=== PATIENT | male | born 1955 | race Caucasian/White ===

== ENCOUNTER → 2016-03-11 | Outpatient (CLI) | payer MEDICARE, MEDICAID ==
[~2016-03-11] MED LIST: (NONE)10 MG PO; ABILIFY10 MG PO; ABILIFY5 MG PO; ALDACTONE25 MG PO; AMBIEN10 MG PO; ARIPIPRAZOLE5 MG PO; ASPIRIN E.C.325 MG PO; ATIVAN1 MG IM; ATIVAN1 MG PO; BENADRYL50 MG PO; BRIN10TA PO; BRIN20TA PO; BUMETANIDE0.5 MG PO; BUPROPION HCL150 MG PO; CALCIUM 600 + M1 TAB PO; CALCIUM PLUS1 TA1 PO; CALCIUM600 M1 PO; CIPROFLOXACIN500 MG PO; CITALOPRAM20 MG PO; CLINDAMYCIN HC300 MG PO; CLONAZEPAM1 M1 PO; CLOPIDOGREL75 MG PO; DEPAKOTE DR500 MG PO; DEPAKOTE ER250 MG PO; DEPAKOTE ER500 MG PO; DEPAKOTE250 MG PO; DOXYCYCLINE100 M3 PO; EC NAPROSYN500 MG PO; FANAPT12 MG PO; FETZIMA PO; FLAGYL500 MG PO; FOLIC ACID1 MG PO; FUROSEMIDE20 MG PO; FUROSEMIDE40 MG PO; Fetzima PO; GEODON20 M1 IM; HALDOL1 MG PO; IBU-8800 MG PO; IBUPROFEN100 M1 PO; KLOR-CON 88 MEQ PO; LAMICTAL200 MG PO; LAMICTAL25 MG PO; LAMISIL AT11 TP; LAMOTRIGINE150 MG PO; LASIX20 MG PO; LASIX40 MG PO; LATU120T PO; LATU40TA PO; LATU80TA PO; LEVOTHYROXINE0.05 MG PO; LEVOTHYROXINE0.2 MG PO; LEVOTHYROXINE300 MCG PO; LEXAPRO20 MG PO; LISINOPRIL5 MG PO; MELATONIN5 M1 PO; MELATONIN5 M6 PO; METHYLPHENIDATE5 M1 PO; MIRALAX17 GM/PACK PO; MIRTAZAPINE15 MG PO; MOTRIN800 MG PO; MULTIPLE VITAMI1 TA3 PO; MULTIPLE VITAMI1 TAB PO; MULTIVITAMIN1 TA1 PO; NATURE'S BLEND F1 MG PO; NEUDEXT PO; NORTRIPTYLINE H50 M1 PO; NUED1CAP PO; ONE DAILY ESSE1 EACH PO; PAMELOR50 MG PO; PAMELOR75 MG PO; PLAVIX75 M1 PO; PLAVIX75 MG PO; POLYETHYLENE GL1 PO6; PRAVACHOL20 MG PO; PRAVASTATIN SOD20 MG PO; PREDNISONE10 MG PO; PRILOSEC20 M1 PO; REXULTI1 MG PO; RITALIN10 MG PO; ROZEREM8 MG PO; SAPHRIS10 MG PO; SAPHRIS10 MG SL; STOOL SOFTENER100 M1 PO; SYNTHROID,LEV200 MCG PO; Synthroid,Levo50 MCG PO; TRAZODONE HCL300 MG PO; TRAZODONE150 MG PO; TYLENOL500 MG PO; VIIBRYD40 PO; VITAMIN D50000 I3 PO; VITAMIN D50000 IU PO; VITAMIN D50000 UNIT PO; VRAYLAR3 MG PO; VRAYLAR6 MG PO; VYVANSE30 MG PO; VYVANSE50 MG PO; ZESTRIL,PRINIVI10 MG PO; ZESTRIL10 MG PO; ZETIA10 MG PO
== END | disposition home or self-care (01) ==
LOC: PHLEB 12:47
DX: R89.9 Unspecified abnormal finding in specimens from other organs, systems and tissues (principal)

== ENCOUNTER → 2016-05-19 | Outpatient (CLI) | payer MEDICARE, MEDICAID ==
[2016-05-19 17:18] LABS: BASO # 0.1 10*3/uL (0.0-0.1); BASO % 0.6 % (0.0-1.0); EOS # 0.3 10*3/uL (0.0-0.4); EOS % 1.9 % (1.0-4.0); HEMATOCRIT 37.5 % (42.0-52.0); HEMOGLOBIN 12.5 g/dl (14.0-18.0); IG # 0.1 10*3/uL (0.0-0.1); LYMPH # 2.3 10*3/uL (1.3-4.4); LYMPH % 16.6 % (27.0-41.0); MEAN CELL VOLUME 84.3 fl (80.0-94.0); MEAN CORPUSCULAR HGB 28.1 pg (27.0-31.0); MEAN CORPUSCULAR HGB CONC 33.3 g/dl (33.0-37.0); MEAN PLATELET VOLUME 11.2 fl (9.6-12.3); MONO # 1.1 10*3/uL (0.1-1.0); NEUT # 9.9 10*3/uL (2.3-7.9); NEUT % 72.3 % (47.0-73.0); PLATELET COUNT AUTOMATED 248 10*3/uL (130-400); RED BLOOD COUNT 4.45 10*6/uL (4.50-5.90); RED CELL DISTRI WIDTH 14.5 % (0-14.5); WHITE BLOOD COUNT 13.7 10*3/uL (4.8-10.8)
== END | disposition home or self-care (01) ==
LOC: LAB 16:47
PROVIDERS: Internal Medicine
DX: J44.9 Chronic obstructive pulmonary disease, unspecified (principal)

== ENCOUNTER 2016-05-25 14:30 | Emergency (ER) | payer MEDICARE, MEDICAID ==
[~2016-05-25] VITALS: Ht 187.9 cm; Wt 172.4 kg
[2016-05-25 15:13] LABS: BASO # 0.1 10*3/uL (0.0-0.1); BASO % 0.5 % (0.0-1.0); EOS # 0.3 10*3/uL (0.0-0.4); EOS % 1.9 % (1.0-4.0); HEMATOCRIT 39.8 % (42.0-52.0); HEMOGLOBIN 13.1 g/dl (14.0-18.0); IG # 0.1 10*3/uL (0.0-0.1); LYMPH # 1.9 10*3/uL (1.3-4.4); LYMPH % 13.5 % (27.0-41.0); MEAN CELL VOLUME 85.6 fl (80.0-94.0); MEAN CORPUSCULAR HGB 28.2 pg (27.0-31.0); MEAN CORPUSCULAR HGB CONC 32.9 g/dl (33.0-37.0); MONO % 6.7 % (3.0-9.0); NEUT # 10.9 10*3/uL (2.3-7.9); NEUT % 76.9 % (47.0-73.0); PLATELET COUNT AUTOMATED 243 10*3/uL (130-400); RED BLOOD COUNT 4.65 10*6/uL (4.50-5.90); RED CELL DISTRI WIDTH 14.7 % (0-14.5); WHITE BLOOD COUNT 14.2 10*3/uL (4.8-10.8)
[2016-05-25 15:25] LABS: BUN 21 mg/dl (7-24); CARBON DIOXIDE 27 mmol/L (21-32); CHLORIDE 103 mmol/L (98-107); EST GLOM FILT AFRICAN AMERICAN > 60 ml/min; GLUCOSE 101 mg/dL (65-99); POTASSIUM 4.2 mmol/L (3.5-5.1); SODIUM 138 mmol/L (136-145)
[2016-05-25 16:51] LABS: BILIRUBIN NEGATIVE (NEGATIVE); BLOOD NEGATIVE (NEGATIVE); CLARITY SL CLOUDY (CLEAR); COLOR YELLOW (YELLOW); GLUCOSE NEGATIVE (NEGATIVE); KETONE NEGATIVE (NEGATIVE); LEUKO ESTERASE NEGATIVE (NEGATIVE); NITRITE NEGATIVE (NEGATIVE); PH 5.5 (5.0-9.0); PROTEIN NEGATIVE (NEGATIVE)
[2016-05-25 17:02] LABS: URINE AMPHETAMINES < 1000 (1000ng/ml); URINE BARBITURATES < 200 (200ng/ml); URINE COCAINE < 300 (300ng/ml)
[2016-05-25 17:04] LABS: BACTERIA 2+; EPITHELIAL CELLS 0-2; URINE REFLEX COMMENT YES (NO)
[2016-05-25] MEDS ORDERED: LISINOPRIL5 MG PO (21:41)
== END 2016-05-25 18:08 | disposition home health service (06) ==
LOC: ED 14:30
PROVIDERS: Registered Nurse
DX: F33.2 Major depressive disorder, recurrent severe without psychotic features (principal); Z87.891 Personal history of nicotine dependence; Z98.890 Other specified postprocedural states; Z90.89 Acquired absence of other organs; Z79.899 Other long term (current) drug therapy

== ENCOUNTER 2016-05-25 18:40 | Inpatient (IN) | payer MEDICARE, MEDICAID ==
[~2016-05-25] VITALS: Ht 187.9 cm; Wt 172.4 kg
--- NOTE | ~2016-05-25 | PR ---
[place], [place] PROGRESS NOTE NAME: ISMAEL TOBIN UNIT #: [id number] ROOM: 314 DOCTOR: CAMERON MEYER BIRTHDATE: [birth year] DOS: 05/27/2016 CHIEF COMPLAINT: "Good morning." SUMMARY OF VISIT: The patient was assessed in the dining room where he has finished breakfast, engaged readily in conversation. Expresses desire to go home as soon as it was possible, stated that he felt well overall, but admitted as recent as yesterday he just did not feel well. MENTAL STATUS: He is alert and oriented to person, place, approximate time. Mood trending towards euthymic, but still some depressed overtones. Affect is flat and blunted in the constricted range. Some of this is his baseline. He stated that his sleep was okay last night. PLAN: His medications were adjusted significantly yesterday. We need to continue to monitor, see how he is going to do over the next 24 hours and then get a plan for him as far as discharge. NEDRA MEYER CNP CM:PNTRANS [id number] CAMERON MEYER 05/27/16 1258 interface
--- NOTE | ~2016-05-25 | WRIGHTHP ---
[place], [place] PATIENT HISTORY AND PHYSICAL EXAM NAME: ISMAEL TOBIN UNIT #: [id number] ROOM: 314 DOCTOR: SUE WEBB MD BIRTHDATE: [birth year] DOS: 05/26/2016 CHIEF COMPLAINT: "I don't feel well at all, Dr. Webb." HISTORY OF PRESENT ILLNESS: This is a 60-year-old white male who is well known to me from my private practice in [place], [place] as well as multiple psychiatric admissions here to the [facility]. He presented to the Emergency Room complaining of worsening depression with suicidal ideation. He wishes he were and cannot go on like this. He is not felt himself for several weeks. Complicating matters it appears that it is possible that his pharmacy erroneously sent him the wrong medications and he may have been taking a combination of newly prescribed antidepressants with old antidepressant regimen included. He endorsed multiple neurovegetative symptoms including poor sleep and appetite, energy, anhedonia, hopeless, helpless feelings, crying spells, and inability to cope. He is admitted now to rule out possible organic factors, to stabilize on medication and to engage in individual and jara milieu activity. PAST MEDICAL HISTORY: Remarkable for allergic rhinitis, acute renal failure with tubular necrosis, CHF, hypertension, folic acid deficiency, CVA, hypothyroidism, hyperlipidemia, obesity, osteoarthritis, vitamin D deficiency, and diabetes. MENTAL STATUS: The patient is alert and oriented. Mood is depressed. Affect is extremely flat and blunted with a constricted range. He has multiple neurovegetative symptoms are present. There is no hypomania or valentin. There are no overt auditory or visual hallucinations at the present time, although this has been positive in the past. Memory is intact. DIAGNOSIS: Major depression, recurrent, severe. PLAN: I will discontinue his trazodone and Depakote as he does not appear to have been on these his last discharge in March 2016. I will resume his Vraylar and his Pamelor and his Ritalin, what he was on post-discharge. We will maintain individual and jara milieu activity, returning home when stable. [place], [place] PATIENT HISTORY AND PHYSICAL EXAM NAME: ISMAEL TOBIN UNIT #: [id number] ROOM: 314 DOCTOR: SUE WEBB MD BIRTHDATE: [birth year] SUE WEBB MD CM:HISPHYS:PATIENT HISTORY AND PHYSICAL EXAMINATION [id number] SUE WEBB MD 05/26/16 1014 interface
--- NOTE | ~2016-05-25 | DS ---
[place], [place] DISCHARGE SUMMARY NAME: ISMAEL TOBIN UNIT #: [id number] ROOM: 314 DOCTOR: CAMERON MEYER BIRTHDATE: [birth year] DOS: 05/28/2016 HISTORY OF PRESENT ILLNESS: A 60-year-old male known to us from a private practice in [place], [place] with multiple psychiatric admissions here to the [facility]. He presented to the Emergency Room complaining of worsening depression and suicidal ideation. He was and cannot go on like this. He did not feel like himself for the last several weeks. Complicating matter: It appears that possibly that his Pharmacy erroneously sent him wrong medications, it looks like he got medications from his last day here and then when he was admitted to the medical floor, he got his old medications reordered, so he was taking multiple combinations of antidepressants and pills. He was admitted to rule out medical and organic and stabilize back on medication. PAST MEDICAL HISTORY: Allergic rhinitis, acute renal failure with tubular necrosis, CHF, hypertension, folic acid, CVA, hypothyroidism, hyperlipidemia, obesity, osteoarthritis, vitamin D deficiency, and diabetes. DIAGNOSIS: Major depression, recurrent, severe. PLAN: We discontinue the trazodone, the Depakote that we had discontinued on his last admission in March. We resumed his Vraylar, Pamelor, and Ritalin that he was discharged with. This is what he was on post his last discharge. The patient immediately started to feel better and more at his baseline and was asking to go home. MENTAL STATUS: Alert and oriented to person, place, time. Mood euthymic. Affect appropriate. No auditory or visual hallucinations, delusions, paranoia, valentin, or hypomania. No side effects of medication seen. Psych meds that he will be discharged on are vitamin D 50,000 International Units q. week; Ritalin 10 mg 1 at 7:30 a.m., another at 4:30 p.m.; Vraylar 3 mg at 8:00 p.m.; Pamelor 100 mg at bedtime. We will make sure that we reach out to the Pharmacy and make sure that they are aware of the medications that he should be on, so they can clean out their records on him as well. The patient is being discharged in stable condition. He will follow up with our office. [place], [place] DISCHARGE SUMMARY NAME: ISMAEL TOBIN UNIT #: [id number] ROOM: [facility] DOCTOR: CAMERON MEYER BIRTHDATE: [birth year] NEDRA MEYER CNP CM:DISCHOLU [id number] CAMERON MEYER 05/28/16 0932 interface
[2016-05-25 19:01] VITALS: BP 133/86
[2016-05-25 19:57] VITALS: BP 143/72
[2016-05-25] MEDS ORDERED: LISINOPRIL5 MG PO (21:41)
[2016-05-26 07:12] LABS: BASO # 0.1 10*3/uL (0.0-0.1); BASO % 0.4 % (0.0-1.0); EOS # 0.3 10*3/uL (0.0-0.4); EOS % 2.3 % (1.0-4.0); HEMATOCRIT 38.1 % (42.0-52.0); HEMOGLOBIN 12.6 g/dl (14.0-18.0); IG # 0.1 10*3/uL (0.0-0.1); LYMPH # 2.4 10*3/uL (1.3-4.4); LYMPH % 18.3 % (27.0-41.0); MEAN CELL VOLUME 85.2 fl (80.0-94.0); MEAN CORPUSCULAR HGB 28.2 pg (27.0-31.0); MEAN CORPUSCULAR HGB CONC 33.1 g/dl (33.0-37.0); MEAN PLATELET VOLUME 10.7 fl (9.6-12.3); MONO % 7.5 % (3.0-9.0); NEUT # 9.2 10*3/uL (2.3-7.9); PLATELET COUNT AUTOMATED 234 10*3/uL (130-400); RED BLOOD COUNT 4.47 10*6/uL (4.50-5.90); RED CELL DISTRI WIDTH 14.6 % (0-14.5); WHITE BLOOD COUNT 12.9 10*3/uL (4.8-10.8)
[2016-05-26 07:50] LABS: THYROID STIM HORMONE (HS) 0.178 uIU/ml (0.358-4.75)
[2016-05-26 07:52] LABS: HEMOGLOBIN A1c 6.4 % (4.8-5.6)
[2016-05-26 08:00] VITALS: BP 121/66
[2016-05-26 08:22] LABS: VITAMIN D, 25-HYDROXY 42.1 ng/mL (30-100)
[2016-05-26 08:25] LABS: FOLIC ACID > 24.00 ng/mL (>5.38)
[2016-05-26 20:14] VITALS: BP 132/73
[2016-05-27 07:52] VITALS: BP 125/85
[2016-05-27 20:09] VITALS: BP 109/66
[2016-05-28 08:00] VITALS: BP 105/68
[2016-05-28] MEDS ORDERED: NORTRIPTYLINE H50 M1 PO (08:38)
[2016-05-28] MEDS ORDERED: METHYLPHENIDATE5 M1 PO (08:38)
[2016-05-28] MEDS ORDERED: VRAYLAR3 MG PO (08:38)
[2016-05-28] MEDS ORDERED: BENZONATATE100 M1 PO (10:44)
[2016-05-28] MEDS ORDERED: LEVAQUIN750 M1 PO (10:44)
== END 2016-05-28 12:05 | disposition home health service (06) | DRG 885 ==
LOC: 3N 18:40
PROVIDERS: Psychiatry & Neurology Psychiatry; Student in an Organized Health Care Education/Training Program
DX: F33.2 Major depressive disorder, recurrent severe without psychotic features (principal); I11.0 Hypertensive heart disease with heart failure; R45.851 Suicidal ideations; I50.32 Chronic diastolic (congestive) heart failure; Z68.42 Body mass index [BMI] 45.0-49.9, adult; E03.9 Hypothyroidism, unspecified; M19.90 Unspecified osteoarthritis, unspecified site; D64.9 Anemia, unspecified; D72.829 Elevated white blood cell count, unspecified; E78.2 Mixed hyperlipidemia; E66.01 Morbid (severe) obesity due to excess calories; E53.8 Deficiency of other specified B group vitamins; E55.9 Vitamin D deficiency, unspecified; E11.65 Type 2 diabetes mellitus with hyperglycemia; J40 Bronchitis, not specified as acute or chronic; Z83.3 Family history of diabetes mellitus; Z86.73 Personal history of transient ischemic attack (TIA), and cerebral infarction without residual deficits; Z82.49 Family history of ischemic heart disease and other diseases of the circulatory system; Z79.899 Other long term (current) drug therapy

== ENCOUNTER 2016-06-27 13:45 | Inpatient (IN) | payer MEDICARE, MEDICAID ==
[~2016-06-27] VITALS: Ht 190.5 cm; Wt 171.9 kg
--- NOTE | ~2016-06-27 | CON ---
[place], [place] REPORT OF CONSULTATION NAME: ISMAEL TOBIN UNIT #: [id number] ROOM: 504 DOCTOR: RADHA GUTHRIE ED.D (COCO) BIRTHDATE: [birth year] DOS: 06/28/2016 HISTORY OF PRESENT ILLNESS: The patient is a 60-year-old male referred for an evaluation due to the fact his suicide screen was elevated. At the present time, this patient is on the 5th floor at [facility]. He states he is and has one daughter. He does have 2 sisters [address] Jaramillo is his family physician. His medical history is pertinent for thyroid disease, COPD, hypertension, morbid obesity, osteoarthritis, vitamin D deficiency, diabetes mellitus type 2 and major depressive disorder, recurrent. MEDICATIONS: Include Vraylar, Pamelor, Ritalin, vitamin D, Zetia, Lasix, Synthroid, lisinopril, pravastatin, and Aldactone. SOCIAL HISTORY: He denies any drug or alcohol use, and states he is a former smoker. This patient was awake, alert and oriented in all 3 spheres, but was extremely depressed. He states he is suicidal at this time. I discussed with him the option of going to the Senior Behavioral [facility] Unit here at [facility], he agreed that he needed to go there because he was afraid he will harm himself. I discussed this with Dr. Webb and he will probably be admitted later today after discussion with Dr. Stauffer and Dr. Webb. He does not appear to be having any active hallucinations, but is clearly suicidal. DIAGNOSES: 1. Major depressive disorder, severe -- recurrent. 2. Personality disorder, not otherwise specified. RECOMMENDATIONS: In my opinion, this patient would benefit from inpatient admission on the [facility] Unit at [facility]. The patient agreed to go today. Thank you very much for this consult. RADHA GUTHRIE ED.D CM:CONSTR:REPORT OF CONSULTATION 1147 06/28/16 1827 interface
[~2016-06-27 13:45] MED LIST changes: +BENZONATATE100 M1 PO; +LEVAQUIN750 M1 PO
[2016-06-27 13:49] VITALS: BP 146/58
[2016-06-27 14:02] LABS: BASO # 0.1 10*3/uL (0.0-0.1); BASO % 0.6 % (0.0-1.0); EOS # 0.4 10*3/uL (0.0-0.4); EOS % 2.8 % (1.0-4.0); HEMATOCRIT 37.4 % (42.0-52.0); HEMOGLOBIN 12.1 g/dl (14.0-18.0); IG # 0.1 10*3/uL (0.0-0.1); LYMPH # 1.8 10*3/uL (1.3-4.4); LYMPH % 14.2 % (27.0-41.0); MEAN CELL VOLUME 85.4 fl (80.0-94.0); MEAN CORPUSCULAR HGB 27.6 pg (27.0-31.0); MEAN CORPUSCULAR HGB CONC 32.4 g/dl (33.0-37.0); MEAN PLATELET VOLUME 11.2 fl (9.6-12.3); MONO # 0.6 10*3/uL (0.1-1.0); MONO % 4.6 % (3.0-9.0); NEUT # 9.8 10*3/uL (2.3-7.9); PLATELET COUNT AUTOMATED 240 10*3/uL (130-400); RED BLOOD COUNT 4.38 10*6/uL (4.50-5.90); RED CELL DISTRI WIDTH 14.6 % (0-14.5); WHITE BLOOD COUNT 12.7 10*3/uL (4.8-10.8)
[2016-06-27 14:12] LABS: PROTHROMBIN TIME 10.7 SECONDS (9.0-12.4)
[2016-06-27 14:15] LABS: ALBUMIN 3.2 gm/dl (3.1-4.5); ALKALINE PHOSPHATASE 82 U/L (45-117); BILIRUBIN, TOTAL 0.7 mg/dl (0.2-1.0); BUN 15 mg/dl (7-24); CARBON DIOXIDE 24 mmol/L (21-32); CHLORIDE 104 mmol/L (98-107); EST GLOM FILT AFRICAN AMERICAN > 60 ml/min; GLUCOSE 131 mg/dL (65-99); MAGNESIUM 1.9 mg/dL (1.5-2.1); SGOT/AST 25 IU/L (3-35); SGPT/ALT 33 U/L (12-78); SODIUM 140 mmol/L (136-145); TOTAL PROTEIN 8.1 gm/dL (6.4-8.2)
[2016-06-27 14:16] LABS: TROPONIN I < 0.015 ng/ml (<0.045)
[2016-06-27 14:49] VITALS: BP 119/77
[2016-06-27 16:30] VITALS: BP 119/55
[2016-06-27 17:05] VITALS: BP 119/55
[2016-06-27 20:00] VITALS: BP 137/85
[2016-06-28] VITALS: BP 141/86
[2016-06-28 06:58] LABS: BASO # 0.1 10*3/uL (0.0-0.1); BASO % 0.5 % (0.0-1.0); EOS # 0.4 10*3/uL (0.0-0.4); EOS % 3.1 % (1.0-4.0); HEMATOCRIT 36.8 % (42.0-52.0); HEMOGLOBIN 11.9 g/dl (14.0-18.0); IG # 0.1 10*3/uL (0.0-0.1); LYMPH # 1.9 10*3/uL (1.3-4.4); LYMPH % 14.8 % (27.0-41.0); MEAN CELL VOLUME 84.8 fl (80.0-94.0); MEAN CORPUSCULAR HGB 27.4 pg (27.0-31.0); MEAN CORPUSCULAR HGB CONC 32.3 g/dl (33.0-37.0); MONO # 0.8 10*3/uL (0.1-1.0); MONO % 6.4 % (3.0-9.0); NEUT # 9.8 10*3/uL (2.3-7.9); NEUT % 74.6 % (47.0-73.0); PLATELET COUNT AUTOMATED 229 10*3/uL (130-400); RED BLOOD COUNT 4.34 10*6/uL (4.50-5.90); RED CELL DISTRI WIDTH 14.6 % (0-14.5); WHITE BLOOD COUNT 13.1 10*3/uL (4.8-10.8)
[2016-06-28 07:05] LABS: PROTHROMBIN TIME 10.4 SECONDS (9.0-12.4)
[2016-06-28 07:12] LABS: BUN 14 mg/dl (7-24); CARBON DIOXIDE 24 mmol/L (21-32); CHLORIDE 107 mmol/L (98-107); EST GLOM FILT AFRICAN AMERICAN > 60 ml/min; GLUCOSE 115 mg/dL (65-99); MAGNESIUM 2.1 mg/dL (1.5-2.1); PHOSPHOROUS 3.6 mg/dL (2.5-4.9); POTASSIUM 4.1 mmol/L (3.5-5.1); SODIUM 139 mmol/L (136-145)
[2016-06-28 08:00] VITALS: BP 128/88
[2016-06-28 12:00] VITALS: BP 111/66
[2016-06-28] MEDS ORDERED: NORTRIPTYLINE H50 M1 PO (15:09)
[2016-06-28] MEDS ORDERED: RITALIN PO (15:11)
[2016-06-28 15:49] VITALS: BP 100/55
== END 2016-06-28 15:51 | disposition home health service (06) | DRG 206 ==
LOC: ED 13:45 → EDHOLD 15:57 → 5E 16:03
PROVIDERS: Emergency Medicine; Family Medicine
DX: M94.0 Chondrocostal junction syndrome [Tietze] (principal); I11.0 Hypertensive heart disease with heart failure; I50.32 Chronic diastolic (congestive) heart failure; E44.1 Mild protein-calorie malnutrition; Z68.42 Body mass index [BMI] 45.0-49.9, adult; F31.9 Bipolar disorder, unspecified; E66.01 Morbid (severe) obesity due to excess calories; E78.2 Mixed hyperlipidemia; M19.90 Unspecified osteoarthritis, unspecified site; E89.0 Postprocedural hypothyroidism; D72.829 Elevated white blood cell count, unspecified; D64.9 Anemia, unspecified; E11.65 Type 2 diabetes mellitus with hyperglycemia; J30.9 Allergic rhinitis, unspecified; E55.9 Vitamin D deficiency, unspecified; E53.8 Deficiency of other specified B group vitamins; J44.9 Chronic obstructive pulmonary disease, unspecified; F60.9 Personality disorder, unspecified; Z86.73 Personal history of transient ischemic attack (TIA), and cerebral infarction without residual deficits; Z79.4 Long term (current) use of insulin; Z79.899 Other long term (current) drug therapy; Z87.891 Personal history of nicotine dependence; Z82.49 Family history of ischemic heart disease and other diseases of the circulatory system; Z83.3 Family history of diabetes mellitus

== ENCOUNTER 2016-06-28 14:56 | Inpatient (IN) | payer MEDICARE, MEDICAID ==
[~2016-06-28] VITALS: Ht 190.5 cm; Wt 171.9 kg
--- NOTE | ~2016-06-28 | DS ---
[place], [place] DISCHARGE SUMMARY NAME[facility]BIN [id number] UNIT #: [id number] ROOM: 312 DOCTOR: CAMERON MEYER BIRTHDATE: [birth year] DOS: 07/14/2016 HISTORY OF PRESENT ILLNESS: This is a 61-year-old gentleman known to us from his multiple psychiatric admissions to the Behavioral Health Unit as well as our outpatient practice at [place], [place]. He presented to the Emergency Room with chief complaint of chest pain and subsequently he was admitted to the medical floor where organic factors were rule out. He was evaluated by Dr. Shant Vasquez, psychologist. In the course of his evaluation, I found him to be significantly depressed with multiple neurovegetative symptoms including poor sleep, appetite, anergia, anhedonia, helplessness, hopelessness feeling, crying spells, inability to cope. He endorses positive suicidal thoughts without a plan. He reports that he has been compliant with his medications, but is gradually decompensated for no apparent reason. He was admitted to behavioral health unit to rule out organic factors and to try to stabilize him on the medication. PAST MEDICAL HISTORY: Includes normocytic anemia, hypothyroidism, allergic rhinitis, osteoarthritis, hypertension, congestive heart failure, vitamin D deficiency, folic acid deficiency, mild protein-calorie malnutrition, morbid obesity, COPD, and diabetes. HOSPITAL COURSE: We resumed his Pamelor, his Vraylar and restarted him back on his Ritalin. Eventually, the Vraylar was increased over the course of his stay to help augment the effectiveness of the Pamelor. The patient would do well for a while and then all of a sudden, the medications stopped working. We need to evaluate as outpatient the possibility of maybe doing a genetic swab on him if insurance will pay. This is an expensive procedure, a few thousand dollars. Eventually, we discontinued his Rozerem and Vraylar due to this ineffectiveness and his Ritalin because we were not able to eventually obtain it here at the hospital. We started him on Seroquel 100 mg at night to help with severe treatment resistant depression and sleep. It was also augmenting the effectiveness of his Fetzima which was at 120 mg q.8 p.m. that was also helping with depression and sleep and then we eventually obtained Vyvanse to help stimulate his energy and it lasts 10-12 hours during the day to help give him some increased energy, so that he does not feel as depressed. Engage in individual and jara milieu therapy and patient eventually was sleeping better and overall feeling better. MENTAL STATUS: He is alert and oriented to person, place, approximate time. Mood is trending towards euthymic, but there is ongoing depression, which unfortunately I believe is his baseline. Affect is flat, blunted in the constricted range. He still endorses multiple neurovegetative symptoms at times, but this morning upon meeting me in the cutler, he said, "I slept very well last night and I think I am ready to go home." There are no overt signs of auditory or visual hallucinations, delusions, paranoia, valentin or hypomania. PLAN: The patient is being discharged to home. He had originally wanted to be placed into assisted living. Unfortunately, I do not think he meets the criteria that assisted livings need and so we were denied at every crossroad we came to. He is being discharged on Vyvanse 30 mg q.a.m., Seroquel 100 mg at [place], [place] DISCHARGE SUMMARY NAME: ISMAEL TOBIN UNIT #: [id number] ROOM: 312 DOCTOR: CAMERON MEYER BIRTHDATE: [birth year] bedtime, Fetzima 120 mg q.8 p.m. He is being discharged in stable condition. He needs to follow up at outpatient therapy with Sabine Benson and psychiatrist for medication management. NEDRA MEYER CNP CM:DISCHARG [id number] CAMERON MEYER 07/14/16 1304 interface
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
--- NOTE | ~2016-06-28 | PR ---
[place], [place] PROGRESS NOTE NAME: ISMAEL TOBIN UNIT #: [id number] ROOM: 312 DOCTOR: SUE GANNON MD BIRTHDATE: [birth year] DOS: 07/10/2016 CHIEF COMPLAINT: "I slept may be a little better last night. I think the medicine might be helping." SUMMARY OF THE VISIT: The patient was interviewed in the dining area, where he was sitting alone. He reports that he did sleep a little better with the medication changes and is perhaps starting to feel a little bit less depressed. He still lacks energy and desire and still finds it very hard for him to engage in activities. He is excessively worried about the future and is hoping that he is able to get into the assisted living as this will take a lot of stress off of his shoulders. His only complaint from a side effect standpoint is a mild headache, but these symptoms are not significant enough that warrants any adjustment of the medicine. MENTAL STATUS: He is alert and oriented to person, place and time. Mood does seem to be slightly trending towards euthymia and affect is more appropriate. There are no symptoms of valentin or hypomania. There are no overt auditory or visual hallucinations. Memory is fairly intact. PLAN: I will maximize out Fetzima to 120 mg at bedtime. I will change the Ritalin, so that he receives only a 10 mg dose of 7 a.m. and at 2:00 p.m., try to prevent having him take the Ritalin too late in the day, so it does not interfere with his sleep patterns. We will engage in individual and jara milieu activity, returning home when stable. SUE GANNON MD CM:PNTRANS [phone] SUE GANNON MD 07/10/16 1018 interface
--- NOTE | ~2016-06-28 | PR ---
[place], [place] PROGRESS NOTE NAME: ISMAEL TOBIN UNIT #: [id number] ROOM: 312 DOCTOR: CAMERON MEYER BIRTHDATE: [birth year] DOS: 07/08/2016 CHIEF COMPLAINT: "I am still depressed. I am really sorry about that." SUMMARY OF VISIT: The patient was assessed in the dining room where he was finishing up his coffee. He still states that he is still depressed and this is upsetting to him and that he is waking every hour at least once or twice. MENTAL STATUS EXAMINATION: He is alert and oriented to person, place, approximate time. Mood still very depressed. Affect is flat, blunted, and in a constricted range. There is no overt signs of auditory or visual hallucinations, delusions, paranoia, valentin or hypomania. PLAN: Dr. Webb discontinued his Pamelor yesterday and started him on Fetzima. I discussed with Dr. Webb, I am going to go ahead and increase that Fetzima again and with the goal to rapidly titrate this up and utilize the Rozerem at bedtime straight and trying to bring him back to break his cycles of not sleeping. We will continue to try to engage in individual and jara milieu therapy. We are still looking into the option of the possible assisted living for him to help with his loneliness and his need to have some assistance with his ADLs and daily stuff. Plan to discharge once stable. NEDRA MEYER CNP CM:PNTRANS 8 [phone] CAMERON MEYER 07/08/162306 interface
--- NOTE | ~2016-06-28 | PR ---
[place], [place] PROGRESS NOTE NAME: ISMAEL TOBIN UNIT #: [id number] ROOM: 312 DOCTOR: MEERA PRATT BIRTHDATE: [birth year] DOS: 07/12/2016 CHIEF COMPLAINT: "I slept better last night." SUMMARY OF THE VISIT: The patient was seen in the group room, where he was seated by himself in the corner. He engaged pretty readily whenever I went over to talk to him. He did not have his afternoon dose of Ritalin last night and states that he did actually sleep better last night. He still remains nervous about going home, but is also open to going to assisted living after evaluation once he gets home. His mood is good. Affect is flat. MENTAL STATUS EXAMINATION: He is alert and oriented. He actually was kind of positive about going home and going to assisted living. PLAN: We will go ahead and discontinue his afternoon dose of Ritalin since it seems that he slept better without having that. Continue to engage in individual and jara milieu and discharge to home whenever stable. Meera Pratt NP CM:PNARMAAN 5 [phone] MEERA PRATT 07/12/161909 interface
--- NOTE | ~2016-06-28 | PR ---
[place], [place] PROGRESS NOTE NAME: ISMAEL TOBIN UNIT #: [id number] ROOM: 312 DOCTOR: CAMERON MEYER BIRTHDATE: [birth year] DOS: 07/03/2016 CHIEF COMPLAINT: "Good morning." SUMMARY OF VISIT: The patient was interviewed in his room where he was getting up getting ready for the day. The patient is still overwhelmingly depressed. He talked to him about the fact that he only lives in one room apartment. A few times a week he will get up and have breakfast at the [employer] shop and sometimes he will just go to [employer] and walk around. This is the first time he has admitted to being overwhelmingly lonely, and that his depression is just so bad that he just automatically starts wishing his life was over because he is so alone and depressed. MENTAL STATUS: He is alert and oriented to person, place, approximate time. Mood still depressed. Affect is flat, blunted in a constricted range. Again, he is opening up a little bit more. He did complain that he does not feel that he is sleeping, but he is not sure. We did increase his one medication last night to help with sleep. I am going to leave the medications alone tonight and see if we get some improvement in his sleep before just adjusting his medications more. PLAN: Again I increased his Pamelor to 150 mg at bedtime last night up from 100 mg. We will continue to try to engage in individual and jara milieu therapy. We are working with social work to see if he is a candidate for assisted living more so because of his severe depression and loneliness. I think this is what is affecting his quality of life is his loneliness and then this is what is triggering his depression and suicidal ideation. He just has no support system, no friends, nothing. We will continue to try to engage in individual and jara milieu therapy, adjust medications accordingly and go from there. NEDRA MEYER CNP CM:PNTRANS [id number] CAMERON MEYER 07/04/16 0018 interface
--- NOTE | ~2016-06-28 | PR ---
[place], [place] PROGRESS NOTE NAME: ISMAEL TOBIN UNIT #: [id number] ROOM: 312 DOCTOR: SUE GANNON MD BIRTHDATE: [birth year] DOS: 07/13/2016 CHIEF COMPLAINT: "I am still so depressed history, I am sorry." SUMMARY OF THE VISIT: The patient was interviewed in the dining area, where he sat by himself. As I approached, he reported to me that he still feels horribly depressed and that he is not sleeping well at all. He tends to toss and turn throughout the night and then has little to no energy during the day. He complains of poor concentration and fleeting suicidal thoughts. He denies medication side effects and is unclear though the meds really do seem to be helping or not. MENTAL STATUS: He is alert and oriented with some time gaps. Mood does seem to be depressed. Affect is flat, blunted with a constricted range. He endorses multiple neurovegetative symptoms. There is no valentin or hypomania, likewise there are no auditory or visual hallucinations. No delusions, no paranoia. Memory is relatively intact. PLAN: At this point, I will discontinue the Rozerem and the Vraylar due to ineffectiveness. I will discontinue Ritalin due to the hospital not being able to obtain it. I will start him on Seroquel 100 mg at bedtime. I will be using this not only to augment the effectiveness of the Fetzima but also to act as a sleep aid. I will discuss with the pharmacy whether or not they could obtain Vyvanse using this, then as a stimulate that will last a good 10-12 hours during the day. We will continue to engage in individual and jara milieu activity with the ultimate plan to discharge then when stable. SUE GANNON MD CM:PNTRANS [phone] SUE GANNON MD 07/13/16912 interface
--- NOTE | ~2016-06-28 | PR ---
[place], [place] PROGRESS NOTE NAME: ISMAEL TOBIN UNIT #: [id number] ROOM: 312 DOCTOR: SUE WEBB MD BIRTHDATE: [birth year] DOS: 06/30/2016 CHIEF COMPLAINT: "I am still depressed; Dr. Webb, but I did sleep a little better." SUMMARY OF THE VISIT: The patient was interviewed as he rested quietly in bed. He awoke easily and sat up and engaged in conversation with me reporting that he did sleep a little better with the increase in the Vraylar, but still feels horribly down and depressed. He reports he lacks energy and desire and just seems very hopeless and helpless. MENTAL STATUS: He is alert and oriented. Mood does seem to be depressed. Affect is flat and blunted with constricted range. There is no hypomania or valentin. He does still have edginess with some irritability. There are no auditory or visual hallucinations; however, no delusions, no paranoia. Memory is relatively intact. PLAN: I will go ahead and maximize the dose of Vraylar now from 4.5 mg at bedtime to 6 mg at bedtime. Maintain his Pamelor and Ritalin at their current dosages engage in individual and jara milieu activity with the plan to return home when psychiatrically stable. SUE WEBB MD CM:PNTRANS [phone] 1 SUE WEBB MD 07/01/16 0213 interface
--- NOTE | ~2016-06-28 | PR ---
[place], [place] PROGRESS NOTE NAME: ISMAEL TOBIN UNIT #: [id number] ROOM: 312 DOCTOR: SUE GANNON MD BIRTHDATE: [birth year] DOS: 07/07/2016 INTERVAL NOTE CHIEF COMPLAINT: "I still didn't sleep well Dr. Gannon, I don't know what is wrong with me." SUMMARY OF THE VISIT: The patient was interviewed as he sat eating his breakfast. He reported very happily that Sabine Benson, his outpatient counselor, did come and visit him yesterday. On a negative note though, he reports he is continuing to have significant sleep difficulty with difficulty falling asleep, sleep continuity disturbance, director labor standards awakening. He remains very despondent and depressed and sees no hope in life. He still voices that he feels that at times the world would be better off without him in it. He is hopeful though that social problems specialist will be able to assist him in placement into [place] an assisted living community. At this point, I discussed with him the option of switching off the Pamelor and he is willing to do so. MENTAL STATUS: He remains alert and oriented with some time gaps. Mood remains very depressed. Affect is flat and blunted with constricted range. There is no hypomania or valentin. There are no auditory or visual hallucinations. No delusions, no paranoia. Short, intermediate, and penitentiary memory are relatively intact. PLAN: I will go ahead and discontinue the Pamelor now given the fact that the dose was gradually pushed to its maximum of 200 without much benefit. I will start him on a unique antidepressant, Fetzima 40 mg at bedtime with the plan to rapidly titrate this upward and also utilize Rozerem 8 mg at bedtime straight in an effort to try to break the cycle of him not sleeping. We will continue to engage him in individual and jara milieu activity with the ultimate plan to place at [place] when stable. SUE GANNON MD CM:PNTRANS 0804 SUE GANNON MD 07/08/1639 interface
--- NOTE | ~2016-06-28 | PR ---
[place], [place] PROGRESS NOTE NAME: ISMAEL TOBIN UNIT #: [id number] ROOM: 312 DOCTOR: MEERA PRATT BIRTHDATE: [birth year] DOS: 07/11/2016 CHIEF COMPLAINT: "I didn't sleep well and I have had an upset stomach yesterday and today." SUBJECTIVE: He was seen in the dining room. He had eaten a 100% of his breakfast and 75-100% of all of his meals the day prior. He seems to have a lot of somatic complaints. The staff reported that he did sleep last night. He seems very nervous about moving on to the next level of care and that may be why he is having these somatic complaints. We will continue to monitor and support him. He will continue to attend groups and hopefully get him more comfortable with moving onto the next level of care. Meera Pratt NP CM:RED [id number] MEERA PRATT 07/11/16 1357 interface
--- NOTE | ~2016-06-28 | PR ---
[place], [place] PROGRESS NOTE NAME: ISMAEL TOBIN UNIT #: [id number] ROOM: 312 DOCTOR: CAMERON MEYER BIRTHDATE: [birth year] DOS: 07/04/2016 CHIEF COMPLAINT: "Good morning, I'm still quite depressed, I'm not sleeping, I'm still suicidal." SUMMARY OF VISIT: The patient was assessed in the dining room where he was sitting by himself. He is just overwhelmingly depressed. He is stating that he thinks he is waking up every hour and the hour; however, nurses' notes note that he is sleeping when they come into his room in the evenings. He offers immediately that he is still depressed, still thinking about suicide, no plan and he apologizes. This has been his routine since he has been here. MENTAL STATUS: He is alert and oriented to person, place, approximate time. He looks depressed. He is acting depressed. Affect is flat, blunted in a constricted range, but some of this is his baseline. PLAN: He is on the maximum dose of Pamelor 150 mg at bedtime. He is on the maximum dose of Vraylar 6 mg q. day. I am going to bump up his Ritalin. I know Dr. Webb started that to give him a little boost of energy, kind of get him out of that depressive . He is currently on 10 mg twice a day. I am going to increase it to 15 mg twice a day and see if this boost of energy will be interpreted by him and his brain as getting out of his depression. We will continue to try to engage in individual and jara milieu therapy with the plan to discharge when stable. NEDRA MEYER CNP CM:PNTRANS [id number] CAMERON MEYER 07/04/16 1354 interface
--- NOTE | ~2016-06-28 | WRIGHTHP ---
[place], [place] PATIENT HISTORY AND PHYSICAL EXAM [id number] UNIT #: [id number] ROOM: 315 DOCTOR: SUE GANNON MD BIRTHDATE: [birth year] DOS: 06/28/2016 CHIEF COMPLAINT: "I have just been so depressed. I don't know what is wrong." HISTORY OF PRESENT ILLNESS: This is a 60-year-old white male who is known to me from multiple psychiatric admissions to the [facility] as well as my outpatient practice in [place], [place]. The patient had presented to the Emergency Room with a chief complaint of chest pain and subsequently got admitted to the medical floor where organic factors were ruled out. He was evaluated by Dr. Shant Vasquez, psychologist, who in the course of evaluating him found him to be horribly depressed with multiple neurovegetative symptoms that included poor sleep and appetite, anergia, anhedonia, hopeless and helpless feelings, crying spells, and inability to cope. He also endorsed positive suicidal thoughts with a plan. The patient reports that he has been compliant with his medicine, but just has gradually decompensated for no apparent reason. He was admitted to the [facility] to further rule out organic factors and to attempt to stabilize on medication. PAST MEDICAL HISTORY: Remarkable for normocytic anemia, hypothyroidism, allergic rhinitis, osteoarthritis, hypertension, chronic congestive heart failure, vitamin D deficiency, folic acid deficiency, mild protein-calorie malnutrition, morbid obesity, COPD, and diabetes. MENTAL STATUS: The patient is alert and oriented to person, place, and time. Mood is depressed with anxious overtones and there is a hint of irritability. He is very short and terse and does endorse that he is feeling much more on edge and irritable. He denies any auditory or visual hallucinations. No delusions, no paranoia. Memory is fairly well intact. DIAGNOSIS: Bipolar type 1, mixed. PLAN: I have resumed his Pamelor, his Vraylar, and I have restarted his Ritalin. I will increase the Vraylar from 3 mg at bedtime to 4.5 mg at bedtime to augment the Pamelor as well as to decrease some of the mood lability. We will engage him in individual and jara milieu activity with the ultimate plan to return home when stable. [place], [place] PATIENT HISTORY AND PHYSICAL EXAM NAME: ISMAEL TOBIN UNIT #: [id number] ROOM: 315 DOCTOR: SUE GANNON MD BIRTHDATE: [birth year] SUE GANNON MD CM:HISPHYS:PATIENT HISTORY AND PHYSICAL EXAMINATION SUE GANNON MD 06/29/1649 interface
--- NOTE | ~2016-06-28 | PR ---
[place], [place] PROGRESS NOTE NAME: ISMAEL TOBIN UNIT #: [id number] ROOM: 312 DOCTOR: SUE WEBB MD BIRTHDATE: [birth year] DOS: 07/06/2016 CHIEF COMPLAINT: "Dr. Webb, I didn't sleep well at all last night." SUMMARY OF THE VISIT: The patient was interviewed in the dining area where he continued to complain of severe depression. He notes that last night he had trouble falling asleep, he woke up frequently throughout the night, tossing and turning still stating he is very depressed. He is anxious to find out whether or not he will be able to qualify for an assisted living situation. He and I talked at length about [facility] and what to expect there and he does seem reasonable excited about that possibility. He reports tolerating the current medication regimen well, noting no side effects. MENTAL STATUS: He is alert and oriented to person, place and time. Mood does seem to be still depressed with anxious overtones. There is no valentin. There is no psychosis. Memory is relatively intact. PLAN: I will increase the Pamelor from 150 mg at bedtime to 200 mg at bedtime. I may need to switch to amitriptyline or to another agent altogether. I will put a consult in for Sabine Benson, his outpatient counselor, continue to have social media specialist explore assisted living possibilities. SUE WEBB MD CM:PNTRANS [id number] SUE WEBB MD 07/06/16 1048 interface
--- NOTE | ~2016-06-28 | PR ---
[place], [place] PROGRESS NOTE NAME: ISMAEL TOBIN UNIT #: [id number] ROOM: 312 DOCTOR: CAMERON MEYER BIRTHDATE: [birth year] DOS: 07/01/2016 CHIEF COMPLAINT: "Good morning, I'm still very depressed and suicidal, but no plan." SUMMARY OF VISIT: The patient was interviewed in the dining room where he was eating breakfast. He has a good appetite. He states that he slept well, but he immediately went in on the fact that his depression is so bad. He does not know why it continues to get bad and he is not getting any better. I asked about outside therapy. He does follow with Sabine Benson, he says for more than 20 years. MENTAL STATUS: He is alert and oriented to person, place, approximate time. Affect is flat, blunted in a constricted range. He is very depressed mood corona. No overt signs of auditory or visual hallucinations, delusions, paranoia, valentin or hypomania. He is not really irritable. He just frustrated with his situation. He just does not know why when he gets depressed like this. He automatically starts thinking negative thoughts. He says when he things like that about suicide, he never has a plan, but he is just frustrated with that is the first place he goes in his mind. PLAN: I am going to keep his meds where they are right now. We are going to try to engage in individual and jara milieu therapy. I think the patient needs a strong male influence in his life to help redirect him, may be try and change things up for him a little bit. He did ask about if he will qualify for assisted living. I think part of his problem also is this man is very lonely. He does not have a lot of outside friends and interactions and I think he just gets lonely and scared. I am going to see how he does over the next 24 hours and we can adjust meds from there. NEDRA MEYER CNP CM:PNTRANS [id number] CAMERON MEYER 07/02/16 0117 interface
--- NOTE | ~2016-06-28 | PR ---
[place], [place] PROGRESS NOTE NAME: ISMAEL TOBIN UNIT #: [id number] ROOM: 312 DOCTOR: CAMERON MEYER BIRTHDATE: [birth year] DOS: 07/02/2016 CHIEF COMPLAINT: "Good morning, I am still suicidal, no plan." SUMMARY OF VISIT: The patient was interviewed in the dining room. Today is his birthday. We are ordering a cake. He is still stating that he is depressed and suicidal without a plan, and he is frustrated that he just always suicidal. I really believe that some of this issue is this gentleman is just lonely. He does not have a good support system in the community. He is by himself. Most of his Emergency Room visits are in the evening when he is not in adult daycare. He is by himself, and he starts living . He asked again about if he could possibly be approved for assisted living. I think he just needs people around him. MENTAL STATUS: He is alert and oriented to person, place, approximate time. Affect is flat and blunted. Mood is still depressed. PLAN: Discussed with Dr. Webb. We are going to increases his Pamelor to 150 mg at bedtime. We will continue to try to engage in individual and jara milieu therapy and plan to discharge once stable. NEDRA MEYER CNP CM:PNTRANS 0831 CAMERON MEYER 07/03/16 0105 interface
--- NOTE | ~2016-06-28 | PR ---
[place], [place] PROGRESS NOTE NAME: ISMAEL TOBIN UNIT #: [id number] ROOM: 312 DOCTOR: CAMERON MEYER BIRTHDATE: [birth year] DOS: 07/09/2016 CHIEF COMPLAINT: "I still think I am sleepy and I am still depressed, I am sorry." SUMMARY OF VISIT: The patient was assessed in the dining room. It should be noted that I discussed this with the patient that they monitored him every 15-20 minutes last night and he was soundly asleep and at several occasions, they said his name very loudly and he never woke up. The patient seems surprised by this, said that he still feels like he is not sleeping. I did discuss further with the patient is it possible that he might have obstructive sleep apnea and he is like "oh I do have that, I am supposed to be wearing CPAP, but I don't like how it fit, so I stopped wearing it." This may be a contributing factor to him feeling depressed, inability to concentrate, lethargic, feeling like he is not sleeping. MENTAL STATUS: He is alert and oriented to person, place, approximate to time. Mood is still on depressed side. Affect flat, blunted, constricted range, some of this is his baseline however. No overt signs of auditory or visual hallucinations, delusions, paranoia, valentin or hypomania. PLAN: We stopped the Pamelor yesterday. We started him on Fetzima, I increased it yesterday. I am going to keep his medications where they are at now. I did discuss with nursing also we need to schedule him a followup sleep study since it has been so long. Apparently, he had the full mask, he may just need the nasal type mask, this may help with some of the symptoms of depression that were seen and his fixation on him not sleeping well. We will continue to try to engage in individual and jara milieu therapy. Continue to follow up and see if assisted living is an option for him and go from there NEDRA MEYER CNP CM:PNTRANS [id number] CAMERON MEYER 07/09/16 1203 interface
[2016-06-28] MEDS ORDERED: NORTRIPTYLINE H50 M1 PO (15:09)
[2016-06-28] MEDS ORDERED: RITALIN PO (15:11)
[2016-06-28 16:10] VITALS: BP 127/70
[2016-06-28 18:23] LABS: BILIRUBIN NEGATIVE (NEGATIVE); BLOOD NEGATIVE (NEGATIVE); CLARITY CLEAR (CLEAR); COLOR YELLOW (YELLOW); GLUCOSE NEGATIVE (NEGATIVE); KETONE NEGATIVE (NEGATIVE); LEUKO ESTERASE NEGATIVE (NEGATIVE); NITRITE NEGATIVE (NEGATIVE); PROTEIN NEGATIVE (NEGATIVE); SPECIFIC GRAVITY <= 1.005 (1.005-1.030); UROBILINOGEN 0.2 E.U./dl (0.2-1.0)
[2016-06-28 18:29] LABS: RBC 0-2 rbc/hpf (0-2); URINE REFLEX COMMENT NO (NO); WBC 0-2 wbc/hpf (0-5)
[2016-06-28 20:18] VITALS: BP 98/85
[2016-06-28 20:36] VITALS: BP 122/70
[2016-06-29 07:52] VITALS: BP 121/60
[2016-06-29 08:39] LABS: THYROID STIM HORMONE (HS) 0.036 uIU/ml (0.358-4.75)
[2016-06-29 08:50] LABS: HEMOGLOBIN A1c 6.4 % (4.8-5.6)
[2016-06-29 09:19] LABS: FOLIC ACID > 24.00 ng/mL (>5.38)
[2016-06-29 20:43] VITALS: BP 111/64
[2016-06-30 07:56] VITALS: BP 108/64; BP 122/72
[2016-06-30 20:36] VITALS: BP 106/63
[2016-07-01 07:52] VITALS: BP 126/69
[2016-07-01 20:01] VITALS: BP 103/64
[2016-07-02 07:46] VITALS: BP 116/62
[2016-07-02 20:05] VITALS: BP 111/55
[2016-07-03 07:56] VITALS: BP 140/86
[2016-07-03 19:39] VITALS: BP 125/75
[2016-07-04 07:37] VITALS: BP 114/71
[2016-07-04 19:52] VITALS: BP 116/59
[2016-07-05 07:42] VITALS: BP 128/72
[2016-07-05 21:07] VITALS: BP 112/53
[2016-07-06 07:41] VITALS: BP 114/88
[2016-07-06 20:21] VITALS: BP 112/46
[2016-07-07 08:19] VITALS: BP 120/69
[2016-07-07 20:00] VITALS: BP 122/72
[2016-07-08 07:18] VITALS: BP 135/82
[2016-07-08 19:36] VITALS: BP 121/74
[2016-07-09 08:00] VITALS: BP 121/63
[2016-07-09 19:47] VITALS: BP 122/66
[2016-07-10 07:48] VITALS: BP 144/67
[2016-07-10 19:33] VITALS: BP 109/50
[2016-07-11 07:36] VITALS: BP 120/88
[2016-07-11 19:13] VITALS: BP 114/63
[2016-07-12 07:42] VITALS: BP 103/58
[2016-07-12 19:53] VITALS: BP 137/71
[2016-07-13 08:08] VITALS: BP 130/80
[2016-07-13 20:00] VITALS: BP 129/70
[2016-07-14 07:58] VITALS: BP 113/49
[2016-07-14] MEDS ORDERED: VYVANSE30 MG PO (08:01)
[2016-07-14] MEDS ORDERED: QUETIAPINE FUM100 M3 PO (08:01)
[2016-07-14] MEDS ORDERED: FETZIMA120 M1 PO (08:01)
== END 2016-07-14 13:10 | disposition home or self-care (01) | DRG 885 ==
LOC: 3N 14:56
PROVIDERS: Psychiatry & Neurology Psychiatry
DX: F31.60 Bipolar disorder, current episode mixed, unspecified (principal); I11.0 Hypertensive heart disease with heart failure; I50.32 Chronic diastolic (congestive) heart failure; Z68.42 Body mass index [BMI] 45.0-49.9, adult; E66.01 Morbid (severe) obesity due to excess calories; D72.829 Elevated white blood cell count, unspecified; E11.65 Type 2 diabetes mellitus with hyperglycemia; D64.9 Anemia, unspecified; M19.91 Primary osteoarthritis, unspecified site; E78.2 Mixed hyperlipidemia; J43.9 Emphysema, unspecified; K59.00 Constipation, unspecified; E89.0 Postprocedural hypothyroidism; Z87.891 Personal history of nicotine dependence; Z82.49 Family history of ischemic heart disease and other diseases of the circulatory system; Z79.899 Other long term (current) drug therapy

== ENCOUNTER 2016-08-11 15:14 | Inpatient (IN) | payer MEDICARE, MEDICAID ==
[~2016-08-11] VITALS: Ht 188 cm; Wt 169.2 kg
[2016-08-11 15:14] VITALS: BP 146/86
[~2016-08-11 15:14] MED LIST changes: +FETZIMA120 M1 PO; +QUETIAPINE FUM100 M3 PO; +RITALIN PO
[2016-08-11 15:39] LABS: BASO # 0.1 10*3/uL (0.0-0.1); BASO % 0.6 % (0.0-1.0); EOS # 0.2 10*3/uL (0.0-0.4); EOS % 1.5 % (1.0-4.0); HEMATOCRIT 36.6 % (42.0-52.0); HEMOGLOBIN 11.9 g/dl (14.0-18.0); IG # 0.1 10*3/uL (0.0-0.1); LYMPH # 2.1 10*3/uL (1.3-4.4); LYMPH % 12.9 % (27.0-41.0); MEAN CELL VOLUME 85.9 fl (80.0-94.0); MEAN CORPUSCULAR HGB 27.9 pg (27.0-31.0); MEAN CORPUSCULAR HGB CONC 32.5 g/dl (33.0-37.0); MEAN PLATELET VOLUME 10.9 fl (9.6-12.3); MONO # 0.9 10*3/uL (0.1-1.0); MONO % 5.3 % (3.0-9.0); NEUT # 12.9 10*3/uL (2.3-7.9); PLATELET COUNT AUTOMATED 248 10*3/uL (130-400); RED BLOOD COUNT 4.26 10*6/uL (4.50-5.90); RED CELL DISTRI WIDTH 15.3 % (0-14.5); WHITE BLOOD COUNT 16.3 10*3/uL (4.8-10.8)
[2016-08-11 15:50] LABS: PROTHROMBIN TIME 10.7 SECONDS (9.0-12.4)
[2016-08-11 15:57] LABS: ALBUMIN 3.1 gm/dl (3.1-4.5); ALKALINE PHOSPHATASE 88 U/L (45-117); BILIRUBIN, TOTAL 0.4 mg/dl (0.2-1.0); BUN 17 mg/dl (7-24); CARBON DIOXIDE 24 mmol/L (21-32); CHLORIDE 104 mmol/L (98-107); EST GLOM FILT AFRICAN AMERICAN > 60 ml/min; GLUCOSE 124 mg/dL (65-99); MAGNESIUM 1.7 mg/dL (1.5-2.1); POTASSIUM 4.7 mmol/L (3.5-5.1); SGOT/AST 21 IU/L (3-35); SODIUM 140 mmol/L (136-145); TOTAL PROTEIN 8.1 gm/dL (6.4-8.2)
[2016-08-11 16:01] LABS: SGPT/ALT 30 U/L (12-78)
[2016-08-11 16:03] LABS: TROPONIN I < 0.015 ng/ml (<0.045)
[2016-08-11 16:17] VITALS: BP 148/84
[2016-08-11 17:20] VITALS: BP 147/90
[2016-08-11] MEDS ORDERED: MULTI VITAMINS1 TAB PO (17:30)
[2016-08-11 18:43] LABS: CKMB 0.6 ng/ml (0.5-3.6)
[2016-08-11 20:00] VITALS: BP 105/47
[2016-08-12] VITALS: BP 153/81
[2016-08-12 00:34] LABS: CKMB 0.7 ng/ml (0.5-3.6)
[2016-08-12 06:15] LABS: CPK 56 U/L (39-308)
[2016-08-12 06:16] LABS: BASO # 0.1 10*3/uL (0.0-0.1); BASO % 0.5 % (0.0-1.0); CKMB < 0.5 ng/ml (0.5-3.6); EOS # 0.3 10*3/uL (0.0-0.4); EOS % 2.1 % (1.0-4.0); HEMATOCRIT 36.5 % (42.0-52.0); HEMOGLOBIN 11.9 g/dl (14.0-18.0); IG # 0.1 10*3/uL (0.0-0.1); LYMPH # 2.4 10*3/uL (1.3-4.4); LYMPH % 15.3 % (27.0-41.0); MEAN CELL VOLUME 84.9 fl (80.0-94.0); MEAN CORPUSCULAR HGB 27.7 pg (27.0-31.0); MEAN CORPUSCULAR HGB CONC 32.6 g/dl (33.0-37.0); MEAN PLATELET VOLUME 10.6 fl (9.6-12.3); MONO # 0.9 10*3/uL (0.1-1.0); MONO % 5.6 % (3.0-9.0); NEUT % 75.9 % (47.0-73.0); PLATELET COUNT AUTOMATED 227 10*3/uL (130-400); WHITE BLOOD COUNT 15.8 10*3/uL (4.8-10.8)
[2016-08-12 06:29] LABS: ALBUMIN 2.9 gm/dl (3.1-4.5); BILIRUBIN, TOTAL 0.5 mg/dl (0.2-1.0); BUN 14 mg/dl (7-24); CARBON DIOXIDE 23 mmol/L (21-32); CHLORIDE 105 mmol/L (98-107); CHOLESTEROL 136 mg/dL (<200); EST GLOM FILT AFRICAN AMERICAN > 60 ml/min; GLUCOSE 104 mg/dL (65-99); MAGNESIUM 1.9 mg/dL (1.5-2.1); PHOSPHOROUS 3.6 mg/dL (2.5-4.9); POTASSIUM 4.2 mmol/L (3.5-5.1); SGOT/AST 18 IU/L (3-35); SGPT/ALT 28 U/L (12-78); SODIUM 138 mmol/L (136-145); TOTAL PROTEIN 7.6 gm/dL (6.4-8.2); TRIGLYCERIDES 120 mg/dl (<150); VLDL CHOLESTEROL 24 mg/dL (6-40)
[2016-08-12 06:36] LABS: ALKALINE PHOSPHATASE 80 U/L (45-117); HDL CHOLESTEROL 34 mg/dl (40-60); LDL CHOLESTEROL 78 mg/dL (9-159); THYROID STIM HORMONE (HS) 0.149 uIU/ml (0.358-4.75)
[2016-08-12 07:15] LABS: HEMOGLOBIN A1c 6.2 % (4.8-5.6)
[2016-08-12 08:00] VITALS: BP 121/70
[2016-08-12 12:00] VITALS: BP 130/85
== END 2016-08-12 16:30 | disposition home or self-care (01) | DRG 313 ==
LOC: ED 15:14 → EDHOLD 16:37 → 4E 16:37
PROVIDERS: Emergency Medicine; Hospitalist
DX: R07.89 Other chest pain (principal); I11.0 Hypertensive heart disease with heart failure; I50.32 Chronic diastolic (congestive) heart failure; E44.1 Mild protein-calorie malnutrition; Z68.42 Body mass index [BMI] 45.0-49.9, adult; E11.65 Type 2 diabetes mellitus with hyperglycemia; E66.01 Morbid (severe) obesity due to excess calories; M19.90 Unspecified osteoarthritis, unspecified site; E78.2 Mixed hyperlipidemia; E55.9 Vitamin D deficiency, unspecified; E53.8 Deficiency of other specified B group vitamins; J43.9 Emphysema, unspecified; E78.00 Pure hypercholesterolemia, unspecified; E89.0 Postprocedural hypothyroidism; D64.9 Anemia, unspecified; F31.9 Bipolar disorder, unspecified; Z86.73 Personal history of transient ischemic attack (TIA), and cerebral infarction without residual deficits; Z87.891 Personal history of nicotine dependence; Z82.49 Family history of ischemic heart disease and other diseases of the circulatory system; Z83.3 Family history of diabetes mellitus; Z79.899 Other long term (current) drug therapy

== ENCOUNTER 2016-08-17 16:03 | Inpatient (IN) | payer MEDICARE, MEDICAID ==
[~2016-08-17] VITALS: Ht 187.9 cm; Wt 166.9 kg
[~2016-08-17 16:03] MED LIST changes: +MULTI VITAMINS1 TAB PO
[2016-08-17 16:11] VITALS: BP 150/82
[2016-08-17 16:49] LABS: BASO # 0.1 10*3/uL (0.0-0.1); BASO % 0.5 % (0.0-1.0); EOS # 0.2 10*3/uL (0.0-0.4); EOS % 1.2 % (1.0-4.0); HEMOGLOBIN 12.4 g/dl (14.0-18.0); IG # 0.1 10*3/uL (0.0-0.1); LYMPH # 1.8 10*3/uL (1.3-4.4); LYMPH % 10.8 % (27.0-41.0); MEAN CELL VOLUME 84.4 fl (80.0-94.0); MEAN CORPUSCULAR HGB 27.6 pg (27.0-31.0); MEAN CORPUSCULAR HGB CONC 32.6 g/dl (33.0-37.0); MEAN PLATELET VOLUME 10.9 fl (9.6-12.3); MONO # 1.1 10*3/uL (0.1-1.0); MONO % 6.5 % (3.0-9.0); NEUT # 13.6 10*3/uL (2.3-7.9); NEUT % 80.3 % (47.0-73.0); PLATELET COUNT AUTOMATED 259 10*3/uL (130-400); WHITE BLOOD COUNT 16.9 10*3/uL (4.8-10.8)
[2016-08-17 17:07] LABS: ALKALINE PHOSPHATASE 90 U/L (45-117); BILIRUBIN, TOTAL 0.3 mg/dl (0.2-1.0); BUN 23 mg/dl (7-24); CARBON DIOXIDE 22 mmol/L (21-32); CHLORIDE 104 mmol/L (98-107); EST GLOM FILT AFRICAN AMERICAN > 60 ml/min; GLUCOSE 137 mg/dL (65-99); POTASSIUM 4.3 mmol/L (3.5-5.1); SGOT/AST 21 IU/L (3-35); SGPT/ALT 30 U/L (12-78); SODIUM 137 mmol/L (136-145); TOTAL PROTEIN 8.1 gm/dL (6.4-8.2)
[2016-08-17 17:15] LABS: THYROID STIM HORMONE (HS) 0.885 uIU/ml (0.358-4.75)
[2016-08-17 19:19] LABS: BILIRUBIN NEGATIVE (NEGATIVE); BLOOD NEGATIVE (NEGATIVE); CLARITY CLEAR (CLEAR); COLOR YELLOW (YELLOW); GLUCOSE NEGATIVE (NEGATIVE); KETONE TRACE (NEGATIVE); LEUKO ESTERASE NEGATIVE (NEGATIVE); NITRITE NEGATIVE (NEGATIVE); PH 5.5 (5.0-9.0); PROTEIN NEGATIVE (NEGATIVE); SPECIFIC GRAVITY 1.015 (1.005-1.030); UROBILINOGEN 0.2 E.U./dl (0.2-1.0)
[2016-08-17 19:28] LABS: URINE AMPHETAMINES < 1000 (1000ng/ml); URINE BARBITURATES < 200 (200ng/ml); URINE COCAINE < 300 (300ng/ml)
[2016-08-17 19:36] LABS: RBC 0-2 rbc/hpf (0-2); URINE REFLEX COMMENT NO (NO); WBC 0-2 wbc/hpf (0-5)
[2016-08-17 19:55] VITALS: BP 141/86
[2016-08-17 21:00] VITALS: BP 157/70
[2016-08-18] VITALS: BP 141/75
[2016-08-18 04:00] VITALS: BP 97/43
[2016-08-18 05:55] LABS: BASO # 0.1 10*3/uL (0.0-0.1); BASO % 0.6 % (0.0-1.0); EOS # 0.3 10*3/uL (0.0-0.4); EOS % 1.9 % (1.0-4.0); HEMATOCRIT 34.9 % (42.0-52.0); HEMOGLOBIN 11.5 g/dl (14.0-18.0); IG # 0.1 10*3/uL (0.0-0.1); LYMPH # 2.3 10*3/uL (1.3-4.4); LYMPH % 16.8 % (27.0-41.0); MEAN CELL VOLUME 85.1 fl (80.0-94.0); MEAN PLATELET VOLUME 11.4 fl (9.6-12.3); MONO # 0.8 10*3/uL (0.1-1.0); MONO % 5.8 % (3.0-9.0); NEUT # 10.2 10*3/uL (2.3-7.9); NEUT % 74.4 % (47.0-73.0); PLATELET COUNT AUTOMATED 230 10*3/uL (130-400); WHITE BLOOD COUNT 13.7 10*3/uL (4.8-10.8)
[2016-08-18 08:00] VITALS: BP 110/60
== END 2016-08-18 10:51 | disposition home health service (06) | DRG 885 ==
LOC: ED 16:03 → ICCU 20:11 → EDHOLD 20:11 → ICCU 20:21
PROVIDERS: Internal Medicine; Physician Assistant
DX: F31.32 Bipolar disorder, current episode depressed, moderate (principal); R65.10 Systemic inflammatory response syndrome (SIRS) of non-infectious origin without acute organ dysfunction; I11.0 Hypertensive heart disease with heart failure; I50.32 Chronic diastolic (congestive) heart failure; E44.1 Mild protein-calorie malnutrition; E11.65 Type 2 diabetes mellitus with hyperglycemia; Z68.42 Body mass index [BMI] 45.0-49.9, adult; E66.01 Morbid (severe) obesity due to excess calories; D64.9 Anemia, unspecified; J44.9 Chronic obstructive pulmonary disease, unspecified; M19.90 Unspecified osteoarthritis, unspecified site; E55.9 Vitamin D deficiency, unspecified; E89.0 Postprocedural hypothyroidism; Z87.891 Personal history of nicotine dependence; Z82.49 Family history of ischemic heart disease and other diseases of the circulatory system; Z86.73 Personal history of transient ischemic attack (TIA), and cerebral infarction without residual deficits; Z79.899 Other long term (current) drug therapy

== ENCOUNTER 2016-08-18 08:47 | Inpatient (IN) | payer MEDICARE, MEDICAID ==
[~2016-08-18] VITALS: Ht 157.4 cm; Wt 166.6 kg
[2016-08-18 15:07] VITALS: BP 136/79
[2016-08-18 20:16] VITALS: BP 110/50
[2016-08-19 06:40] LABS: BASO # 0.1 10*3/uL (0.0-0.1); BASO % 0.6 % (0.0-1.0); EOS # 0.2 10*3/uL (0.0-0.4); EOS % 1.6 % (1.0-4.0); HEMATOCRIT 37.6 % (42.0-52.0); IG # 0.1 10*3/uL (0.0-0.1); LYMPH # 1.9 10*3/uL (1.3-4.4); LYMPH % 13.5 % (27.0-41.0); MEAN CELL VOLUME 84.9 fl (80.0-94.0); MEAN CORPUSCULAR HGB 27.1 pg (27.0-31.0); MEAN CORPUSCULAR HGB CONC 31.9 g/dl (33.0-37.0); MONO # 0.7 10*3/uL (0.1-1.0); NEUT # 11.1 10*3/uL (2.3-7.9); NEUT % 78.7 % (47.0-73.0); PLATELET COUNT AUTOMATED 225 10*3/uL (130-400); RED BLOOD COUNT 4.43 10*6/uL (4.50-5.90); RED CELL DISTRI WIDTH 14.9 % (0-14.5); WHITE BLOOD COUNT 14.1 10*3/uL (4.8-10.8)
[2016-08-19 06:57] LABS: ALBUMIN 2.9 gm/dl (3.1-4.5); ALKALINE PHOSPHATASE 74 U/L (45-117); BILIRUBIN, TOTAL 0.5 mg/dl (0.2-1.0); BUN 14 mg/dl (7-24); CARBON DIOXIDE 25 mmol/L (21-32); CHLORIDE 107 mmol/L (98-107); CHOLESTEROL 165 mg/dL (<200); EST GLOM FILT AFRICAN AMERICAN > 60 ml/min; GLUCOSE 98 mg/dL (65-99); HDL CHOLESTEROL 35 mg/dl (40-60); LDL CHOLESTEROL 103 mg/dL (9-159); POTASSIUM 4.3 mmol/L (3.5-5.1); SGOT/AST 19 IU/L (3-35); SGPT/ALT 30 U/L (12-78); SODIUM 140 mmol/L (136-145); TOTAL PROTEIN 7.6 gm/dL (6.4-8.2); TRIGLYCERIDES 133 mg/dl (<150); VLDL CHOLESTEROL 27 mg/dL (6-40)
[2016-08-19 07:34] VITALS: BP 137/74
[2016-08-19 07:42] LABS: FOLIC ACID 23.83 ng/mL (>5.38); VITAMIN D, 25-HYDROXY 35.2 ng/mL (30-100)
[2016-08-19 19:55] VITALS: BP 122/57
[2016-08-20 07:50] VITALS: BP 121/63
[2016-08-20 19:54] VITALS: BP 116/62
[2016-08-21 06:43] VITALS: BP 120/53
[2016-08-21 20:47] VITALS: BP 118/74
[2016-08-22 08:20] VITALS: BP 120/64
[2016-08-22 20:00] VITALS: BP 120/68
[2016-08-23 08:25] VITALS: BP 115/62
[2016-08-23 20:00] VITALS: BP 128/75
[2016-08-24 08:01] VITALS: BP 128/74
[2016-08-24 19:59] VITALS: BP 125/79
[2016-08-25 07:49] VITALS: BP 133/78
[2016-08-25 19:58] VITALS: BP 137/70
[2016-08-26 06:38] LABS: BASO # 0.1 10*3/uL (0.0-0.1); BASO % 0.5 % (0.0-1.0); EOS # 0.3 10*3/uL (0.0-0.4); EOS % 1.8 % (1.0-4.0); HEMATOCRIT 36.8 % (42.0-52.0); HEMOGLOBIN 11.8 g/dl (14.0-18.0); IG # 0.1 10*3/uL (0.0-0.1); LYMPH # 2.5 10*3/uL (1.3-4.4); LYMPH % 17.1 % (27.0-41.0); MEAN CELL VOLUME 85.6 fl (80.0-94.0); MEAN CORPUSCULAR HGB 27.4 pg (27.0-31.0); MEAN CORPUSCULAR HGB CONC 32.1 g/dl (33.0-37.0); MEAN PLATELET VOLUME 11.3 fl (9.6-12.3); MONO # 0.9 10*3/uL (0.1-1.0); MONO % 6.2 % (3.0-9.0); NEUT # 10.9 10*3/uL (2.3-7.9); NEUT % 73.9 % (47.0-73.0); PLATELET COUNT AUTOMATED 238 10*3/uL (130-400); RED CELL DISTRI WIDTH 15.5 % (0-14.5); WHITE BLOOD COUNT 14.7 10*3/uL (4.8-10.8)
[2016-08-26 08:07] VITALS: BP 117/67
[2016-08-26 19:50] VITALS: BP 114/60
[2016-08-27 07:39] VITALS: BP 119/67
[2016-08-27 20:05] VITALS: BP 126/64
[2016-08-28 07:56] VITALS: BP 116/66
== END 2016-08-28 16:15 | DRG 885 ==
LOC: 3N 08:47
PROVIDERS: Internal Medicine; Psychiatry & Neurology Psychiatry
DX: F32.2 Major depressive disorder, single episode, severe without psychotic features (principal); I50.32 Chronic diastolic (congestive) heart failure; I11.0 Hypertensive heart disease with heart failure; R45.851 Suicidal ideations; Z68.44 Body mass index [BMI] 60.0-69.9, adult; M19.90 Unspecified osteoarthritis, unspecified site; E78.2 Mixed hyperlipidemia; E55.9 Vitamin D deficiency, unspecified; E66.01 Morbid (severe) obesity due to excess calories; E11.65 Type 2 diabetes mellitus with hyperglycemia; J44.9 Chronic obstructive pulmonary disease, unspecified; D72.829 Elevated white blood cell count, unspecified; D64.9 Anemia, unspecified; E53.8 Deficiency of other specified B group vitamins; Z87.891 Personal history of nicotine dependence; Z82.49 Family history of ischemic heart disease and other diseases of the circulatory system; Z86.73 Personal history of transient ischemic attack (TIA), and cerebral infarction without residual deficits; Z79.899 Other long term (current) drug therapy; H61.23 Impacted cerumen, bilateral; E03.9 Hypothyroidism, unspecified

== ENCOUNTER 2017-01-25 16:08 | Inpatient (IN) | payer MEDICARE, MEDICAID ==
[~2017-01-25] VITALS: Ht 190.5 cm; Wt 175.1 kg
--- NOTE | ~2017-01-25 | EKG ---
[place], [place] ELECTROCARDIOGRAM REPORT NAME: ISMAEL TOBIN UNIT #: [id number] ROOM: [facility] DOCTOR: KATHY BARRERA,FLORI BIRTHDATE: [birth year] DOS: 01/25/2017 TIME: 1605 hours. IMPRESSION: 1. Sinus rhythm. 2. Short MT interval. 3. Low voltage complexes. 4. Baseline artifacts. FLORI CHAVEZ MD CM:EKGRPT:ELECTROCARDIOGRAM REPORT [id number] FLORI CHAVEZ MD
--- NOTE | ~2017-01-25 | ST ---
[place], [place] EXERCISE STRESS TEST REPORT [id number] #: [id number] ROOM: 401 DOCTOR: KATHY BARRERA,FLORI BIRTHDATE: [birth year] DOS: 01/26/2017 REASON FOR TEST: Chest pain. TEST: Lexiscan stress test. PHYSICAL EXAMINATION NECK: Supple. LUNGS: Clear anteriorly. HEART: Regular rhythm. PROTOCOL: Lexiscan protocol. Maximum heart rate 80. Peak blood pressure 126/74. SYMPTOMS: The patient is chest pain free. EKG: Resting EKG showed sinus rhythm. Stress EKG showed no ischemia, no arrhythmias. CONCLUSION: Clinically, the patient is chest pain free. EKG nonischemic. POST-STRESS COMPLICATIONS: None. The patient received a total of 0.4 mg Lexiscan. FLORI CHAVEZ MD CM:STRESS:EXERCISE STRESS TEST REPORT [id number] FLORI CHAVEZ MD
[2017-01-25 16:10] VITALS: BP 160/89
[2017-01-25 16:30] LABS: BASO # 0.1 10*3/uL (0.0-0.1); BASO % 0.6 % (0.0-1.0); EOS # 0.3 10*3/uL (0.0-0.4); EOS % 2.2 % (1.0-4.0); HEMATOCRIT 40.2 % (42.0-52.0); HEMOGLOBIN 12.7 g/dl (14.0-18.0); LYMPH # 1.6 10*3/uL (1.3-4.4); LYMPH % 13.1 % (27.0-41.0); MEAN CELL VOLUME 86.5 fl (80.0-94.0); MEAN CORPUSCULAR HGB 27.3 pg (27.0-31.0); MEAN CORPUSCULAR HGB CONC 31.6 g/dl (33.0-37.0); MEAN PLATELET VOLUME 11.1 fl (9.6-12.3); MONO # 0.6 10*3/uL (0.1-1.0); NEUT # 9.8 10*3/uL (2.3-7.9); NEUT % 78.5 % (47.0-73.0); PLATELET COUNT AUTOMATED 216 10*3/uL (130-400); RED BLOOD COUNT 4.65 10*6/uL (4.50-5.90); RED CELL DISTRI WIDTH 16.6 % (0-14.5); WHITE BLOOD COUNT 12.5 10*3/uL (4.8-10.8)
[2017-01-25 16:44] LABS: ACT PARTIAL THROMBO TIME 24.2 SECONDS (20.8-31.5)
[2017-01-25 16:45] LABS: ALBUMIN 3.1 gm/dl (3.1-4.5); ALKALINE PHOSPHATASE 111 U/L (45-117); BUN 14 mg/dl (7-24); CHLORIDE 103 mmol/L (98-107); CREATININE 1.27 mg/dL (0.70-1.30); LIPASE 352 U/L (73-393); POTASSIUM 4.7 mmol/L (3.5-5.1); SGOT/AST 20 IU/L (3-35); SGPT/ALT 30 U/L (12-78); SODIUM 138 mmol/L (136-145); TOTAL PROTEIN 8.1 gm/dL (6.4-8.2); TROPONIN I < 0.015 ng/ml (<0.045)
[2017-01-25 17:41] VITALS: BP 147/83
[2017-01-25 18:14] VITALS: BP 145/88
[2017-01-25 18:55] VITALS: BP 166/95
--- NOTE | 2017-01-25 19:02 | NUR ---
[facility] , under the services of SERAFIN Beck DO with a diagnosis of CHEST PAIN. Chief complaint is CHEST PAIN. Patient arrived via bed from ER. Monitor applied. Initial assessment completed. Vital signs taken and recorded. SERAFIN BECK DO notified of admission to the unit. Orders received. See assessment for past medical history, medications and allergies. Patient and/or family oriented to unit. [facility] visitation policy reviewed. Clothing/patient valuable form completed. DONNA LOPES
--- NOTE | 2017-01-25 19:10 | NUR ---
DR. WALKER NOTIFIED THAT PT MED REC UPDATED TO BEST ABILITY PER PT. PT IS ALERT AND ORIENTED X3.
[2017-01-25 20:00] VITALS: BP 166/95
--- NOTE | 2017-01-25 20:48 | NUR ---
DR. GORE NOTIFIED OF PT NEED FOR PAIN MED AND REQUESTING DIET ORDER. PUT PUT ORDERS IN.
--- NOTE | 2017-01-25 22:45 | NUR ---
PT STATES THAT CHEST PAIN IS 3/10 OF NOW. BP 186/99 MANUALLY.
[2017-01-25 22:47] VITALS: BP 186/99
--- NOTE | 2017-01-25 23:04 | NUR ---
DR. GORE NOTIFIED OF ELEVATED BP. DR. COBIAN REVIEW MEDS.
[2017-01-26] VITALS: BP 143/84
--- NOTE | 2017-01-26 04:42 | NUR ---
24 HR chart check completed.
[2017-01-26 06:45] LABS: BASO # 0.1 10*3/uL (0.0-0.1); BASO % 0.6 % (0.0-1.0); EOS # 0.4 10*3/uL (0.0-0.4); HEMOGLOBIN 12.4 g/dl (14.0-18.0); LYMPH # 2.2 10*3/uL (1.3-4.4); LYMPH % 17.9 % (27.0-41.0); MEAN CELL VOLUME 85.9 fl (80.0-94.0); MEAN CORPUSCULAR HGB 27.3 pg (27.0-31.0); MEAN CORPUSCULAR HGB CONC 31.8 g/dl (33.0-37.0); MEAN PLATELET VOLUME 11.2 fl (9.6-12.3); MONO # 0.8 10*3/uL (0.1-1.0); MONO % 6.4 % (3.0-9.0); NEUT # 8.7 10*3/uL (2.3-7.9); NEUT % 71.4 % (47.0-73.0); PLATELET COUNT AUTOMATED 187 10*3/uL (130-400); RED BLOOD COUNT 4.54 10*6/uL (4.50-5.90); RED CELL DISTRI WIDTH 16.3 % (0-14.5); WHITE BLOOD COUNT 12.2 10*3/uL (4.8-10.8)
[2017-01-26 07:01] LABS: ALBUMIN 2.8 gm/dl (3.1-4.5); ALKALINE PHOSPHATASE 83 U/L (45-117); BUN 13 mg/dl (7-24); CHLORIDE 105 mmol/L (98-107); CHOLESTEROL 160 mg/dL (<200); CREATININE 1.09 mg/dL (0.70-1.30); FREE T4 0.59 ng/dl (0.76-1.46); HDL CHOLESTEROL 35 mg/dl (40-60); LDL CHOLESTEROL 91 mg/dL (9-159); POTASSIUM 3.9 mmol/L (3.5-5.1); SGOT/AST 16 IU/L (3-35); SGPT/ALT 27 U/L (12-78); SODIUM 141 mmol/L (136-145); TOTAL PROTEIN 7.2 gm/dL (6.4-8.2); TRIGLYCERIDES 172 mg/dl (<150); VLDL CHOLESTEROL 34 mg/dL (6-40)
[2017-01-26 08:00] VITALS: BP 140/82
--- NOTE | 2017-01-26 08:30 | NUR ---
[employer] Tester in to talk to patient. Patient states lives at HOME ALONE with . There are 0 steps in the home. Physician: DR CHERRY Pharmacy: [facility] Home health services: HAS PASSPORT SERVICES THRU [facility] 3X WEEK Patient's level of ADLs: MINIMAL ASSIST Patient has working utilities: YES DME: O2 AT NIGHT-DOES NOT KNOW WHO PROVIDES IT Follow-up physician's appointment after d/c: WILL BE MADE PRIOR TO DC Does patient want to access PORTAL?: Discharge plan HOME. REGLA MERCER
--- NOTE | 2017-01-26 09:53 | NUR ---
PT VIPUL FOR STRESS TEST
--- NOTE | 2017-01-26 10:15 | NUR ---
INFORMED CONSENT OBTAINED FOR LEXISCAN NUCLEAR STRESS TEST WITH DR. CHAVEZ. RESTING EKG NSR WITH A RESTING HR OF 71 WITH BP OF 126/74. LUNGS WITH DIMINISHED BS WITH SPO2 OF 94% ON ROOM AIR. PT COMPLETED A 1:00 LEXISCAN PROTOCOL RECEIVING LEXISCAN 0.4 MG IV OVER 10 SECONDS. HAD NO CHEST PAIN OR ANY EKG CHANGES. DID C/O FEELING OF SHORTNESS OF BREATH THAT WAS RELIEVED IN RECOVERY. HAD A PEAK HR OF 78 WITH BP OF 114/68. LAST RECOVERY HR OF 75 WITH BP OF 114/68. AWAITING SCANNING IN STABLE CONDITION.
[2017-01-26 12:00] VITALS: BP 136/81; BP 140/82
--- NOTE | 2017-01-26 12:28 | NUR ---
PT GIVEN PRN PO NORCO FOR COMPLAINTS OF PAIN. WILL MONITOR EFFECTIVENESS.
--- NOTE | 2017-01-26 14:40 | NUR ---
PT OFFERED AND REFUSED FLU VACCINE PER PT HE WILL RECIEVE WITH HE FOLLOW UPS WITH PCP IN 1 WEEK
--- NOTE | 2017-01-26 14:48 | NUR ---
Discharge instructions reviewed with patient/family. Patient receptive and verbalizes understanding. Follow-up care arranged. Written instructions given to patient/family. CATRACHO GANNON
== END 2017-01-26 14:48 | disposition home or self-care (01) | DRG 206 ==
LOC: ED 16:08 → 4E 18:31 → EDHOLD 18:31 → 4E 18:34
PROVIDERS: Emergency Medicine; Family Medicine; ADMIT Internal Medicine
PROC: 4A02XM4 Measurement of Cardiac Total Activity, External Approach (ICD-10-PCS; principal; 2017-01-26)
PROC: 3E073KZ Introduction of Other Diagnostic Substance into Coronary Artery, Percutaneous Approach (ICD-10-PCS; principal; 2017-01-26)
DX: M94.0 Chondrocostal junction syndrome [Tietze] (principal); I11.0 Hypertensive heart disease with heart failure; E44.0 Moderate protein-calorie malnutrition; E11.65 Type 2 diabetes mellitus with hyperglycemia; E66.01 Morbid (severe) obesity due to excess calories; I50.32 Chronic diastolic (congestive) heart failure; Z68.43 Body mass index [BMI] 50.0-59.9, adult; J43.9 Emphysema, unspecified; D64.9 Anemia, unspecified; F32.9 Major depressive disorder, single episode, unspecified; E78.2 Mixed hyperlipidemia; M19.90 Unspecified osteoarthritis, unspecified site; E89.0 Postprocedural hypothyroidism; E55.9 Vitamin D deficiency, unspecified; Z87.891 Personal history of nicotine dependence; Z82.49 Family history of ischemic heart disease and other diseases of the circulatory system; Z87.820 Personal history of traumatic brain injury; Z83.3 Family history of diabetes mellitus; Z79.899 Other long term (current) drug therapy; Z79.84 Long term (current) use of oral hypoglycemic drugs

== ENCOUNTER 2017-03-03 14:34 | Emergency (ER) | payer MEDICARE, MEDICAID ==
[~2017-03-03] VITALS: Ht 190.5 cm; Wt 172.4 kg
[2017-03-03 15:07] LABS: BASO # 0.1 10*3/uL (0.0-0.1); BASO % 0.6 % (0.0-1.0); EOS # 0.2 10*3/uL (0.0-0.4); EOS % 1.7 % (1.0-4.0); HEMATOCRIT 42.6 % (42.0-52.0); HEMOGLOBIN 13.8 g/dl (14.0-18.0); LYMPH % 14.1 % (27.0-41.0); MEAN CELL VOLUME 84.4 fl (80.0-94.0); MEAN CORPUSCULAR HGB 27.3 pg (27.0-31.0); MEAN CORPUSCULAR HGB CONC 32.4 g/dl (33.0-37.0); MEAN PLATELET VOLUME 10.6 fl (9.6-12.3); MONO # 0.7 10*3/uL (0.1-1.0); NEUT # 10.8 10*3/uL (2.3-7.9); PLATELET COUNT AUTOMATED 240 10*3/uL (130-400); RED BLOOD COUNT 5.05 10*6/uL (4.50-5.90); RED CELL DISTRI WIDTH 15.8 % (0-14.5); WHITE BLOOD COUNT 13.9 10*3/uL (4.8-10.8)
[2017-03-03] MEDS ORDERED: VRAYLAR6 MG PO (15:09)
[2017-03-03] MEDS ORDERED: REMERON30 M1 PO (15:10)
[2017-03-03] MEDS ORDERED: VITAMIN D50000 UNIT PO (15:10)
[2017-03-03] MEDS ORDERED: WELLBUTRIN XL300 MG PO (15:10)
[2017-03-03] MEDS ORDERED: SYNTHROID300 MCG PO (15:13)
[2017-03-03] MEDS ORDERED: FEOSOL325 MG PO (15:21)
[2017-03-03 15:22] LABS: ACETAMINOPHEN (TYLENOL) < 2.0 ug/ml (10-30); ALBUMIN 3.4 gm/dl (3.1-4.5); ALKALINE PHOSPHATASE 97 U/L (45-117); BUN 18 mg/dl (7-24); CHLORIDE 104 mmol/L (98-107); CREATININE 1.25 mg/dL (0.70-1.30); ETHYL ALCOHOL < 3.0 mg/dl (<3); POTASSIUM 4.3 mmol/L (3.5-5.1); SGOT/AST 20 IU/L (3-35); SGPT/ALT 29 U/L (12-78); SODIUM 137 mmol/L (136-145); TOTAL PROTEIN 8.5 gm/dL (6.4-8.2)
[2017-03-03] MEDS ORDERED: PRAVACHOL20 MG PO (15:22)
[2017-03-03 15:43] LABS: BILIRUBIN NEGATIVE (NEGATIVE); BLOOD NEGATIVE (NEGATIVE); CLARITY CLEAR (CLEAR); COLOR YELLOW (YELLOW); GLUCOSE NEGATIVE (NEGATIVE); KETONE NEGATIVE (NEGATIVE); LEUKO ESTERASE NEGATIVE (NEGATIVE); NITRITE NEGATIVE (NEGATIVE); PH 5.5 (5.0-9.0); UROBILINOGEN 0.2 E.U./dl (0.2-1.0)
[2017-03-03 15:50] LABS: BACTERIA 2+; EPITHELIAL CELLS 0-2; RBC 0-2 rbc/hpf (0-2); URINE AMPHETAMINES < 1000 (1000ng/ml); URINE BARBITURATES < 200 (200ng/ml); URINE BENZODIAZEPINES < 200 (200ng/ml); URINE CANNABINOIDS (THC) < 50 (50ng/ml); URINE COCAINE < 300 (300ng/ml); URINE METHADONE < 300 (300ng/ml); URINE OPIATES < 300 (300ng/ml)
[2017-03-03 15:51] LABS: URINE PHENCYCLIDINE < 25 (25ng/ml)
== END 2017-03-03 15:30 | disposition home health service (06) ==
LOC: ED 14:34
PROVIDERS: Physician Assistant
DX: R45.851 Suicidal ideations (principal); Z79.899 Other long term (current) drug therapy

== ENCOUNTER 2017-03-03 15:05 | Inpatient (IN) | payer MEDICARE, MEDICAID ==
[~2017-03-03] VITALS: Ht 190.5 cm; Wt 172.4 kg
--- NOTE | ~2017-03-03 | PR ---
[place], [place] PROGRESS NOTE NAME: ISMAEL TOBIN UNIT #: [id number] ROOM: 312 DOCTOR: SUE WEBB MD BIRTHDATE: [birth year] DOS: 03/08/2017 CHIEF COMPLAINT: "I am still depressed and still suicidal Dr. Webb, "I don't know what I am going to do." SUMMARY OF THE VISIT: The patient was interviewed as he sat eating his breakfast in the dining area. He stopped and engaged in conversation. He remains very flat and blunted and very forewarned. He continues to report ongoing depression and ongoing suicidal thoughts, stating that he does not think life is ever going to be worth living again. He convincingly denies medication side effects and is willing to allow me to adjust his medicines further. MENTAL STATUS: He is alert and oriented with time gaps, but are not significant. Mood does seem to be overwhelmingly depressed. Affect is flat, blunted and very constricted. He endorses suicidal thoughts. There are no homicidal thoughts. There is no valentin or hypomania. I see no delusions or paranoia. Short-term memory has very mild gaps, but overall he is intact. PLAN: I will maintain his Wellbutrin at 450 mg a day, but increase his Remeron from 15 to 30 mg a day, continue to engage in individual and jara milieu activity, returning home or the least restrictive environment when psychiatrically stable. SUE WEBB MD CM:PNTRANS 0 7 SUE WEBB MD 03/08/1738 interface
--- NOTE | ~2017-03-03 | WRIGHTHP ---
[place], [place] PATIENT HISTORY AND PHYSICAL EXAM NAME: [id number] UNIT #: [id number] ROOM: 312 DOCTOR: SUE WEBB MD BIRTHDATE: [birth year] DOS: 03/04/2017 INITIAL PSYCHIATRIC EVALUATION CHIEF COMPLAINT: "Oh Dr. Webb, I have just been so depressed." HISTORY OF PRESENT ILLNESS: This is a 61-year-old white male known to me from multiple psychiatric admissions to the [facility] as well as my outpatient practice in [place], [place]. The patient had presented to the office to see his nurse practitioner and in the course of conversation had mentioned to her that he has noticed his depression has intensified over the last week or 2 prior to this admission. Additionally, he endorsed positive suicidal thoughts with a plan to overdose on his medication. The patient has had suicide attempts in the past and has had multiple psychiatric admissions due to his level of depression. He endorsed poor sleep and appetite, energy, anhedonia, hopeless, helpless feelings, crying spells and inability to cope. Of note, the patient does endorse a seasonal component to his depression, where he notices that wintertime is very difficult for him. He is admitted now to rule out organic factors, to stabilize on medication, to engage in individual and jara milieu activity with the ultimate plan to return to the least restrictive environment when psychiatrically stable. PAST MEDICAL HISTORY: Remarkable for a lengthy history of depression as well as congestive heart failure, COPD, folic acid deficiency, CVA, hypothyroidism, iron deficiency anemia, hyperlipidemia, morbid obesity, osteoarthritis, diabetes and vitamin D deficiency. MENTAL STATUS: The patient is alert and oriented. Mood is overwhelmingly depressed. Affect is flat and blunted with a constricted range. He endorses multiple neurovegetative symptoms. He also endorses positive suicidal thoughts with a plan. There is no hypomania or valentin. There are no overt auditory or visual hallucinations noted at this time. Memory for the most part is intact. DIAGNOSES: Major depression, recurrent, severe; dysthymic disorder. PLAN: I will maintain his current psychotropic regimen. At this point, we will explore the possibility of obtaining a light box for light therapy to see if this will help with the seasonal component, may look to adjust his medicines accordingly. We will also look to see if a GeneSight test has been performed in his outpatient setting. If not, would like to perform a GeneSight test now to determine what medicine if any would be most beneficial for him. We will engage in individual and jara milieu activity, returning home or the least restrictive environment when stable. [place], [place] PATIENT HISTORY AND PHYSICAL EXAM NAME: ISMAEL TOBIN UNIT #: [id number] ROOM: [facility] DOCTOR: SUE WEBB MD BIRTHDATE: [birth year] SUE WEBB MD CM:HISPHYS:PATIENT HISTORY AND PHYSICAL EXAMINATION 4 9 SUE WEBB MD 03/04/17949 interface
--- NOTE | ~2017-03-03 | PR ---
[place], [place] PROGRESS NOTE NAME: ISMAEL TOBIN UNIT #: [id number] ROOM: 315 DOCTOR: SUE GANNON MD BIRTHDATE: [birth year] DOS: 03/11/2017 CHIEF COMPLAINT: "I didn't sleep last night and this time, it wasn't because of my roommate." SUMMARY OF THE VISIT: The patient was interviewed as he sat alone, eating breakfast. He seemed rather forlorn and depressed. His body habitus was such that he was slouched over. He did engage in conversation and continues to report extreme depression. He is very, very sad and despondent. He reports he did not sleep well last night and that he had difficulty falling asleep, maintaining sleep and awakening early. This is because he feels depressed and his thoughts are racing in his head rather than any environmental issue. He convincingly denies medication side effects and states that he has been fine with the rapid titration of the Fetzima. MENTAL STATUS: He is alert and oriented. Mood is overwhelmingly depressed. Affect is flat, blunted, and constricted. There is no valentin or hypomania. There are no overt auditory or visual hallucinations. No delusions, no paranoia. Memory for the most part is intact. PLAN: I will go ahead and continue to increase the Fetzima from 80 to 120 mg at bedtime augmenting this with Wellbutrin-XL 450 mg a day and the Vraylar 6 mg at bedtime, engage in individual and jara milieu activity with the ultimate plan to return home when psychiatrically stable. SUE GANNON MD CM:PNTRANS 0837 SUE GANNON MD 03/11/17 0836 interface
--- NOTE | ~2017-03-03 | PR ---
[place], [place] PROGRESS NOTE [facility]: [id number] UN[facility] #: [id number] ROOM: 312 DOCTOR: Светлана PENG,WILLIAM BIRTHDATE: [birth year] DOS: 03/06/2017 PSYCHIATRIC PROGRESS NOTE SUBJECTIVE: The patient seen and spoke with the staff. Per staff, the patient is still depressed and had fleeting suicidal ideation. He is compliant with his medication. No behavioral problems or issues. The patient was pleasant and cooperative. He reports doing better, but still acknowledges being depressed. He also talked about fleeting suicidal ideation, but denied any intent or plan. He said that meds are helping him and reports good sleep. MENTAL STATUS EXAMINATION: The patient was pleasant and cooperative, described his mood as "okay." Affect was flat, constricted thought. He denied auditory or visual hallucination. He is still delusional and paranoid; still has fleeting suicidal ideation, but no intent or plan. ASSESSMENT: Major depressive disorder, recurrent, severe without psychotic features, still depressed and suicidal. PLAN: 1. Continue current medications and care. 2. Supportive care. 3. Encourage activity and groups. WILLIAM PENG MD CM:RED 02 8 Светлана PENG 03/07/17 0259 interface
--- NOTE | ~2017-03-03 | PR ---
[place], [place] PROGRESS NOTE NAME: ISMAEL TOBIN UNIT #: [id number] ROOM: 315 DOCTOR: SUE WEBB MD BIRTHDATE: [birth year] DOS: 03/13/2017 CHIEF COMPLAINT: "I slept a little better, but I still feel depressed Dr. Webb." SUMMARY OF THE VISIT: The patient was interviewed in the dining area where he sat at the edge of his table eating his breakfast. He continues to look depressed and forlorn. His body habitus is such that he is sitting there with slouched shoulders. He engages in conversation, but is very flat and blunted, very anergic. He did note no issue with me lowering the Vraylar and I explained to him the rationale for that and he nodded in approval. MENTAL STATUS: He is alert and oriented. Mood is overwhelmingly depressed. Affect is flat and blunted. He endorses multiple neurovegetative symptoms. There is no valentin or hypomania. There are no auditory or visual hallucinations. No delusions, no paranoia. Memory is intact. PLAN: I will go ahead and do a brief trial on Ritalin 5 mg at 10:00 a.m. and 2 p.m. to see if this will give him some energy and focus. We will continue his other psychotropics and engage in individual and jara milieu activity with the plan to return home or the least restrictive environment when psychiatrically stable. SUE WEBB MD CM:PNTRANS [id number] SUE WEBB MD 03/13/17 1453 interface
--- NOTE | ~2017-03-03 | PR ---
[place], [place] PROGRESS NOTE NAME: ISMAEL TOBIN UNIT #: [id number] ROOM: 315 DOCTOR: SUE WEBB MD BIRTHDATE: [birth year] DOS: 03/15/2017 CHIEF COMPLAINT: "Ritalin has made a difference Dr. Webb, I am starting to feel better." SUMMARY OF THE VISIT: The patient was interviewed in the dining area. He brightened as I approached and was much more interactive than he had been during the early part of his stay. He does note a positive note that the Ritalin has made a difference. He feels more energized, more interactive and less depressed. He also feels that the lowering of the Vraylar made a difference as well. He is sleeping well despite the addition of the Ritalin and notes no side effects from it. He convincingly denies chest pain, rapid heartbeat, change in appetite or change in sleep. MENTAL STATUS: He is alert and oriented. Mood does seem to be finally trending towards euthymia. Affect is much more appropriate. There is no symptom suggestive of hypomania or valentin. There are no overt auditory or visual hallucinations. No delusions, no paranoia. For the most part, memory is fully intact. PLAN: I will increase the Ritalin to 10 mg q. 8000 hours and 1400 hours. Continue to engage in individual and jara milieu activity with the plan to return home when psychiatrically stable. SUE WEBB MD CM:PNTRANS [id number] SUE WEBB MD 03/15/17 0951 interface
--- NOTE | ~2017-03-03 | PR ---
[place], [place] PROGRESS NOTE NAME: ISMAEL TOBIN UNIT #: [id number] ROOM: 315 DOCTOR: SUE GANNON MD BIRTHDATE: [birth year] DOS: 03/14/2017 CHIEF COMPLAINT: "That new medicine helped again." SUMMARY OF THE VISIT: The patient was interviewed in the dining area where he sat and was much more animated and engaging in conversation. Nurses report 180 degree difference with me starting the Ritalin yesterday that he was much more attentive, much more engaging and had much more to offer with participation in groups and other activities. They noted no side effects and he did seem to sleep well despite the addition of the Ritalin. MENTAL STATUS: He is alert and oriented. Mood does seem to be trending towards euthymia. Affect is more appropriate. There are no symptoms of valentin or hypomania. There are no overt auditory or visual hallucinations. No delusions, no paranoia. Short, intermediate, and long-term memory are intact. PLAN: I will maintain the current medication regimen for at least the next 24 hours to determine whether or not this is the accurate dose or if we need to adjust accordingly, engage in individual and jara milieu activity with the plan to return to the least restrictive environment when stable. SUE GANNON MD CM:PNTRANS [id number] [id number] SUE GANNON MD 03/15/17 0043 interface
--- NOTE | ~2017-03-03 | PR ---
[place], [place] PROGRESS NOTE NAME: ISMAEL TOBIN UNIT #: [id number] ROOM: 312 DOCTOR: Светлана PENG,WILLIAM BIRTHDATE: [birth year] DOS: 03/07/2017 SUBJECTIVE: The patient seen and spoke with the staff. Per staff the patient is doing well. Medication compliant. No behavioral problems or issues. No side effects from the medication. The patient was pleasant and cooperative. He was on his bed. He was sleeping. He got up when I called his name, he reports doing "all right". Still feels down at times. He also talked about fleeting suicidal ideation, but no intent or plan. He feels that the medication is helping him. MENTAL STATUS EXAMINATION: Pleasant, cooperative. He described his mood as "down." Affect, constricted. Thought process goal directed. No flight of ideas or loosening of association. He denied auditory or visual hallucination. No delusions or paranoia noted. He denied any homicidal ideation, but still have fleeting suicidal ideation, but no intent or plan. ASSESSMENT: Major depressive disorder, recurrent, severe without psychotic feature. PLAN: 1. Continue current medication and care. 2. Continue redirection. 3. Final medication management and discharge plan by the regular team. WILLIAM PENG MD CM:PNTRANS [phone] Светлана PENG 03/07/17 0169 interface
--- NOTE | ~2017-03-03 | DS ---
[place], [place] DISCHARGE SUMMARY [id number] #: [id number] ROOM: 315 DOCTOR: SUE GANNON MD BIRTHDATE: [birth year] DOS: 03/17/2017 CHIEF COMPLAINT: "Oh Dr. Gannon, I have just been so depressed." HISTORY OF PRESENT ILLNESS: This is a 61-year-old white male known to me from multiple psychiatric admissions here as well as my outpatient practice in [place], [place]. The patient had presented to the office to see his nurse practitioner and in the course of the conversation had mentioned to her that he had been feeling increasingly depressed to the point where in the last several days he has been thinking of suicide with a plan to overdose on his medicine. The patient reports multiple neurovegetative symptoms that include poor sleep and appetite, lack of energy, hopeless, helpless feelings, crying spells, inability to cope, and poor ADLs. He also endorses a seasonal component for the depression, stating that in the fall and winter, he does tend to get worse. He ultimately was admitted to rule out organic factors, to stabilize on medication, to engage in individual and jara milieu activity as well as further assessing lethality. PAST MEDICAL HISTORY: Remarkable for a rather lengthy history of depression as well as congestive heart failure, COPD, folic acid deficiency, CVA, hypothyroidism, iron deficiency anemia, hyperlipidemia, morbid obesity, osteoarthritis, diabetes, and vitamin D deficiency. SUMMARY OF HOSPITAL COURSE: The patient was admitted to the unit where he was maintained initially on his Wellbutrin and Remeron; however, after some time on this regimen without him spontaneously improving. The Remeron was discontinued in lieu of Fetzima. The Fetzima was started out at 40 mg a day and over the course of a week was gradually increased from 40 to 80 and then ultimately to its maximum dose of 120 mg. His dose of Wellbutrin-XL was increased from 300 to 450 to further increase the effectiveness of the drug. Both of these changes seemed to help only a little as his mood did seem to brighten somewhat, but overall, he continued to be very anergic, required a great deal of prompting to do his ADLs and interacted very minimally with staff and other residents. Ultimately towards the latter part of his stay, he was given Ritalin 5 mg in the morning. This was increased to 5 mg twice a day with an extreme improvement noted. Immediately staff noticed that his energy level improved. He was able to focus better. He engaged in therapy better. He was able to attend to his ADLs. He himself noticed a difference and became much more jovial and pleasant. He convincingly denied medication side effects. Eventually, the dose was increased to its maximum dose while in the hospital at 10 mg twice daily with again increased improvement. The patient had improved sufficiently with these medication changes to return home. He will follow up with Sabine Benson, his outpatient counselor and Yari Pinto, his nurse practitioner for medication management. MENTAL STATUS AT DISCHARGE: The patient was alert and oriented. Mood was strongly trending towards euthymia. Affect was much more appropriate. There was no symptom suggestive of valentin or hypomania. There were no overt auditory or visual hallucinations. No delusions were noted. No paranoia was present. Short, intermediate, and long-term memory were fully intact. [place], [place] DISCHARGE SUMMARY NAME: ISMAEL TOBIN UNIT #: [id number] ROOM: [facility] DOCTOR: SUE GANNON MD BIRTHDATE: [birth year] FINAL DIAGNOSES: Major depression, recurrent, severe, and dysthymic disorder. PLAN: All of his prescriptions except for the Ritalin have been E-scribed to [facility]. Ritalin prescription was printed and sent with him. He will have followup with both Sabine Benson and Yari Pinto as mentioned previously. SUE GANNON MD CM:CUBA [id number] SUE GANNON MD 03/17/17 1013 interface
--- NOTE | ~2017-03-03 | PR ---
[place], [place] PROGRESS NOTE NAME: ISMAEL TOBIN UNIT #: [id number] ROOM: 312 DOCTOR: SUE WEBB MD BIRTHDATE: [birth year] DOS: 03/09/2017 CHIEF COMPLAINT: "I am still so depressed Dr. Webb, I don't know what to do." SUMMARY OF THE VISIT: The patient was interviewed as he sat in the dining area. He continues to look forlorn and depressed and he endorses continued neurovegetative symptoms, especially poor sleep and lack of energy. He also endorses suicidal thoughts. He reports that the current medication regimen has been ineffective to date. MENTAL STATUS: He is alert and oriented. Mood does seem to be overwhelmingly depressed. He is very flat, blunted and constricted. He endorses multiple neurovegetative symptoms as well as suicidal thoughts. There is no hypomania or valentin. There are no overt auditory or visual hallucinations. No delusions, no paranoia. Short term memory may have mild gaps, but otherwise he is intact. PLAN: I will renew his Ativan p.r.n. in case he requires intervention. Given the fact that he has been on the Remeron for sometime and it has been ineffective and he continues to complain of sleep disturbance and all the other neurovegetative symptoms of depression, I will discontinue it and begin Fetzima 40 mg daily. I will utilize Rozerem as a nonaddicting sleep aid at 8 mg at bedtime. We will continue to have him engage in individual and jara milieu activity with the ultimate plan to return to home or the least restrictive environment when psychiatrically stable. SUE WEBB MD CM:PNTRANS [id number] SUE WEBB MD 03/09/17 1058 interface
--- NOTE | ~2017-03-03 | PR ---
[place], [place] PROGRESS NOTE NAME: ISMAEL TOBIN UNIT #: [id number] ROOM: 315 DOCTOR: SUE WEBB MD BIRTHDATE: [birth year] DOS: 03/16/2017 CHIEF COMPLAINT: "I think I am feeling better, Dr. Webb." SUMMARY OF THE VISIT: The patient was interviewed in the dining area. As I approached, he smiled, he was much more interactive and much more alert and engaging. He reports that the increase in the Ritalin did seem to make a difference and he convincingly denied any side effects. He noted no issues with chest pain, rapid heartbeat, feeling shaky and he did report sleeping well through the night once again. MENTAL STATUS: He is alert and oriented. Mood does seem to be finally trending towards euthymia. Affect is more appropriate. There are no symptoms of valentin or hypomania. There are no overt auditory or visual hallucinations. No delusions, no paranoia. Memory for the most part is intact. PLAN: I will renew his Rozerem p.r.n. at bedtime if he requires this for sleep, maintain his other psychotropics, continue to monitor and support with the plan to discharge back home when psychiatrically stable. SUE WEBB MD CM:PNTRANS 0844 [id number] SUE WEBB MD 03/16/17 0924 interface
[2017-03-03] MEDS ORDERED: VRAYLAR6 MG PO (15:09)
[2017-03-03] MEDS ORDERED: REMERON30 M1 PO (15:10)
[2017-03-03] MEDS ORDERED: VITAMIN D50000 UNIT PO (15:10)
[2017-03-03] MEDS ORDERED: WELLBUTRIN XL300 MG PO (15:10)
[2017-03-03] MEDS ORDERED: SYNTHROID300 MCG PO (15:13)
[2017-03-03] MEDS ORDERED: FEOSOL325 MG PO (15:21)
[2017-03-03] MEDS ORDERED: PRAVACHOL20 MG PO (15:22)
[2017-03-03 16:13] VITALS: BP 124/69
[2017-03-03 16:52] VITALS: BP 124/69
[2017-03-03 20:04] VITALS: BP 122/70
[2017-03-04 07:31] LABS: BASO # 0.1 10*3/uL (0.0-0.1); BASO % 0.8 % (0.0-1.0); EOS # 0.2 10*3/uL (0.0-0.4); EOS % 1.8 % (1.0-4.0); HEMATOCRIT 40.2 % (42.0-52.0); HEMOGLOBIN 12.9 g/dl (14.0-18.0); LYMPH % 15.1 % (27.0-41.0); MEAN CELL VOLUME 85.4 fl (80.0-94.0); MEAN CORPUSCULAR HGB 27.4 pg (27.0-31.0); MEAN CORPUSCULAR HGB CONC 32.1 g/dl (33.0-37.0); MEAN PLATELET VOLUME 10.7 fl (9.6-12.3); MONO # 0.8 10*3/uL (0.1-1.0); MONO % 6.3 % (3.0-9.0); NEUT % 75.5 % (47.0-73.0); PLATELET COUNT AUTOMATED 212 10*3/uL (130-400); RED BLOOD COUNT 4.71 10*6/uL (4.50-5.90); RED CELL DISTRI WIDTH 15.7 % (0-14.5); WHITE BLOOD COUNT 13.3 10*3/uL (4.8-10.8)
[2017-03-04 07:57] LABS: ALBUMIN 3.1 gm/dl (3.1-4.5); BUN 17 mg/dl (7-24); CHLORIDE 103 mmol/L (98-107); CHOLESTEROL 139 mg/dL (<200); CREATININE 1.17 mg/dL (0.70-1.30); HDL CHOLESTEROL 37 mg/dl (40-60); LDL CHOLESTEROL 75 mg/dL (9-159); SGOT/AST 16 IU/L (3-35); SGPT/ALT 23 U/L (12-78); SODIUM 137 mmol/L (136-145); TOTAL PROTEIN 7.8 gm/dL (6.4-8.2); TRIGLYCERIDES 135 mg/dl (<150); VLDL CHOLESTEROL 27 mg/dL (6-40)
[2017-03-04 08:04] LABS: VITAMIN D, 25-HYDROXY 23.9 ng/mL (30-100)
[2017-03-04 08:05] LABS: ALKALINE PHOSPHATASE 82 U/L (45-117)
[2017-03-04 08:16] VITALS: BP 123/75
[2017-03-04 20:09] VITALS: BP 128/68
[2017-03-05 07:55] VITALS: BP 121/76
[2017-03-05 20:00] VITALS: BP 122/68
[2017-03-06 07:54] VITALS: BP 124/72
[2017-03-06 20:00] VITALS: BP 122/70
[2017-03-07 07:43] VITALS: BP 126/74
[2017-03-07 20:31] VITALS: BP 121/76
[2017-03-08 08:21] VITALS: BP 130/80
[2017-03-08 20:00] VITALS: BP 129/74
[2017-03-09 08:13] VITALS: BP 129/73
[2017-03-09 20:24] VITALS: BP 139/88
[2017-03-10 08:00] VITALS: BP 119/73
[2017-03-10 20:00] VITALS: BP 133/64
[2017-03-11 08:07] VITALS: BP 132/68
[2017-03-11 20:00] VITALS: BP 118/82
[2017-03-12 07:58] VITALS: BP 120/82
[2017-03-12 20:00] VITALS: BP 118/72
[2017-03-13 07:59] VITALS: BP 117/70
[2017-03-13 20:11] VITALS: BP 117/70
[2017-03-14 08:03] VITALS: BP 128/77
[2017-03-14 20:00] VITALS: BP 121/72
[2017-03-15 07:38] LABS: BASO # 0.1 10*3/uL (0.0-0.1); BASO % 0.5 % (0.0-1.0); EOS # 0.2 10*3/uL (0.0-0.4); EOS % 1.5 % (1.0-4.0); HEMOGLOBIN 13.1 g/dl (14.0-18.0); LYMPH # 1.8 10*3/uL (1.3-4.4); MEAN CELL VOLUME 84.7 fl (80.0-94.0); MEAN CORPUSCULAR HGB 27.8 pg (27.0-31.0); MEAN CORPUSCULAR HGB CONC 32.8 g/dl (33.0-37.0); MEAN PLATELET VOLUME 11.1 fl (9.6-12.3); MONO # 0.9 10*3/uL (0.1-1.0); NEUT % 76.5 % (47.0-73.0); PLATELET COUNT AUTOMATED 205 10*3/uL (130-400); RED BLOOD COUNT 4.72 10*6/uL (4.50-5.90); RED CELL DISTRI WIDTH 15.4 % (0-14.5)
[2017-03-15 07:56] LABS: BUN 24 mg/dl (7-24); CHLORIDE 100 mmol/L (98-107); CREATININE 1.25 mg/dL (0.70-1.30); POTASSIUM 4.5 mmol/L (3.5-5.1); SODIUM 136 mmol/L (136-145)
[2017-03-15 08:04] LABS: THYROID STIM HORMONE (HS) 0.574 uIU/ml (0.358-4.75)
[2017-03-15 08:07] VITALS: BP 116/69
[2017-03-15 19:54] VITALS: BP 132/81
[2017-03-16 08:47] VITALS: BP 136/75
[2017-03-16 20:02] VITALS: BP 118/65
[2017-03-17 07:50] VITALS: BP 132/74
[2017-03-17] MEDS ORDERED: VITAMIN D-32000 UNIT PO (08:23)
[2017-03-17] MEDS ORDERED: VRAYLAR3 MG PO (09:47)
[2017-03-17] MEDS ORDERED: ROZEREM8 MG PO (09:47)
[2017-03-17] MEDS ORDERED: FETZIMA120 M1 PO (09:47)
[2017-03-17] MEDS ORDERED: BUDEPRION XL150 MG PO (09:47)
== END 2017-03-17 10:45 | disposition home or self-care (01) | DRG 885 ==
LOC: 3N 15:05
PROVIDERS: Internal Medicine; Psychiatry & Neurology Psychiatry
DX: F33.3 Major depressive disorder, recurrent, severe with psychotic symptoms (principal); E44.0 Moderate protein-calorie malnutrition; I50.32 Chronic diastolic (congestive) heart failure; E11.65 Type 2 diabetes mellitus with hyperglycemia; E66.01 Morbid (severe) obesity due to excess calories; R45.851 Suicidal ideations; Z68.42 Body mass index [BMI] 45.0-49.9, adult; J44.9 Chronic obstructive pulmonary disease, unspecified; E78.2 Mixed hyperlipidemia; M19.90 Unspecified osteoarthritis, unspecified site; E89.0 Postprocedural hypothyroidism; D72.829 Elevated white blood cell count, unspecified; E53.8 Deficiency of other specified B group vitamins; F39 Unspecified mood [affective] disorder; D50.9 Iron deficiency anemia, unspecified; E55.9 Vitamin D deficiency, unspecified; F34.1 Dysthymic disorder; Z86.73 Personal history of transient ischemic attack (TIA), and cerebral infarction without residual deficits; Z87.891 Personal history of nicotine dependence; Z82.49 Family history of ischemic heart disease and other diseases of the circulatory system

== ENCOUNTER 2017-05-05 18:13 | Inpatient (IN) | payer MEDICARE, MEDICAID ==
[~2017-05-05] VITALS: Ht 188 cm; Wt 167.6 kg
--- NOTE | ~2017-05-05 | O ---
[place], [place] OPERATIVE NOTE NAME: ISMAEL TOBIN UNIT #: [id number] ROOM: 411 DOCTOR: NOHEMI VELA MD BIRTHDATE: [birth year] DOS: 05/12/2017 HISTORY OF PRESENT ILLNESS: The patient presented with abnormal liver function tests, abnormal HIDA scan, pancreatitis, elevated lipase greater than 2500 and we tried to get the MRCP done on this patient. He is large. He is morbidly obese. He could not fit into the machinery. PROCEDURE: Today's procedure part of investigation is ERCP. PREMEDICATION: Versed and Diprivan. SCOPE: Olympus side-viewing duodenoscope. REPORT: After putting the patient in left lateral position and application of lubricant to the scope, the scope was introduced. Thereafter, under direct visualization, I advanced through the length of esophagus without difficulty into gastric pouch, which expresses multiple small erosions and gastritis as I entered into duodenum, multilinear duodenal ulcers. Papilla of water was very dismal. With great difficulty, we were able to finally negotiate guidewire into the pancreatic duct and minimal injection was undertaken to identify the anatomy of the pancreatic duct. High-grade papillary stenosis was noticed. We did not want to cut blindly to his papilla because he already has pancreatitis. Pancreatic duct however ____ smooth in the body of the pancreas particularly within the body of the pancreatic duct. Multiple attempts were done to negotiate the wire into the common bile duct without cutting the papilla was not practical, therefore the patient was extubated and tolerated procedure well. IMPRESSION: Abnormal pancreatic duct. ERCP high grade papillary stenosis. No access to common duct. PLAN AND DISCUSSION: We are going to obtain a serum triglyceride and cholesterol as well after completion of workup and HIDA scan has already been noticed. Workup in progress. We may have to after discharge organize outpatient MRCP and institution where he can be fit into machinery due to his large size. [place], [place] OPERATIVE NOTE NAME: ISMAEL TOBIN UNIT #: [id number] ROOM: 411 DOCTOR: NOHEMI VELA MD BIRTHDATE: [birth year] NOHEMI VELA MD CM:KHLOEECORD:OPERATIVE NOTE 04 24 NOHEMI VELA MD 05/12/171924 interface
--- NOTE | ~2017-05-05 | O ---
[place], [place] OPERATIVE NOTE NAME: ISMAEL TOBIN UNIT #: [id number] ROOM: 411 DOCTOR: NOHEMI VELA MD BIRTHDATE: [birth year] DOS: 05/07/2017 HISTORY OF PRESENT ILLNESS: A 61-year-old patient who was presented with chief complaint of epigastric abdominal pain, right lower quadrant pain, morbid obesity, diabetes mellitus, leukocytosis, hypertension and hyperlipidemia. PROCEDURE: Today's procedure part of investigation is colonoscopy. PREMEDICATION: Versed and Diprivan. SCOPE: Olympus forward-viewing colonoscope 10L video. REPORT: After putting the patient in left lateral position and application of lubricant to the scope, the scope was introduced. Thereafter, under direct visualization, advanced through the length of colon without difficulty. Difficulty and hindrance of accuracy happens with retention of semi-liquid stool throughout the colon; however, we managed to get to base of cecum, ileocecal valve was defined and photographed. Base of the cecum photographed. Air was suctioned out. The scattered diverticulosis seen. Redundancy of colon appreciated. The patient extubated, tolerated the procedure well. IMPRESSION: Redundant colon, retained semi-liquid stool. PLAN ON DISCUSSION: We are going to keep this patient treated like diverticulitis with antibiotic coverage and observation of white blood cell response and clinical reassessment. Diet, full liquid till we definitively have with a decrease in number of white blood cell expression. NOHEMI VELA MD CM:OPRECORD:OPERATIVE NOTE 1352 1408 NOHEMI VELA MD 05/07/17 1406 interface
--- NOTE | ~2017-05-05 | CON ---
[place], [place] REPORT OF CONSULTATION NAME: ISMAEL TOBIN UNIT #: [id number] ROOM: 411 DOCTOR: NOHEMI VELA MD BIRTHDATE: [birth year] DOS: 05/07/2017 GASTROENDOSCOPIC REPORT HISTORY OF PRESENT ILLNESS: A 61-year-old patient, who presented with abdominal pain. The patient is known for morbid obesity and diffuse hepatic steatosis. The patient had to be admitted for definitive assessment, especially that his white blood cell was 15, H and H of 13 and 42, neutrophils 78. INR was 1.0. Comprehensive metabolic panel within normal limit. Liver function test normal. Amylase and lipase of 151 and 1097. Chest x-ray, no acute intrathoracic pathology. CT scan was reassessed. No acute intraabdominal pathology, indeterminate hypodense lesion in the lower pole of the right kidney. Further evaluation recommended with management of renal protocol MRI to exclude pathology in the kidney, white blood cell follow up stays about 14. Basic metabolic panel remains corrected. Amylase and lipase was followed up, lipase dropped to 800. Sonogram of the kidney was done. Diffuse hepatic steatosis again was noticed 2.2 x 2.4 renal cyst was reconfirmed. Gallbladder sonogram was done, no cholelithiasis. PAST MEDICAL HISTORY: Morbid obesity, COPD, diabetes mellitus, bipolar disorder. PAST SURGICAL HISTORY: Thyroidectomy, umbilical hernia. SOCIAL HISTORY: Nonsmoker at the present time; however, past history of smoking, nonalcohol consumer. FAMILY HISTORY: Noncontributory. ALLERGIES: To no known medications. MEDICATIONS: Medication list has been reviewed. REVIEW OF SYSTEMS: HEENT: Denies double vision, blurred vision. RESPIRATORY: Denies acute shortness of breath. CARDIOVASCULAR: Denies acute chest pain. DIGESTIVE SYSTEM: Abdominal pain, nonspecific with some nausea. PHYSICAL EXAMINATION: GENERAL: Morbidly obese patient with vital signs that are stable. HEENT: Head normocephalic, nontraumatic. Mouth and buccal mucosa benign. NECK: Supple, no thyromegaly, no cervical lymphadenopathy. CHEST: Symmetric anatomy, equal expansion. No wheeze, no rhonchi. HEART: Normal sinus rhythm, no gallop, no murmur. ABDOMEN: Morbidly obese. Intraabdominal organs cannot be palpated. Bowel sounds present. EXTREMITIES: 1+ pedal edema. NEUROLOGIC: Alert, oriented to time, place, and person. [place], [place] REPORT OF CONSULTATION NAME: ISMAEL TOBIN UNIT #: [id number] ROOM: 411 DOCTOR: DANE BARRERA,NOHEMI BIRTHDATE: [birth year] IMPRESSION: Nonspecific abdominal pain, leukocytosis, pancreatitis, elevation of amylase and lipase, hypothyroidism, bipolar disorder. Chronic congestive heart failure history, COPD, systemic hypertension, diabetes mellitus, all has been recognized. Renal cyst is noticed. PLAN AND DISCUSSION: Endoscopic assessment of upper GI tract for his nausea, nearly vomiting. Should the endoscopy be negative, we have to continue antibiotic therapy in this gentleman and the cystic lesion in the kidney has to be followed up and workup in progress. NOHEMI VELA MD CM:CONSTR:REPORT OF CONSULTATION 1321 05/08/17 0315 interface
[~2017-05-05 18:13] MED LIST changes: +BUDEPRION XL150 MG PO; +FEOSOL325 MG PO; +REMERON30 M1 PO; +SYNTHROID300 MCG PO; +VITAMIN D-32000 UNIT PO; +WELLBUTRIN XL300 MG PO
[2017-05-05 18:19] VITALS: BP 163/92
[2017-05-05 19:23] LABS: BASO # 0.1 10*3/uL (0.0-0.1); BASO % 0.5 % (0.0-1.0); EOS # 0.3 10*3/uL (0.0-0.4); EOS % 1.7 % (1.0-4.0); HEMOGLOBIN 13.5 g/dl (14.0-18.0); LYMPH # 1.9 10*3/uL (1.3-4.4); MEAN CELL VOLUME 85.7 fl (80.0-94.0); MEAN CORPUSCULAR HGB 27.6 pg (27.0-31.0); MEAN CORPUSCULAR HGB CONC 32.1 g/dl (33.0-37.0); MEAN PLATELET VOLUME 10.5 fl (9.6-12.3); MONO % 6.5 % (3.0-9.0); NEUT # 12.2 10*3/uL (2.3-7.9); NEUT % 78.8 % (47.0-73.0); PLATELET COUNT AUTOMATED 262 10*3/uL (130-400); RED CELL DISTRI WIDTH 15.2 % (0-14.5); WHITE BLOOD COUNT 15.5 10*3/uL (4.8-10.8)
[2017-05-05 19:30] VITALS: BP 159/90
[2017-05-05 19:38] LABS: ACT PARTIAL THROMBO TIME 22.2 SECONDS (20.8-31.5)
[2017-05-05 19:39] LABS: ALBUMIN 3.1 gm/dl (3.1-4.5); ALKALINE PHOSPHATASE 99 U/L (45-117); BUN 18 mg/dl (7-24); CHLORIDE 101 mmol/L (98-107); LIPASE 1094 U/L (73-393); POTASSIUM 4.5 mmol/L (3.5-5.1); SGOT/AST 21 IU/L (3-35); SGPT/ALT 33 U/L (12-78); SODIUM 136 mmol/L (136-145); TOTAL PROTEIN 8.1 gm/dL (6.4-8.2)
[2017-05-05 20:38] VITALS: BP 162/96
[2017-05-05 22:10] VITALS: BP 146/84
[2017-05-06] VITALS: BP 138/75
[2017-05-06 07:20] LABS: BASO # 0.1 10*3/uL (0.0-0.1); BASO % 0.6 % (0.0-1.0); EOS # 0.3 10*3/uL (0.0-0.4); EOS % 2.3 % (1.0-4.0); HEMATOCRIT 39.1 % (42.0-52.0); HEMOGLOBIN 12.3 g/dl (14.0-18.0); LYMPH # 1.9 10*3/uL (1.3-4.4); LYMPH % 14.4 % (27.0-41.0); MEAN CELL VOLUME 85.6 fl (80.0-94.0); MEAN CORPUSCULAR HGB 26.9 pg (27.0-31.0); MEAN CORPUSCULAR HGB CONC 31.5 g/dl (33.0-37.0); MEAN PLATELET VOLUME 10.7 fl (9.6-12.3); MONO % 7.2 % (3.0-9.0); NEUT % 75.1 % (47.0-73.0); PLATELET COUNT AUTOMATED 230 10*3/uL (130-400); RED BLOOD COUNT 4.57 10*6/uL (4.50-5.90); RED CELL DISTRI WIDTH 15.2 % (0-14.5); WHITE BLOOD COUNT 13.4 10*3/uL (4.8-10.8)
[2017-05-06 07:42] LABS: ALBUMIN 2.8 gm/dl (3.1-4.5); BUN 15 mg/dl (7-24); CHLORIDE 105 mmol/L (98-107); CREATININE 0.98 mg/dL (0.70-1.30); PHOSPHOROUS 3.4 mg/dL (2.5-4.9); POTASSIUM 4.4 mmol/L (3.5-5.1); SGOT/AST 29 IU/L (3-35); SGPT/ALT 27 U/L (12-78); SODIUM 138 mmol/L (136-145); TOTAL PROTEIN 7.2 gm/dL (6.4-8.2)
[2017-05-06 07:44] LABS: ALKALINE PHOSPHATASE 79 U/L (45-117)
[2017-05-06 07:45] LABS: LIPASE 2164 U/L (73-393)
[2017-05-06 08:00] VITALS: BP 144/72
[2017-05-06] MEDS ORDERED: NATURE'S BLEND F1 MG PO (09:10)
[2017-05-06] MEDS ORDERED: REMERON30 M1 PO (09:10)
[2017-05-06 12:00] VITALS: BP 143/88
[2017-05-06 16:00] VITALS: BP 155/75
[2017-05-06 20:00] VITALS: BP 148/88
[2017-05-07] VITALS (9 sets, daily range): BP systolic 112–154; BP diastolic 68–91
[2017-05-07 06:17] LABS: BASO # 0.1 10*3/uL (0.0-0.1); BASO % 0.5 % (0.0-1.0); EOS # 0.3 10*3/uL (0.0-0.4); EOS % 1.7 % (1.0-4.0); HEMATOCRIT 38.6 % (42.0-52.0); HEMOGLOBIN 12.4 g/dl (14.0-18.0); LYMPH % 13.6 % (27.0-41.0); MEAN CELL VOLUME 84.8 fl (80.0-94.0); MEAN CORPUSCULAR HGB 27.3 pg (27.0-31.0); MEAN CORPUSCULAR HGB CONC 32.1 g/dl (33.0-37.0); MEAN PLATELET VOLUME 10.8 fl (9.6-12.3); NEUT % 76.8 % (47.0-73.0); PLATELET COUNT AUTOMATED 238 10*3/uL (130-400); RED BLOOD COUNT 4.55 10*6/uL (4.50-5.90); RED CELL DISTRI WIDTH 14.9 % (0-14.5); WHITE BLOOD COUNT 14.4 10*3/uL (4.8-10.8)
[2017-05-07 06:38] LABS: BUN 11 mg/dl (7-24); CHLORIDE 104 mmol/L (98-107); CREATININE 1.04 mg/dL (0.70-1.30); LIPASE 802 U/L (73-393); PHOSPHOROUS 3.5 mg/dL (2.5-4.9); POTASSIUM 3.9 mmol/L (3.5-5.1); SODIUM 138 mmol/L (136-145)
[2017-05-08] VITALS: BP 142/76
[2017-05-08 06:24] LABS: BASO # 0.1 10*3/uL (0.0-0.1); BASO % 0.5 % (0.0-1.0); EOS # 0.2 10*3/uL (0.0-0.4); HEMATOCRIT 38.1 % (42.0-52.0); HEMOGLOBIN 12.4 g/dl (14.0-18.0); LYMPH # 1.5 10*3/uL (1.3-4.4); LYMPH % 13.9 % (27.0-41.0); MEAN CELL VOLUME 85.2 fl (80.0-94.0); MEAN CORPUSCULAR HGB 27.7 pg (27.0-31.0); MEAN CORPUSCULAR HGB CONC 32.5 g/dl (33.0-37.0); MEAN PLATELET VOLUME 10.7 fl (9.6-12.3); MONO # 0.8 10*3/uL (0.1-1.0); MONO % 6.9 % (3.0-9.0); NEUT # 8.5 10*3/uL (2.3-7.9); NEUT % 76.2 % (47.0-73.0); PLATELET COUNT AUTOMATED 220 10*3/uL (130-400); RED BLOOD COUNT 4.47 10*6/uL (4.50-5.90); RED CELL DISTRI WIDTH 14.8 % (0-14.5); WHITE BLOOD COUNT 11.1 10*3/uL (4.8-10.8)
[2017-05-08 06:31] LABS: BUN 12 mg/dl (7-24); CHLORIDE 104 mmol/L (98-107); CREATININE 0.97 mg/dL (0.70-1.30); LIPASE 256 U/L (73-393); POTASSIUM 3.7 mmol/L (3.5-5.1); SODIUM 137 mmol/L (136-145)
[2017-05-08 08:00] VITALS: BP 136/81; BP 150/82
[2017-05-08 12:00] VITALS: BP 100/67; BP 156/78
[2017-05-08 16:00] VITALS: BP 138/84
[2017-05-08 20:00] VITALS: BP 152/80
[2017-05-09] VITALS: BP 158/92
[2017-05-09 06:19] LABS: BASO # 0.1 10*3/uL (0.0-0.1); BASO % 0.7 % (0.0-1.0); EOS # 0.3 10*3/uL (0.0-0.4); EOS % 2.4 % (1.0-4.0); HEMATOCRIT 38.2 % (42.0-52.0); HEMOGLOBIN 12.7 g/dl (14.0-18.0); LYMPH # 1.5 10*3/uL (1.3-4.4); LYMPH % 12.9 % (27.0-41.0); MEAN CELL VOLUME 84.1 fl (80.0-94.0); MEAN CORPUSCULAR HGB CONC 33.2 g/dl (33.0-37.0); MONO # 0.8 10*3/uL (0.1-1.0); MONO % 6.9 % (3.0-9.0); NEUT % 76.6 % (47.0-73.0); PLATELET COUNT AUTOMATED 225 10*3/uL (130-400); RED BLOOD COUNT 4.54 10*6/uL (4.50-5.90); WHITE BLOOD COUNT 11.7 10*3/uL (4.8-10.8)
[2017-05-09 06:51] LABS: ALBUMIN 2.9 gm/dl (3.1-4.5); ALKALINE PHOSPHATASE 79 U/L (45-117); BUN 11 mg/dl (7-24); CHLORIDE 104 mmol/L (98-107); CREATININE 0.98 mg/dL (0.70-1.30); POTASSIUM 3.4 mmol/L (3.5-5.1); SGOT/AST 22 IU/L (3-35); SGPT/ALT 31 U/L (12-78); SODIUM 139 mmol/L (136-145); TOTAL PROTEIN 7.4 gm/dL (6.4-8.2)
[2017-05-09 08:00] VITALS: BP 150/80
[2017-05-09 12:00] VITALS: BP 140/90
[2017-05-09 16:00] VITALS: BP 150/82
[2017-05-09 20:00] VITALS: BP 130/60
[2017-05-10 01:01] VITALS: BP 122/61
[2017-05-10 05:56] LABS: ALBUMIN 2.8 gm/dl (3.1-4.5); ALKALINE PHOSPHATASE 65 U/L (45-117); BUN 10 mg/dl (7-24); CHLORIDE 104 mmol/L (98-107); LIPASE 284 U/L (73-393); POTASSIUM 4.2 mmol/L (3.5-5.1); SGOT/AST 39 IU/L (3-35); SGPT/ALT 39 U/L (12-78); SODIUM 138 mmol/L (136-145); TOTAL PROTEIN 7.1 gm/dL (6.4-8.2)
[2017-05-10 06:17] LABS: BASO # 0.1 10*3/uL (0.0-0.1); BASO % 0.5 % (0.0-1.0); EOS # 0.3 10*3/uL (0.0-0.4); EOS % 2.6 % (1.0-4.0); HEMATOCRIT 36.9 % (42.0-52.0); HEMOGLOBIN 12.1 g/dl (14.0-18.0); LYMPH # 1.6 10*3/uL (1.3-4.4); LYMPH % 13.6 % (27.0-41.0); MEAN CELL VOLUME 85.2 fl (80.0-94.0); MEAN CORPUSCULAR HGB 27.9 pg (27.0-31.0); MEAN CORPUSCULAR HGB CONC 32.8 g/dl (33.0-37.0); MEAN PLATELET VOLUME 10.7 fl (9.6-12.3); MONO # 0.8 10*3/uL (0.1-1.0); MONO % 7.1 % (3.0-9.0); NEUT # 8.8 10*3/uL (2.3-7.9); NEUT % 75.8 % (47.0-73.0); PLATELET COUNT AUTOMATED 225 10*3/uL (130-400); RED BLOOD COUNT 4.33 10*6/uL (4.50-5.90); WHITE BLOOD COUNT 11.6 10*3/uL (4.8-10.8)
[2017-05-10 08:00] VITALS: BP 141/65
[2017-05-10 12:00] VITALS: BP 154/94
[2017-05-10 16:00] VITALS: BP 146/94
[2017-05-10 20:00] VITALS: BP 138/82
[2017-05-11] VITALS: BP 138/76
[2017-05-11 06:01] LABS: BASO # 0.1 10*3/uL (0.0-0.1); BASO % 0.7 % (0.0-1.0); EOS # 0.4 10*3/uL (0.0-0.4); HEMATOCRIT 37.7 % (42.0-52.0); HEMOGLOBIN 12.4 g/dl (14.0-18.0); LYMPH # 1.4 10*3/uL (1.3-4.4); LYMPH % 11.6 % (27.0-41.0); MEAN CELL VOLUME 85.3 fl (80.0-94.0); MEAN CORPUSCULAR HGB 28.1 pg (27.0-31.0); MEAN CORPUSCULAR HGB CONC 32.9 g/dl (33.0-37.0); MEAN PLATELET VOLUME 11.7 fl (9.6-12.3); MONO # 0.7 10*3/uL (0.1-1.0); MONO % 6.3 % (3.0-9.0); NEUT # 9.1 10*3/uL (2.3-7.9); NEUT % 77.9 % (47.0-73.0); PLATELET COUNT AUTOMATED 196 10*3/uL (130-400); RED BLOOD COUNT 4.42 10*6/uL (4.50-5.90); RED CELL DISTRI WIDTH 15.2 % (0-14.5); WHITE BLOOD COUNT 11.7 10*3/uL (4.8-10.8)
[2017-05-11 06:08] LABS: ALBUMIN 2.7 gm/dl (3.1-4.5); ALKALINE PHOSPHATASE 66 U/L (45-117); BUN 8 mg/dl (7-24); CHLORIDE 105 mmol/L (98-107); CREATININE 1.02 mg/dL (0.70-1.30); PHOSPHOROUS 3.2 mg/dL (2.5-4.9); SGOT/AST 41 IU/L (3-35); SGPT/ALT 51 U/L (12-78); SODIUM 140 mmol/L (136-145)
[2017-05-11 06:34] LABS: LIPASE 2831 U/L (73-393)
[2017-05-11 08:00] VITALS: BP 124/73
[2017-05-11 12:00] VITALS: BP 144/85
[2017-05-11 16:00] VITALS: BP 118/63
[2017-05-11 20:00] VITALS: BP 143/71
[2017-05-12] VITALS (10 sets, daily range): BP systolic 132–162; BP diastolic 55–83
[2017-05-12 06:44] LABS: BASO # 0.1 10*3/uL (0.0-0.1); BASO % 0.5 % (0.0-1.0); EOS # 0.3 10*3/uL (0.0-0.4); EOS % 2.2 % (1.0-4.0); HEMATOCRIT 41.7 % (42.0-52.0); HEMOGLOBIN 13.4 g/dl (14.0-18.0); LYMPH # 1.7 10*3/uL (1.3-4.4); MEAN CORPUSCULAR HGB 27.6 pg (27.0-31.0); MEAN CORPUSCULAR HGB CONC 32.1 g/dl (33.0-37.0); MEAN PLATELET VOLUME 10.8 fl (9.6-12.3); MONO # 0.8 10*3/uL (0.1-1.0); MONO % 6.3 % (3.0-9.0); NEUT # 9.4 10*3/uL (2.3-7.9); NEUT % 76.4 % (47.0-73.0); RED BLOOD COUNT 4.85 10*6/uL (4.50-5.90); RED CELL DISTRI WIDTH 15.2 % (0-14.5); WHITE BLOOD COUNT 12.3 10*3/uL (4.8-10.8)
[2017-05-12 06:46] LABS: PLATELET COUNT AUTOMATED 291 10*3/uL (130-400)
[2017-05-12 06:48] LABS: ALBUMIN 3.1 gm/dl (3.1-4.5); BUN 7 mg/dl (7-24); CHLORIDE 103 mmol/L (98-107); CREATININE 1.11 mg/dL (0.70-1.30); POTASSIUM 3.9 mmol/L (3.5-5.1); SGOT/AST 51 IU/L (3-35); SGPT/ALT 69 U/L (12-78); SODIUM 139 mmol/L (136-145); TOTAL PROTEIN 7.9 gm/dL (6.4-8.2)
[2017-05-12 06:49] LABS: ALKALINE PHOSPHATASE 74 U/L (45-117)
[2017-05-12 07:00] LABS: LIPASE 2051 U/L (73-393)
[2017-05-13] VITALS: BP 145/64
[2017-05-13 06:17] LABS: BASO # 0.1 10*3/uL (0.0-0.1); BASO % 0.5 % (0.0-1.0); EOS # 0.2 10*3/uL (0.0-0.4); EOS % 2.1 % (1.0-4.0); HEMATOCRIT 39.3 % (42.0-52.0); HEMOGLOBIN 12.4 g/dl (14.0-18.0); LYMPH # 1.2 10*3/uL (1.3-4.4); LYMPH % 10.5 % (27.0-41.0); MEAN CELL VOLUME 84.9 fl (80.0-94.0); MEAN CORPUSCULAR HGB 26.8 pg (27.0-31.0); MEAN CORPUSCULAR HGB CONC 31.6 g/dl (33.0-37.0); MEAN PLATELET VOLUME 10.1 fl (9.6-12.3); MONO # 0.7 10*3/uL (0.1-1.0); MONO % 6.3 % (3.0-9.0); NEUT # 8.8 10*3/uL (2.3-7.9); NEUT % 80.1 % (47.0-73.0); PLATELET COUNT AUTOMATED 221 10*3/uL (130-400); RED BLOOD COUNT 4.63 10*6/uL (4.50-5.90); WHITE BLOOD COUNT 10.9 10*3/uL (4.8-10.8)
[2017-05-13 06:50] LABS: ALBUMIN 2.7 gm/dl (3.1-4.5); BUN 5 mg/dl (7-24); CHLORIDE 104 mmol/L (98-107); CREATININE 0.96 mg/dL (0.70-1.30); POTASSIUM 3.6 mmol/L (3.5-5.1); SGOT/AST 49 IU/L (3-35); SGPT/ALT 63 U/L (12-78); SODIUM 139 mmol/L (136-145); TOTAL PROTEIN 7.1 gm/dL (6.4-8.2); TRIGLYCERIDES 72 mg/dl (<150); VLDL CHOLESTEROL 14 mg/dL (6-40)
[2017-05-13 06:53] LABS: ALKALINE PHOSPHATASE 62 U/L (45-117); CHOLESTEROL 134 mg/dL (<200); HDL CHOLESTEROL 39 mg/dl (40-60); LDL CHOLESTEROL 81 mg/dL (9-159)
[2017-05-13 06:58] LABS: LIPASE 2242 U/L (73-393)
[2017-05-13 08:00] VITALS: BP 150/72
[2017-05-13 12:00] VITALS: BP 134/78; BP 144/72
[2017-05-13] MEDS ORDERED: PANTOPRAZOLE SO40 MG PO (15:04)
[2017-05-13] MEDS ORDERED: CIPRO500 MG PO (15:05)
[2017-05-13] MEDS ORDERED: FLAGYL500 MG PO (15:05)
[2017-05-13 16:00] VITALS: BP 145/73
[2017-05-14 08:13] LABS: LDL CHOLESTEROL (DIRECT) 82 mg/dL (0-99)
== END 2017-05-13 16:31 | disposition home or self-care (01) | DRG 981 ==
LOC: ED 18:13 → EDHOLD 20:53 → 4E 20:53
PROVIDERS: Emergency Medicine; Family Medicine; Hospitalist; Internal Medicine; Internal Medicine Gastroenterology; Internal Medicine Nephrology; Nurse Practitioner; Student in an Organized Health Care Education/Training Program
PROC: 0D9H8ZZ Drainage of Cecum, Via Natural or Artificial Opening Endoscopic (ICD-10-PCS; principal; 2017-05-07)
PROC: 0FJD8ZZ Inspection of Pancreatic Duct, Via Natural or Artificial Opening Endoscopic (ICD-10-PCS; 2017-05-12)
DX: K85.90 Acute pancreatitis without necrosis or infection, unspecified (principal); K29.71 Gastritis, unspecified, with bleeding; I11.0 Hypertensive heart disease with heart failure; E11.8 Type 2 diabetes mellitus with unspecified complications; K31.5 Obstruction of duodenum; K57.31 Diverticulosis of large intestine without perforation or abscess with bleeding; K26.4 Chronic or unspecified duodenal ulcer with hemorrhage; I50.32 Chronic diastolic (congestive) heart failure; E66.01 Morbid (severe) obesity due to excess calories; R65.10 Systemic inflammatory response syndrome (SIRS) of non-infectious origin without acute organ dysfunction; Q23.2 Congenital mitral stenosis; K29.81 Duodenitis with bleeding; F33.9 Major depressive disorder, recurrent, unspecified; Z68.42 Body mass index [BMI] 45.0-49.9, adult; M51.9 Unspecified thoracic, thoracolumbar and lumbosacral intervertebral disc disorder; J43.9 Emphysema, unspecified; N28.89 Other specified disorders of kidney and ureter; D72.829 Elevated white blood cell count, unspecified; R74.8 Abnormal levels of other serum enzymes; Z83.3 Family history of diabetes mellitus; E78.2 Mixed hyperlipidemia; E53.8 Deficiency of other specified B group vitamins; D50.9 Iron deficiency anemia, unspecified; E55.9 Vitamin D deficiency, unspecified; N28.1 Cyst of kidney, acquired; Z79.899 Other long term (current) drug therapy; E89.0 Postprocedural hypothyroidism; Z87.891 Personal history of nicotine dependence; Z82.49 Family history of ischemic heart disease and other diseases of the circulatory system; Z86.73 Personal history of transient ischemic attack (TIA), and cerebral infarction without residual deficits

== ENCOUNTER 2017-07-22 15:10 | Inpatient (IN) | payer MEDICARE, MEDICAID ==
[~2017-07-22] VITALS: Ht 188 cm; Wt 179.7 kg
[2017-07-22 15:10] VITALS: BP 113/60
[~2017-07-22 15:10] MED LIST changes: +CIPRO500 MG PO; +PANTOPRAZOLE SO40 MG PO
[2017-07-22 15:40] LABS: BASO # 0.1 10*3/uL (0.0-0.1); BASO % 0.6 % (0.0-1.0); EOS # 0.3 10*3/uL (0.0-0.4); EOS % 1.9 % (1.0-4.0); HEMATOCRIT 39.1 % (42.0-52.0); HEMOGLOBIN 12.6 g/dl (14.0-18.0); LYMPH # 1.6 10*3/uL (1.3-4.4); LYMPH % 11.4 % (27.0-41.0); MEAN CELL VOLUME 86.7 fl (80.0-94.0); MEAN CORPUSCULAR HGB 27.9 pg (27.0-31.0); MEAN CORPUSCULAR HGB CONC 32.2 g/dl (33.0-37.0); MEAN PLATELET VOLUME 11.6 fl (9.6-12.3); MONO # 0.7 10*3/uL (0.1-1.0); MONO % 4.8 % (3.0-9.0); NEUT # 11.2 10*3/uL (2.3-7.9); NEUT % 80.8 % (47.0-73.0); PLATELET COUNT AUTOMATED 205 10*3/uL (130-400); RED BLOOD COUNT 4.51 10*6/uL (4.50-5.90); RED CELL DISTRI WIDTH 16.4 % (0-14.5); WHITE BLOOD COUNT 13.9 10*3/uL (4.8-10.8)
[2017-07-22 15:49] LABS: ACT PARTIAL THROMBO TIME 23.5 SECONDS (20.8-31.5)
[2017-07-22 15:58] LABS: ALBUMIN 3.2 gm/dl (3.1-4.5); ALKALINE PHOSPHATASE 92 U/L (45-117); BUN 16 mg/dl (7-24); CHLORIDE 103 mmol/L (98-107); POTASSIUM 4.3 mmol/L (3.5-5.1); SGOT/AST 26 IU/L (3-35); SGPT/ALT 29 U/L (12-78); SODIUM 136 mmol/L (136-145); TOTAL PROTEIN 7.9 gm/dL (6.4-8.2)
[2017-07-22 16:00] LABS: TROPONIN I < 0.015 ng/ml (<0.045)
[2017-07-22 16:14] VITALS: BP 108/61
[2017-07-22 16:48] VITALS: BP 115/56
[2017-07-22 17:20] VITALS: BP 104/63
[2017-07-22] MEDS ORDERED: VITAMIN D50000 UNIT PO (17:34)
[2017-07-22] MEDS ORDERED: ARISTADA882 MG/3.2 IM (17:39)
[2017-07-22 18:00] VITALS: BP 144/92
[2017-07-22 20:00] VITALS: BP 112/61
[2017-07-23] VITALS: BP 144/71
[2017-07-23 07:22] LABS: BASO # 0.1 10*3/uL (0.0-0.1); BASO % 0.6 % (0.0-1.0); EOS # 0.2 10*3/uL (0.0-0.4); EOS % 1.6 % (1.0-4.0); HEMATOCRIT 40.8 % (42.0-52.0); LYMPH # 1.6 10*3/uL (1.3-4.4); LYMPH % 11.4 % (27.0-41.0); MEAN CELL VOLUME 87.6 fl (80.0-94.0); MEAN CORPUSCULAR HGB 27.9 pg (27.0-31.0); MEAN CORPUSCULAR HGB CONC 31.9 g/dl (33.0-37.0); MEAN PLATELET VOLUME 11.5 fl (9.6-12.3); MONO # 0.9 10*3/uL (0.1-1.0); MONO % 6.2 % (3.0-9.0); NEUT # 11.1 10*3/uL (2.3-7.9); NEUT % 79.6 % (47.0-73.0); PLATELET COUNT AUTOMATED 206 10*3/uL (130-400); RED BLOOD COUNT 4.66 10*6/uL (4.50-5.90); RED CELL DISTRI WIDTH 16.3 % (0-14.5)
[2017-07-23 07:58] LABS: BUN 17 mg/dl (7-24); CHLORIDE 100 mmol/L (98-107); CREATININE 1.42 mg/dL (0.70-1.30); PHOSPHOROUS 3.4 mg/dL (2.5-4.9); POTASSIUM 4.1 mmol/L (3.5-5.1); SODIUM 137 mmol/L (136-145)
[2017-07-23 08:00] VITALS: BP 116/52
[2017-07-23 12:00] VITALS: BP 131/72
[2017-07-23 16:00] VITALS: BP 136/86
[2017-07-23 20:00] VITALS: BP 129/69
[2017-07-24 00:14] VITALS: BP 129/74
[2017-07-24 07:41] LABS: ALBUMIN 3.1 gm/dl (3.1-4.5); CREATININE 1.5 mg/dL (0.70-1.30); PHOSPHOROUS 3.7 mg/dL (2.5-4.9); POTASSIUM 3.9 mmol/L (3.5-5.1)
[2017-07-24 08:00] VITALS: BP 128/71
[2017-07-24 12:00] VITALS: BP 120/67
== END 2017-07-24 14:34 | disposition home or self-care (01) | DRG 291 ==
LOC: ED 15:10 → 4E 16:39 → EDHOLD 16:39 → 4E 17:24
PROVIDERS: Emergency Medicine; Internal Medicine; Student in an Organized Health Care Education/Training Program
DX: I11.0 Hypertensive heart disease with heart failure (principal); N17.0 Acute kidney failure with tubular necrosis; Z68.43 Body mass index [BMI] 50.0-59.9, adult; R07.89 Other chest pain; I50.33 Acute on chronic diastolic (congestive) heart failure; E66.01 Morbid (severe) obesity due to excess calories; E11.65 Type 2 diabetes mellitus with hyperglycemia; D72.829 Elevated white blood cell count, unspecified; D64.9 Anemia, unspecified; D72.810 Lymphocytopenia; E03.9 Hypothyroidism, unspecified; F31.9 Bipolar disorder, unspecified; F41.9 Anxiety disorder, unspecified; M19.90 Unspecified osteoarthritis, unspecified site; E78.2 Mixed hyperlipidemia; E53.8 Deficiency of other specified B group vitamins; J43.9 Emphysema, unspecified; Z86.73 Personal history of transient ischemic attack (TIA), and cerebral infarction without residual deficits; Z82.49 Family history of ischemic heart disease and other diseases of the circulatory system; Z79.899 Other long term (current) drug therapy; Z87.891 Personal history of nicotine dependence

== ENCOUNTER 2017-08-25 21:09 | Emergency (ER) | payer MEDICARE, MEDICAID ==
[~2017-08-25] VITALS: Ht 190.5 cm; Wt 181.4 kg
[~2017-08-25 21:09] MED LIST changes: +ARISTADA882 MG/3.2 IM
[2017-08-25 21:46] LABS: BASO # 0.1 10*3/uL (0.0-0.1); BASO % 0.6 % (0.0-1.0); EOS # 0.2 10*3/uL (0.0-0.4); HEMATOCRIT 41.5 % (42.0-52.0); HEMOGLOBIN 13.2 g/dl (14.0-18.0); LYMPH # 1.8 10*3/uL (1.3-4.4); MEAN CORPUSCULAR HGB 27.7 pg (27.0-31.0); MEAN CORPUSCULAR HGB CONC 31.8 g/dl (33.0-37.0); MONO # 0.7 10*3/uL (0.1-1.0); NEUT # 9.3 10*3/uL (2.3-7.9); PLATELET COUNT AUTOMATED 248 10*3/uL (130-400); RED BLOOD COUNT 4.77 10*6/uL (4.50-5.90); WHITE BLOOD COUNT 12.3 10*3/uL (4.8-10.8)
[2017-08-25 22:01] LABS: ALBUMIN 3.1 gm/dl (3.1-4.5); ALKALINE PHOSPHATASE 81 U/L (45-117); BUN 15 mg/dl (7-24); CHLORIDE 104 mmol/L (98-107); CREATININE 1.36 mg/dL (0.70-1.30); POTASSIUM 4.1 mmol/L (3.5-5.1); SGOT/AST 16 IU/L (3-35); SGPT/ALT 21 U/L (12-78); SODIUM 140 mmol/L (136-145); TOTAL PROTEIN 8.1 gm/dL (6.4-8.2)
[2017-08-25 22:10] LABS: ACETAMINOPHEN (TYLENOL) < 2.0 ug/ml (10-30); ETHYL ALCOHOL < 3.0 mg/dl (<3)
[2017-08-25 22:11] LABS: BILIRUBIN NEGATIVE (NEGATIVE); BLOOD NEGATIVE (NEGATIVE); CLARITY CLEAR (CLEAR); COLOR YELLOW (YELLOW); GLUCOSE NEGATIVE (NEGATIVE); KETONE NEGATIVE (NEGATIVE); LEUKO ESTERASE NEGATIVE (NEGATIVE); NITRITE NEGATIVE (NEGATIVE); UROBILINOGEN 0.2 E.U./dl (0.2-1.0)
[2017-08-25 22:20] LABS: URINE AMPHETAMINES < 1000 (1000ng/ml); URINE BARBITURATES < 200 (200ng/ml); URINE BENZODIAZEPINES < 200 (200ng/ml); URINE CANNABINOIDS (THC) < 50 (50ng/ml); URINE COCAINE < 300 (300ng/ml); URINE METHADONE < 300 (300ng/ml); URINE OPIATES < 300 (300ng/ml)
[2017-08-25 22:21] LABS: URINE PHENCYCLIDINE < 25 (25ng/ml)
[2017-08-25 22:33] LABS: EPITHELIAL CELLS 0-5
[2017-08-25 22:34] LABS: RBC 0-2 rbc/hpf (0-2); WBC 0-2 wbc/hpf (0-5)
== END 2017-08-26 14:00 | disposition home health service (06) ==
LOC: ED 21:09
PROVIDERS: Student in an Organized Health Care Education/Training Program
DX: F32.9 Major depressive disorder, single episode, unspecified (principal); R45.851 Suicidal ideations; E66.01 Morbid (severe) obesity due to excess calories; M19.90 Unspecified osteoarthritis, unspecified site; I11.0 Hypertensive heart disease with heart failure; I50.9 Heart failure, unspecified; E03.9 Hypothyroidism, unspecified; E78.2 Mixed hyperlipidemia; E11.9 Type 2 diabetes mellitus without complications; Z86.73 Personal history of transient ischemic attack (TIA), and cerebral infarction without residual deficits; Z87.891 Personal history of nicotine dependence; Z98.890 Other specified postprocedural states; Z90.89 Acquired absence of other organs; Z79.899 Other long term (current) drug therapy

== ENCOUNTER 2017-08-26 15:08 | Inpatient (IN) | payer MEDICARE, MEDICAID ==
[~2017-08-26] VITALS: Ht 190.5 cm; Wt 181.4 kg
--- NOTE | ~2017-08-26 | PR ---
[place], [place] PROGRESS NOTE NAME: ISMAEL TOBIN UNIT #: [id number] ROOM: 311 DOCTOR: SUE WEBB MD BIRTHDATE: [birth year] DOS: 08/30/2017 INTERVAL NOTE CHIEF COMPLAINT: "I'm still feeling depressed Dr. Webb." SUMMARY OF THE VISIT: The patient was interviewed as he sat eating breakfast. He continues to appear extremely depressed and despondent. He lacks spontaneity and his responses tended to be very short and simple with me. He did report he is still having significant sleep issues with sleep continuity disturbance being one of the major issues. MENTAL STATUS: He is alert and oriented with time gaps. Mood does seem to be very down and depressed. Affect is flat, blunted, and constricted. There is no valentin or hypomania. He voices no auditory or visual hallucinations, delusions or paranoia. Short-term memory has some gaps. PLAN: I will maintain his current psychotropics. Consider lowering the Remeron dose, but for now, we will maintain. I have consulted Dr. Shant Vasquez to evaluate him for competency based on poor decision making. The patient's TSH is in excess of 200 because he is noncompliant with his thyroid meds. In general, he is noncompliant with all aspects of his care and he has alternated medical hospitalizations frequently along with his psychiatric hospitalization. I do fear for his safety in the long run that something bad will happen due to his continued poor decision making. SUE WEBB MD CM:PNTRANS 2 30 SUE WEBB MD 08/30/172128 interface
--- NOTE | ~2017-08-26 | DS ---
[place], [place] DISCHARGE SUMMARY [id number] UNIT #: [id number] ROOM: 311 DOCTOR: SUE GANNON MD BIRTHDATE: [birth year] DOS: 09/08/2017 CHIEF COMPLAINT: "I have just been feeling so depressed, I forgot to take my medicine." HISTORY OF PRESENT ILLNESS: This is a 62-year-old white male known to me from multiple admissions here to the [facility] unit as well as my previous practice in [place], [place]. He presented to the Emergency Room increasingly depressed with suicidal ideation and a plan. Per his report, he has not been taking his medications and has gone into a very deep depression with significant neurovegetative symptoms with poor sleep, appetite, anergia, anhedonia and positive suicidal thoughts. PAST MEDICAL HISTORY: Remarkable for congestive heart failure, chronic kidney disease stage 3, diabetes, COPD, folic acid deficiency, GERD, CVA, hypertension, hypothyroidism, iron deficiency anemia, hyperlipidemia, morbid obesity, sleep apnea, renal cyst, osteoarthritis, and vitamin D deficiency. SOCIAL HISTORY: The patient is a former smoker. He does not drink alcohol or use illicit drugs. FAMILY HISTORY: Remarkable for diabetes and congestive heart failure. He lists no known allergies. STRENGTHS: Ambulatory, good verbal skills. WEAKNESSES: Poor decision making, poor coping skills, lack of insight. SUMMARY OF HOSPITAL COURSE: The patient was admitted to the unit where he was restarted on his Abilify and reloaded with Aristada. Remeron was started at 15 mg at bedtime and rapidly titrated upwards to its maximum dose of 45 mg at bedtime in order to give him some energy. Wellbutrin-XL was utilized also to augment the effectiveness of the Remeron and to improve energy level. It was increased to its maximum dose of 450 mg in the morning. Additionally, Provigil was added as an alertness enhancer to give him improved concentration. With this combination of medications, he improved dramatically. Because of the severity of the patient's depression and his lack of following up with medical care, it was strongly recommended that he go to [facility] for additional rehabilitation. The patient was discharged to [facility] on 09/08/2017. I will follow him upon his readmission there. MENTAL STATUS AT DISCHARGE: The patient is alert and oriented x 3. Mood does seem to be strongly trending towards euthymia. Affect is more appropriate. There is no valentin or hypomania. There are no gross psychotic symptoms. Memory for the most part is fully intact. DIAGNOSIS UPON DISCHARGE: Major depression, recurrent, severe and dysthymic disorder. DISPOSITION: To be admitted to [facility]. At the time of discharge, he was [place], [place] DISCHARGE SUMMARY NAME: ISMAEL TOBIN UNIT #: [id number] ROOM: [facility] DOCTOR: SUE GANNON MD BIRTHDATE: [birth year] medically and psychiatrically stable. His biopsychosocial needs were adequately being met by the family. I will be the psychiatrist of record upon his readmission to [facility]. SUE GANNON MD CM:CUBA [id number] SUE GANNON MD 09/08/17 1451 interface
--- NOTE | ~2017-08-26 | CON ---
[place], [place] REPORT OF CONSULTATION NAME: ISMAEL TOBIN UNIT #: [id number] ROOM: 311 DOCTOR: RADHA GUTHRIE ED.D (COCO) BIRTHDATE: [birth year] DOS: 08/30/2017 HISTORY OF PRESENT ILLNESS: The patient is a 62-year-old male referred by Dr. Webb for competency evaluation. At the present time, this patient is on the [facility] at [facility]. He is and has one daughter, who resides in [place]. He is on social security and he has social security benefits. This patient's family physician is Dr. Saldivar and his medical history is pertinent for major depressive disorder, recurrent; chronic anemia, sleep apnea, renal cyst, GERD, history of CVA, acid reflux, chronic kidney disease, and congestive heart failure. He also has COPD, hypertension, morbid obesity, osteoarthritis, vitamin D deficiency, diabetes mellitus type 2. MEDICATIONS: His medications include folic acid, Aldactone, vitamin D, Lasix, Zetia, Zocor, Wellbutrin, Synthroid, Protonix, Abilify, Aristada, Geodon and Ativan. SOCIAL HISTORY: This patient denies any substance abuse issues and was a former smoker. He was awake, alert, and oriented in all 3 spheres. He had no difficulty telling me that he was at [facility]. He knew the month and date and the year. He explained that he lives at the [facility] here in [place] next to the [place] station. His short and his long-term memory appear to be intact, although he does have some intellectual disability. He does follow with case management services and Gabriela Crowe is his business case analyst at this time. His memory seemed to be intact and I believe he is competent to make informed healthcare decisions. He does not always take his medications, so I discussed with case management the idea of getting additional followup in his home to ensure that he does take his medications. Giovana Bonilla is the business case analyst and she will arrange through home health that he has 5-day week at least care to help him with his medications. He did spend some time at [facility], but does not want to return and does not want to go to assisted living, but would rather return home to his apartment. DIAGNOSES: 1. Major depressive disorder, severe, recurrent. 2. Personality disorder, not otherwise specified. 3. Intellectual disability, mild. RECOMMENDATIONS: 1. In my opinion, this patient is competent to make informed healthcare decisions. 2. All services will be established to help him and maintain his apartment and maintain his medications as prescribed. Thank you very much for this consult. [place], [place] REPORT OF CONSULTATION NAME: ISMAEL TOBIN UNIT #: [id number] ROOM: 311 DOCTOR: RADHA GUTHRIE ED.D (COCO) BIRTHDATE: [birth year] RDAHA GUTHRIE ED.D CM:CONSTR:REPORT OF CONSULTATION 1202 08/31/17 0204 interface
--- NOTE | ~2017-08-26 | PR ---
[place], [place] PROGRESS NOTE NAME: ISMAEL TOBIN UNIT #: [id number] ROOM: 311 DOCTOR: WILLIAM PENG MD BIRTHDATE: [birth year] DOS: 09/05/2017 PSYCHIATRIC PROGRESS NOTE SUBJECTIVE: The patient was seen and spoke with the staff. Per staff, the patient is taking his medications, still depressed. No behavior problems or issues. The patient was in the day area. He was sitting on the corner. He said that he still feels depressed, but not as bad as before. He reports good sleep and appetite and also talked about fleeting suicidal ideation, but no intent or plan. MENTAL STATUS EXAMINATION: Pleasant and cooperative. Described his mood as "down." Affect was flat, constricted. Thought process goal directed. No flight of ideas, loosening of association. He denied auditory or visual hallucination. No delusion or paranoia noted. He still had fleeting suicidal ideation, but no intent or plan. Denied any homicidal ideation, intent, or plan. Insight and judgment was poor to fair. PLAN: 1. Continue current medication and care. 2. Encourage activities and groups. 3. Continue 1:1 therapy, psychoeducation, and coping skill. WILLIAM PENG MD CM:PNTRANS [id number] WILLIAM PENG MD 09/06/17 0123 interface
--- NOTE | ~2017-08-26 | PR ---
[place], [place] PROGRESS NOTE NAME: ISMAEL TOBIN UNIT #: [id number] ROOM: 311 DOCTOR: SUE GANNON MD BIRTHDATE: [birth year] DOS: 09/06/2017 CHIEF COMPLAINT: "I am feeling a little better, thank you." SUMMARY OF THE VISIT: The patient was interviewed as he sat at the end of the hallway of the dining area. He engaged readily in conversation. He reports that he is feeling somewhat better. His sleep and appetite are normalizing. He is having more positive thoughts and having better energy and focus. He convincingly denies medication side effects. MENTAL STATUS: He is alert and oriented to person, place and time. Mood does seem to be strongly trending towards euthymia. Affect is much more appropriate. There is no valentin or hypomania noted. There are no auditory or visual hallucinations. No delusions, no paranoia. Short term memory has some minor gaps, but overall he is relatively fully intact. PLAN: I will maintain his current psychotropic regimen, continue to engage in individual and jara milieu activity with the plan to return to the least restrictive environment when psychiatrically stable. SUE GANNON MD CM:PNTRANS [phone] [id number] SUE GANNON MD 09/06/171920 interface
--- NOTE | ~2017-08-26 | WRIGHTHP ---
[place], [place] PATIENT HISTORY AND PHYSICAL EXAM [id number] UNIT #: [id number] ROOM: 312 DOCTOR: SUE GANNON MD BIRTHDATE: [birth year] DOS: 08/27/2017 CHIEF COMPLAINT: "I have just been feeling so depressed, I forgot to take my medicine." HISTORY OF PRESENT ILLNESS: This is a 62-year-old white male known to me from multiple admissions here to the [facility] unit as well as my previous practice at [place], [place]. The patient presented to the Emergency Room stating that he was increasingly depressed and suicidal with a plan. The patient per his report has been episodically noncompliant with all his medications both medical and psychiatric. He did state he did receive his Aristada injection last week, but the remainder of his meds he takes ____ because as he states "I forget." When asked if a case aide assist him with obtaining his medications, he did state yes, but nonetheless he forgets to take them once he is at home. He endorses multiple neurovegetative symptoms once again stating that he is not sleeping, not eating, not attending to his ADLs. He lacks energy and motivation and he is having fleeting suicidal thoughts. This has been problematic for the patient for sometime now. As he comes to the hospital, is stabilized, returns home and very quickly decompensates because of medication noncompliance. In between our psychiatric hospitalizations, he has had a plethora of medical hospitalizations because he is going into congestive heart failure or experiencing a plethora of other medical comorbidities because of his lack of compliance with care. At this point, he is admitted to re-stabilize on medication to engage in individual and jara milieu activity and to determine the least restrictive environment to which he can safely return. PAST MEDICAL HISTORY: Remarkable for congestive heart failure, chronic kidney disease stage 3, diabetes, COPD, folic acid deficiency, GERD, history of CVA, hypertension, hypothyroidism, iron deficiency anemia, hyperlipidemia, morbid obesity, sleep apnea, renal cyst, osteoarthritis, vitamin D deficiency. SOCIAL HISTORY: The patient is a former smoker. He does not drink alcohol or use illicit drugs. FAMILY HISTORY: Remarkable for diabetes and congestive heart failure. ALLERGIES: The patient lists no known allergies. STRENGTHS: Ambulatory, good verbal skills. WEAKNESSES: Poor decision making, poor coping skills, lack of insight. MENTAL STATUS: He is alert and oriented to person, place, and time. Mood is overwhelmingly depressed. Affect is flat, blunted, and constricted. He endorses multiple neurovegetative signs and symptoms. I see no hypomania or valentin. I see no auditory or visual hallucinations. He does report fleeting suicidal thoughts. Memory for the most part is intact. DIAGNOSES: Major depression, recurrent, severe; dysthymic disorder and personality disorder, not otherwise specified. [place], [place] PATIENT HISTORY AND PHYSICAL EXAM NAME: ISMAEL TOBIN UNIT #: [id number] ROOM: [facility] DOCTOR: SUE GANNON MD BIRTHDATE: [birth year] PLAN: We will attempt to restabilize him on Abilify, Aristada and Remeron. I will have psychology evaluate him for possible competency issues. While he is alert and oriented, I feel that he lacks judgment and insight and is on a slow path to self destruction. If he can be deemed incompetent and in need of a guardian, I do believe placement to a long-term care facility is warranted. He did extremely well when he was placed at [facility] and was in his best physical and psychiatric health in some time. We will engage him as much as we can in individual and jara milieu activity with the plan then to discharge to the least restrictive environment. SUE GANNON MD CM:HISPHYS:PATIENT HISTORY AND PHYSICAL EXAMINATION [phone] SUE GANNON MD 08/27/17 1013 interface
--- NOTE | ~2017-08-26 | PR ---
[place], [place] PROGRESS NOTE NAME: ISMAEL TOBIN UNIT #: [id number] ROOM: 311 DOCTOR: SUE GANNON MD BIRTHDATE: [birth year] DOS: 09/03/2017 CHIEF COMPLAINT: "I think I feel a little better." SUMMARY OF THE VISIT: The patient was interviewed as he sat in the dining area waiting for breakfast. He did report to me that he does feel a little bit better than he did on admission. The Provigil is helping his focus and giving him a little bit more drive during the day. He did sleep well. He still appears depressed and is rather blunted. He convincingly denies any medication side effects and notes no sedation, somnolence, dizziness or lightheadedness. MENTAL STATUS: He remains alert and oriented with some mild time gaps. Mood does seem to be beginning to trend towards euthymia. Affect is more appropriate. There is no valentin or hypomania. There are no overt auditory or visual hallucinations. No delusions or paranoia are present. Short-term memory has just mild gaps, otherwise he is fully intact. ASSESSMENT AND PLAN: I will maintain his current psychotropic regimen at this point, which includes Remeron 45 mg at bedtime, Wellbutrin-XL 450 mg in the morning, Abilify 30 mg at bedtime, Provigil 20 mg daily and he gets the Aristada injection 882 mg monthly. Engage in individual and jara milieu activities with the plan to return home or to the least restrictive environment when psychiatrically stable. SUE GANNON MD CM:PNTRANS [phone] SUE GANNON MD 09/03/17 1340 interface
--- NOTE | ~2017-08-26 | PR ---
[place], [place] PROGRESS NOTE NAME: ISMAEL TOBIN UNIT #: [id number] ROOM: 311 DOCTOR: WILLIAM PENG MD BIRTHDATE: [birth year] DOS: 09/03/2017 SUBJECTIVE: The patient seen and spoke with the staff. Per staff, the patient is doing well. No behavior problems or issues, med compliant. Good sleep and appetite. The patient was pleasant and cooperative. He states that he is doing okay, still feels sad and down at times with fleeting suicidal ideation. He denied any side effect from the medication. MENTAL STATUS EXAMINATION: Pleasant, cooperative, described his mood as "okay." Affect was flat, constricted. Thought process goal directed. No flight of ideas, loosening of association. He had fleeting suicidal ideation, but no intent or plan. Denied any homicidal ideation, intent or plan. Insight and judgment poor to fair. PLAN: 1. Continue current medication and care. 2. Continue redirection. 3. Supportive care. 4. Encourage activity in groups. WILLIAM PENG MD CM:PNTRANS [id number] WILLIAM PENG MD 09/05/17 1622 interface
[2017-08-26 16:26] VITALS: BP 106/60
[2017-08-26 17:01] VITALS: BP 106/60
[2017-08-26 19:31] VITALS: BP 145/85
[2017-08-27 07:34] VITALS: BP 150/80
[2017-08-27 08:44] LABS: VITAMIN D, 25-HYDROXY 19.4 ng/mL (30-100)
[2017-08-27 12:39] LABS: POTASSIUM 3.8 mmol/L (3.5-5.1)
[2017-08-27 12:40] LABS: CREATININE 1.54 mg/dL (0.70-1.30)
[2017-08-27 19:21] VITALS: BP 120/64
[2017-08-28 05:58] LABS: BUN 14 mg/dl (7-24); CHLORIDE 105 mmol/L (98-107); CREATININE 1.34 mg/dL (0.70-1.30); POTASSIUM 4.1 mmol/L (3.5-5.1); SODIUM 141 mmol/L (136-145)
[2017-08-28 07:40] VITALS: BP 158/87
[2017-08-28 20:10] VITALS: BP 117/72
[2017-08-29 06:03] LABS: BUN 15 mg/dl (7-24); CHLORIDE 104 mmol/L (98-107); CREATININE 1.44 mg/dL (0.70-1.30); POTASSIUM 3.8 mmol/L (3.5-5.1); SODIUM 141 mmol/L (136-145)
[2017-08-29 07:39] VITALS: BP 110/69
[2017-08-29 20:00] VITALS: BP 109/68
[2017-08-30 07:50] VITALS: BP 108/59
[2017-08-30 19:54] VITALS: BP 124/69
[2017-08-31 07:43] VITALS: BP 142/75
[2017-08-31 20:09] VITALS: BP 130/67
[2017-09-01 07:47] VITALS: BP 133/78
[2017-09-01 20:05] VITALS: BP 118/65
[2017-09-02 06:45] LABS: HEMATOCRIT 40.8 % (42.0-52.0); HEMOGLOBIN 12.3 g/dl (14.0-18.0); MEAN CELL VOLUME 90.7 fl (80.0-94.0); MEAN CORPUSCULAR HGB 27.3 pg (27.0-31.0); MEAN CORPUSCULAR HGB CONC 30.1 g/dl (33.0-37.0); MEAN PLATELET VOLUME 12.6 fl (9.6-12.3); PLATELET COUNT AUTOMATED 187 10*3/uL (130-400); RED CELL DISTRI WIDTH 15.9 % (0-14.5); WHITE BLOOD COUNT 12.4 10*3/uL (4.8-10.8)
[2017-09-02 06:50] LABS: BUN 17 mg/dl (7-24); CHLORIDE 104 mmol/L (98-107); CREATININE 1.39 mg/dL (0.70-1.30); POTASSIUM 4.4 mmol/L (3.5-5.1); SODIUM 138 mmol/L (136-145)
[2017-09-02 07:20] VITALS: BP 119/69
[2017-09-02 07:40] LABS: TOTAL CELLS COUNTED 100 #CELLS
[2017-09-02 07:41] LABS: PLATELET SUFFICIENCY NORMAL (NORMAL)
[2017-09-02 20:00] VITALS: BP 124/75
[2017-09-03 08:08] VITALS: BP 124/74
[2017-09-03 19:41] VITALS: BP 118/68
[2017-09-04 07:42] VITALS: BP 126/69
[2017-09-04 20:08] VITALS: BP 118/70
[2017-09-05 07:27] VITALS: BP 116/61
[2017-09-05 20:41] VITALS: BP 141/73
[2017-09-06 07:49] VITALS: BP 118/72
[2017-09-06 20:07] VITALS: BP 126/70
[2017-09-07 07:53] VITALS: BP 153/77
[2017-09-07 20:02] VITALS: BP 150/70
[2017-09-08 08:09] VITALS: BP 123/78
[2017-09-08] MEDS ORDERED: ARISTADA882 MG/3.2 IM (10:42)
[2017-09-08] MEDS ORDERED: BUDEPRION XL150 MG PO (10:42)
[2017-09-08] MEDS ORDERED: ARIPIPRAZOLE15 MG PO (10:42)
[2017-09-08] MEDS ORDERED: MIRTAZAPINE45 MG PO (10:42)
== END 2017-09-08 13:30 | DRG 885 ==
LOC: 3N 15:08
PROVIDERS: Internal Medicine; Psychiatry & Neurology Psychiatry
DX: F31.30 Bipolar disorder, current episode depressed, mild or moderate severity, unspecified (principal); E11.22 Type 2 diabetes mellitus with diabetic chronic kidney disease; I50.32 Chronic diastolic (congestive) heart failure; I13.0 Hypertensive heart and chronic kidney disease with heart failure and stage 1 through stage 4 chronic kidney disease, or unspecified chronic kidney disease; R45.851 Suicidal ideations; Z68.42 Body mass index [BMI] 45.0-49.9, adult; F34.1 Dysthymic disorder; F60.9 Personality disorder, unspecified; K21.9 Gastro-esophageal reflux disease without esophagitis; N18.3 Chronic kidney disease, stage 3 (moderate); E66.01 Morbid (severe) obesity due to excess calories; M19.90 Unspecified osteoarthritis, unspecified site; D72.829 Elevated white blood cell count, unspecified; D64.9 Anemia, unspecified; E78.2 Mixed hyperlipidemia; E53.8 Deficiency of other specified B group vitamins; J43.9 Emphysema, unspecified; F29 Unspecified psychosis not due to a substance or known physiological condition; E89.0 Postprocedural hypothyroidism; Z86.73 Personal history of transient ischemic attack (TIA), and cerebral infarction without residual deficits; Z87.891 Personal history of nicotine dependence; Z82.49 Family history of ischemic heart disease and other diseases of the circulatory system; Z83.3 Family history of diabetes mellitus; Z91.14 Patient's other noncompliance with medication regimen; Z79.899 Other long term (current) drug therapy

== ENCOUNTER 2018-03-10 21:22 | Inpatient (IN) | payer MEDICARE ==
[2018-03-10] VITALS (7 sets, daily range): BP systolic 99–121; BP diastolic 52–74
--- NOTE | ~2018-03-10 | EKG ---
[place], [place] ELECTROCARDIOGRAM REPORT NAME: ISMAEL TOBIN UNIT #: [id number] ROOM: 404 DOCTOR: BRI DRAFT REPORT BIRTHDATE: [birth year] [facility] Test Date: 2018-03-11 Test Time: 00:27:42 Pat Name: ISMAEL TOBIN Department: Room: 404 Gender: M Clinical Project Leader: Mouna Driver : 1955 Requested By: CATALINO LALA Order Number: [id number] Reading MD: Shady Garber MD Measurements Intervals [place] Rate: 87 P: 48 NH: 171 QRS: 18 QRSD: 98 T: 35 QT: 359 QTc: 432 Interpretive Statements Sinus rhythm Probable left atrial enlargement Low voltage, precordial leads Consider anterior infarct Artifact in lead(s) I,III,aVL,V1 and baseline wander in lead(s) V1 Electronically Signed On 03-11-2018 15:59:26 PST by Shady Garber MD CM:EKGRPT:ELECTROCARDIOGRAM REPORT 0027 1559 CATALINO BISWAS DRAFT REPORT CATALINO LALA DO
--- NOTE | ~2018-03-10 | EKG ---
[place], [place] ELECTROCARDIOGRAM REPORT NAME: ISMAEL TOBIN UNIT #: [id number] ROOM: 404 DOCTOR: BRI DRAFT REPORT BIRTHDATE: [birth year] [facility] Test Date: 2018-03-11 Test Time: 03:35:50 Pat Name: ISMAEL TOBIN Department: Room: 404 Gender: M [employer] Consultant: Mouna Driver : 1955 Requested By: CATALINO LALA Order Number: [id number] Reading MD: Shady aGrber MD Measurements Intervals [place] Rate: 87 P: 43 FL: 174 QRS: 31 QRSD: 94 T: 50 QT: 355 QTc: 427 Interpretive Statements Sinus rhythm Low voltage, precordial leads Probable anteroseptal infarct, old Electronically Signed On 03-11-2018 16:01:20 PST by Shady Garber MD CM:EKGRPT:ELECTROCARDIOGRAM REPORT 0335 1601 CATALINO BISWAS DRAFT REPORT CATALINO LALA DO
--- NOTE | ~2018-03-10 | EKG ---
[place], [place] ELECTROCARDIOGRAM REPORT NAME: ISMAEL TOBIN UNIT #: [id number] ROOM: 404 DOCTOR: BRI DRAFT REPORT BIRTHDATE: [address] [facility] Test Date: 2018-03-10 Test Time: 21:25:31 Pat Name: ISMAEL TOBIN Department: Room: 404 Gender: M Differential Specialist: Marilin Vergara : 1955 Requested By: CATALINO LALA Order Number: [id number] Reading MD: Shady Garber MD Measurements Intervals [place] Rate: 95 P: 51 NH: 171 QRS: 28 QRSD: 93 T: 51 QT: 341 QTc: 429 Interpretive Statements Sinus rhythm Low voltage, precordial leads Probable anteroseptal infarct, old Baseline wander in lead(s) V1,V4 Electronically Signed On 03-11-2018 15:58:49 PST by Shady Garber MD CM:EKGRPT:ELECTROCARDIOGRAM REPORT 24 1558 CATALINO BISWAS DRAFT REPORT CATALINO LALA DO
[~2018-03-10 21:22] MED LIST changes: +ARIPIPRAZOLE15 MG PO; +MIRTAZAPINE45 MG PO
--- NOTE | 2018-03-10 21:37 | NUR ---
PT UNSURE OF HIS MEDICATIONS.
[2018-03-10 21:39] LABS: BASO # 0.1 10*3/uL (0.0-0.1); BASO % 0.5 % (0.0-1.0); EOS # 0.4 10*3/uL (0.0-0.4); EOS % 2.2 % (1.0-4.0); HEMATOCRIT 42.6 % (42.0-52.0); HEMOGLOBIN 13.9 g/dl (14.0-18.0); LYMPH # 2.2 10*3/uL (1.3-4.4); LYMPH % 13.3 % (27.0-41.0); MEAN CORPUSCULAR HGB 27.7 pg (27.0-31.0); MEAN CORPUSCULAR HGB CONC 32.6 g/dl (33.0-37.0); MEAN PLATELET VOLUME 11.3 fl (9.6-12.3); MONO # 1.2 10*3/uL (0.1-1.0); NEUT # 12.6 10*3/uL (2.3-7.9); NEUT % 76.5 % (47.0-73.0); PLATELET COUNT AUTOMATED 254 10*3/uL (130-400); RED BLOOD COUNT 5.01 10*6/uL (4.50-5.90); RED CELL DISTRI WIDTH 15.4 % (0-14.5); WHITE BLOOD COUNT 16.5 10*3/uL (4.8-10.8)
--- NOTE | 2018-03-10 21:53 | NUR ---
PT MEDICATED WITH 1 NITROSTAT TAB SL.BP 115/62.HR 90
--- NOTE | 2018-03-10 21:58 | NUR ---
BP 99/52.HR93.PT STATES PAIN IS NOW 310.
--- NOTE | 2018-03-10 22:04 | NUR ---
PT REPORTS HX OF BEDBUGS.PT HAS RASH TO BILATERAL LOWER EXTREMITIES AND UPPER ARMS.NO SIGNS BEDBUGS NOTED AT THIS TIME.
--- NOTE | 2018-03-10 22:05 | NUR ---
PT BELONGINGS OF JEANS,SHOES,SHIRT,BELT,SUSPENDERS,JACKET AND WALLET PLACED IN BELONGINGS BAGS AT BEDSIDE.PT HAS CELL PHONE WITH HIM AND GLASSES.
[2018-03-10 22:37] LABS: ALBUMIN 3.2 gm/dl (3.1-4.5); ALKALINE PHOSPHATASE 93 U/L (45-117); BUN 20 mg/dl (7-24); CHLORIDE 105 mmol/L (98-107); CREATININE 1.24 mg/dL (0.70-1.30); POTASSIUM 4.6 mmol/L (3.5-5.1); SGOT/AST 17 IU/L (3-35); SGPT/ALT 26 U/L (12-78); SODIUM 136 mmol/L (136-145); TOTAL PROTEIN 7.9 gm/dL (6.4-8.2)
[2018-03-10 22:38] LABS: TROPONIN I < 0.015 ng/ml (<0.045)
--- NOTE | 2018-03-10 22:39 | NUR ---
PT PROMPTED FOR URINE SPECIMEN.
--- NOTE | 2018-03-10 22:53 | NUR ---
PT STATES HE IS UNABLE TO PROVIDE URINE SPECIMEN AT THIS TIME.BEDSIDE URINAL PROVIDED AT THIS TIME.
[2018-03-10 22:56] LABS: ACT PARTIAL THROMBO TIME 24.4 SECONDS (20.8-31.5)
[2018-03-11] VITALS: BP 145/76
--- NOTE | 2018-03-11 00:05 | NUR ---
PT REPORTS PAIN STILL 05/01.PT MEDICATED PER EMAR WITH LASIX.PT REPORTS STILL UNABLE TO PROVIDE URINE SPECIMEN AT THIS TIME.
[2018-03-11 00:36] VITALS: BP 107/67
[2018-03-11 00:45] VITALS: BP 128/71
--- NOTE | 2018-03-11 00:45 | NUR ---
A 62, admitted to , under the services of MAYCO Holliday DO with a diagnosis of CHEST PAIN. Chief complaint is SHORTNESS OF BREATH. CHEST PAIN AND PRESSURE. Patient arrived via stretcher from ER. Monitor applied. Initial assessment completed. Vital signs taken and recorded. MAYCO HOLLIDAY DO notified of admission to the unit. Orders received. See assessment for past medical history, medications and allergies. Patient and/or family oriented to unit. [facility] visitation policy reviewed. Clothing/patient valuable form completed. JANINA CREWS
[2018-03-11 00:51] LABS: BILIRUBIN NEGATIVE (NEGATIVE); BLOOD NEGATIVE (NEGATIVE); CLARITY SL CLOUDY (CLEAR); COLOR YELLOW (YELLOW); GLUCOSE NEGATIVE (NEGATIVE); KETONE NEGATIVE (NEGATIVE); LEUKO ESTERASE NEGATIVE (NEGATIVE); NITRITE NEGATIVE (NEGATIVE); SPECIFIC GRAVITY 1.015 (1.005-1.030); UROBILINOGEN 0.2 E.U./dl (0.2-1.0)
--- NOTE | 2018-03-11 01:15 | NUR ---
PATIENT STATES HE [facility] ; BUT IS UNSURE OF MEDS AND DOSES.
[2018-03-11 03:43] LABS: BASO # 0.1 10*3/uL (0.0-0.1); BASO % 0.4 % (0.0-1.0); EOS # 0.4 10*3/uL (0.0-0.4); EOS % 2.4 % (1.0-4.0); HEMATOCRIT 41.2 % (42.0-52.0); HEMOGLOBIN 13.1 g/dl (14.0-18.0); LYMPH # 2.2 10*3/uL (1.3-4.4); LYMPH % 12.9 % (27.0-41.0); MEAN CELL VOLUME 84.9 fl (80.0-94.0); MEAN CORPUSCULAR HGB CONC 31.8 g/dl (33.0-37.0); MEAN PLATELET VOLUME 11.1 fl (9.6-12.3); MONO % 5.9 % (3.0-9.0); NEUT # 13.1 10*3/uL (2.3-7.9); NEUT % 77.8 % (47.0-73.0); PLATELET COUNT AUTOMATED 261 10*3/uL (130-400); RED BLOOD COUNT 4.85 10*6/uL (4.50-5.90); RED CELL DISTRI WIDTH 15.2 % (0-14.5); WHITE BLOOD COUNT 16.9 10*3/uL (4.8-10.8)
[2018-03-11 03:55] LABS: ACT PARTIAL THROMBO TIME 24.5 SECONDS (20.8-31.5)
[2018-03-11 04:00] LABS: ALBUMIN 3.1 gm/dl (3.1-4.5); ALKALINE PHOSPHATASE 86 U/L (45-117); BUN 20 mg/dl (7-24); CHLORIDE 104 mmol/L (98-107); CHOLESTEROL 147 mg/dL (<200); HDL CHOLESTEROL 39 mg/dl (40-60); LDL CHOLESTEROL 89 mg/dL (9-159); PHOSPHOROUS 4.2 mg/dL (2.5-4.9); POTASSIUM 4.3 mmol/L (3.5-5.1); SGOT/AST 14 IU/L (3-35); SGPT/ALT 25 U/L (12-78); SODIUM 137 mmol/L (136-145); TOTAL PROTEIN 7.7 gm/dL (6.4-8.2); TRIGLYCERIDES 94 mg/dl (<150); VLDL CHOLESTEROL 19 mg/dL (6-40)
[2018-03-11 04:02] LABS: FREE T4 1.75 ng/dl (0.76-1.46)
[2018-03-11 04:11] LABS: THYROID STIM HORMONE (HS) < 0.005 uIU/ml (0.358-4.75)
[2018-03-11 06:59] LABS: VITAMIN D, 25-HYDROXY 41.2 ng/mL (30-100)
--- NOTE | 2018-03-11 09:08 | NUR ---
CONSULT INFO CALLED TO DR PANDEY'S OFFICE.
--- NOTE | 2018-03-11 11:00 | NUR ---
INFORMED SIGNED CONSENT OBTAINED FOR LEXISCAN STRESS TEST WITH DR ALEXANDER. RESTING EKG NSR HR 92 Q WAVE UB -V2 BP 124/78. POX 97% LUNGS CLEAR. PT COMPLETED ONE MINUTE OF A LEXISCAN PROTOCOL WITH PT RECEIVING LEXISCAN 0.4MG IV OVER 10 SECONDS. RARE PVC NOTED NO ST CHANGES SEEN. PT HAD NO SYMPTOMS, LAST RECOVERY HR OF 95 BP 102/68. PT IN STABLE CONDITION, AWAITING NUCLEAR IMAGES.
[2018-03-11] MEDS ORDERED: ZESTRIL,PRINIVIL5 MG PO (11:04)
[2018-03-11] MEDS ORDERED: ROZEREM8 MG PO (11:05)
[2018-03-11] MEDS ORDERED: FETZIMA120 M1 PO (11:05)
--- NOTE | 2018-03-11 11:06 | NUR ---
MEDS VERIFIED WITH [facility]. DR SAHA NOTIFIED.
[2018-03-11 12:00] VITALS: BP 129/67
[2018-03-11 16:00] VITALS: BP 109/55
--- NOTE | 2018-03-11 18:15 | NUR ---
Discharge instructions reviewed with patient/family. Patient receptive and verbalizes understanding. Follow-up care arranged. Written instructions given to patient/family. KIERAN MANUEL
--- NOTE | 2018-03-11 18:30 | NUR ---
LOCK BOX ITEM RETURNED.
[2018-05-23] MEDS ORDERED: PEPCID20 MG PO (22:09)
== END 2018-03-11 18:15 | disposition home or self-care (01) | DRG 291 ==
LOC: ED 21:22 → EDHOLD 03-11 00:24 → 4E 03-11 00:24
PROVIDERS: Family Medicine; Nurse Practitioner; Student in an Organized Health Care Education/Training Program; ADMIT Internal Medicine
PROC: 3E073KZ Introduction of Other Diagnostic Substance into Coronary Artery, Percutaneous Approach (ICD-10-PCS; principal; 2018-03-11)
PROC: 4A02XM4 Measurement of Cardiac Total Activity, External Approach (ICD-10-PCS; principal; 2018-03-11)
DX: I13.0 Hypertensive heart and chronic kidney disease with heart failure and stage 1 through stage 4 chronic kidney disease, or unspecified chronic kidney disease (principal); I50.33 Acute on chronic diastolic (congestive) heart failure; R65.10 Systemic inflammatory response syndrome (SIRS) of non-infectious origin without acute organ dysfunction; E87.2 Acidosis; Z68.41 Body mass index [BMI] 40.0-44.9, adult; Z86.73 Personal history of transient ischemic attack (TIA), and cerebral infarction without residual deficits; E11.22 Type 2 diabetes mellitus with diabetic chronic kidney disease; E78.5 Hyperlipidemia, unspecified; E66.01 Morbid (severe) obesity due to excess calories; K21.9 Gastro-esophageal reflux disease without esophagitis; E89.0 Postprocedural hypothyroidism; N18.3 Chronic kidney disease, stage 3 (moderate); J43.9 Emphysema, unspecified; F32.9 Major depressive disorder, single episode, unspecified; E78.2 Mixed hyperlipidemia; M19.90 Unspecified osteoarthritis, unspecified site; D64.9 Anemia, unspecified; E55.9 Vitamin D deficiency, unspecified; Z87.891 Personal history of nicotine dependence; Z83.3 Family history of diabetes mellitus; Z82.49 Family history of ischemic heart disease and other diseases of the circulatory system

== ENCOUNTER 2018-03-17 15:22 | Emergency (ER) | payer MEDICARE ==
[~2018-03-17] VITALS: Ht 190.5 cm; Wt 167.8 kg
--- NOTE | ~2018-03-17 | EKG ---
[place], [place] ELECTROCARDIOGRAM REPORT NAME: ISMAEL TOBIN UNIT #: [id number] ROOM: DOCTOR: EPIPHANY DRAFT REPORT BIRTHDATE: [birth year] [facility] Test Date: 2018-03-17 Test Time: 16:10:06 Pat Name: ISMAEL TOBIN Department: Room: Gender: Injection Molding Machine Setter: Marilin Vergara : 1955 Requested By: EMMANUEL MASTERS Order Number: [id number] Reading MD: Say Marquez MD Measurements Intervals [place] Rate: 84 P: 28 NV: 176 QRS: 7 QRSD: 97 T: 49 QT: 355 QTc: 420 Interpretive Statements Sinus rhythm Low voltage, precordial leads Poor precordial R-wave progression Compared to ECG 03/11/2018 03:35:50 No significant changes Electronically Signed On 03-17-2018 19:25:44 PST by Say Marquez MD CM:EKGRPT:ELECTROCARDIOGRAM REPORT 1610 24 EMMANUEL MERIDA APRN-CAMERON EPIPHANY DRAFT REPORT EMMANUEL MERIDA APRN-CAMERON
[~2018-03-17 15:22] MED LIST changes: +ZESTRIL,PRINIVIL5 MG PO
[2018-03-17 16:22] LABS: BASO # 0.1 10*3/uL (0.0-0.1); BASO % 0.5 % (0.0-1.0); EOS # 0.2 10*3/uL (0.0-0.4); EOS % 1.9 % (1.0-4.0); HEMATOCRIT 43.2 % (42.0-52.0); HEMOGLOBIN 13.5 g/dl (14.0-18.0); LYMPH # 1.3 10*3/uL (1.3-4.4); LYMPH % 11.2 % (27.0-41.0); MEAN CELL VOLUME 86.7 fl (80.0-94.0); MEAN CORPUSCULAR HGB 27.1 pg (27.0-31.0); MEAN CORPUSCULAR HGB CONC 31.3 g/dl (33.0-37.0); MEAN PLATELET VOLUME 10.9 fl (9.6-12.3); MONO # 0.7 10*3/uL (0.1-1.0); MONO % 6.2 % (3.0-9.0); NEUT # 8.9 10*3/uL (2.3-7.9); NEUT % 79.8 % (47.0-73.0); PLATELET COUNT AUTOMATED 247 10*3/uL (130-400); RED BLOOD COUNT 4.98 10*6/uL (4.50-5.90); RED CELL DISTRI WIDTH 15.4 % (0-14.5); WHITE BLOOD COUNT 11.1 10*3/uL (4.8-10.8)
[2018-03-17 16:47] LABS: ALBUMIN 2.9 gm/dl (3.1-4.5); ALKALINE PHOSPHATASE 101 U/L (45-117); BUN 14 mg/dl (7-24); CHLORIDE 110 mmol/L (98-107); CREATININE 1.23 mg/dL (0.70-1.30); LIPASE 220 U/L (73-393); POTASSIUM 4.3 mmol/L (3.5-5.1); SGOT/AST 17 IU/L (3-35); SGPT/ALT 23 U/L (12-78); SODIUM 140 mmol/L (136-145); TOTAL PROTEIN 7.9 gm/dL (6.4-8.2)
== END 2018-03-17 19:30 | disposition home or self-care (01) ==
LOC: ED 15:22
PROVIDERS: Nurse Practitioner Family
DX: A08.4 Viral intestinal infection, unspecified (principal); I13.0 Hypertensive heart and chronic kidney disease with heart failure and stage 1 through stage 4 chronic kidney disease, or unspecified chronic kidney disease; E11.22 Type 2 diabetes mellitus with diabetic chronic kidney disease; N18.3 Chronic kidney disease, stage 3 (moderate); I50.32 Chronic diastolic (congestive) heart failure; K21.9 Gastro-esophageal reflux disease without esophagitis; E66.01 Morbid (severe) obesity due to excess calories; M19.90 Unspecified osteoarthritis, unspecified site; E03.9 Hypothyroidism, unspecified; E78.2 Mixed hyperlipidemia; Z79.899 Other long term (current) drug therapy; Z86.72 Personal history of thrombophlebitis

== ENCOUNTER 2018-03-21 20:04 | Emergency (ER) | payer MEDICARE ==
[~2018-03-21] VITALS: Ht 187.9 cm; Wt 162.8 kg
[2018-03-21 20:37] LABS: BASO # 0.1 10*3/uL (0.0-0.1); BASO % 0.5 % (0.0-1.0); EOS # 0.3 10*3/uL (0.0-0.4); EOS % 1.5 % (1.0-4.0); HEMATOCRIT 42.4 % (42.0-52.0); HEMOGLOBIN 13.7 g/dl (14.0-18.0); LYMPH # 1.8 10*3/uL (1.3-4.4); LYMPH % 10.9 % (27.0-41.0); MEAN CELL VOLUME 85.1 fl (80.0-94.0); MEAN CORPUSCULAR HGB 27.5 pg (27.0-31.0); MEAN CORPUSCULAR HGB CONC 32.3 g/dl (33.0-37.0); MONO # 0.9 10*3/uL (0.1-1.0); MONO % 5.5 % (3.0-9.0); NEUT # 13.2 10*3/uL (2.3-7.9); NEUT % 81.1 % (47.0-73.0); PLATELET COUNT AUTOMATED 297 10*3/uL (130-400); RED BLOOD COUNT 4.98 10*6/uL (4.50-5.90); RED CELL DISTRI WIDTH 15.5 % (0-14.5); WHITE BLOOD COUNT 16.3 10*3/uL (4.8-10.8)
[2018-03-21 20:51] LABS: ALKALINE PHOSPHATASE 98 U/L (45-117); BUN 21 mg/dl (7-24); CHLORIDE 104 mmol/L (98-107); CREATININE 1.39 mg/dL (0.70-1.30); LIPASE 215 U/L (73-393); SGOT/AST 15 IU/L (3-35); SGPT/ALT 28 U/L (12-78); SODIUM 137 mmol/L (136-145); TOTAL PROTEIN 8.3 gm/dL (6.4-8.2)
[2018-03-21 20:52] LABS: BILIRUBIN NEGATIVE (NEGATIVE); BLOOD NEGATIVE (NEGATIVE); CLARITY CLEAR (CLEAR); COLOR YELLOW (YELLOW); GLUCOSE NEGATIVE (NEGATIVE); KETONE NEGATIVE (NEGATIVE); LEUKO ESTERASE NEGATIVE (NEGATIVE); NITRITE NEGATIVE (NEGATIVE); SPECIFIC GRAVITY 1.015 (1.005-1.030); UROBILINOGEN 0.2 E.U./dl (0.2-1.0)
[2018-03-21 20:58] LABS: BACTERIA 1+; EPITHELIAL CELLS 0-2; RBC 0-2 rbc/hpf (0-2)
== END 2018-03-21 23:20 | disposition home or self-care (01) ==
LOC: ED 20:04
PROVIDERS: Student in an Organized Health Care Education/Training Program
DX: R10.31 Right lower quadrant pain (principal); R11.0 Nausea; E11.22 Type 2 diabetes mellitus with diabetic chronic kidney disease; I13.0 Hypertensive heart and chronic kidney disease with heart failure and stage 1 through stage 4 chronic kidney disease, or unspecified chronic kidney disease; N18.3 Chronic kidney disease, stage 3 (moderate); I50.32 Chronic diastolic (congestive) heart failure; J43.9 Emphysema, unspecified; K21.9 Gastro-esophageal reflux disease without esophagitis; E03.9 Hypothyroidism, unspecified; E78.2 Mixed hyperlipidemia; E66.01 Morbid (severe) obesity due to excess calories; Z79.899 Other long term (current) drug therapy

== ENCOUNTER → 2018-03-21 | Outpatient (CLI) | payer MEDICARE | END | disposition home or self-care (01) | LOC: US 09:00 | DX: N28.1 Cyst of kidney, acquired (principal) ==

== ENCOUNTER 2018-04-07 15:29 | Emergency (ER) | payer MEDICARE ==
[2018-04-07 15:57] LABS: BASO # 0.1 10*3/uL (0.0-0.1); BASO % 0.7 % (0.0-1.0); EOS # 0.3 10*3/uL (0.0-0.4); HEMATOCRIT 43.8 % (42.0-52.0); LYMPH # 1.7 10*3/uL (1.3-4.4); LYMPH % 11.9 % (27.0-41.0); MEAN CELL VOLUME 85.5 fl (80.0-94.0); MEAN CORPUSCULAR HGB 27.3 pg (27.0-31.0); MEAN PLATELET VOLUME 10.9 fl (9.6-12.3); MONO # 1.1 10*3/uL (0.1-1.0); MONO % 7.2 % (3.0-9.0); NEUT # 11.4 10*3/uL (2.3-7.9); NEUT % 77.9 % (47.0-73.0); PLATELET COUNT AUTOMATED 307 10*3/uL (130-400); RED BLOOD COUNT 5.12 10*6/uL (4.50-5.90); RED CELL DISTRI WIDTH 15.3 % (0-14.5); WHITE BLOOD COUNT 14.7 10*3/uL (4.8-10.8)
[2018-04-07 16:05] LABS: ACT PARTIAL THROMBO TIME 24.2 SECONDS (20.8-31.5)
[2018-04-07 16:13] LABS: ALBUMIN 3.2 gm/dl (3.1-4.5); ALKALINE PHOSPHATASE 104 U/L (45-117); BUN 23 mg/dl (7-24); CHLORIDE 101 mmol/L (98-107); CREATININE 1.27 mg/dL (0.70-1.30); POTASSIUM 4.1 mmol/L (3.5-5.1); SGOT/AST 21 IU/L (3-35); SGPT/ALT 30 U/L (12-78); SODIUM 135 mmol/L (136-145)
[2018-04-07 16:17] LABS: ETHYL ALCOHOL < 3.0 mg/dl (<3)
[2018-04-07 16:21] LABS: THYROID STIM HORMONE (HS) < 0.005 uIU/ml (0.358-4.75)
[2018-04-07 16:33] LABS: BILIRUBIN NEGATIVE (NEGATIVE); BLOOD NEGATIVE (NEGATIVE); CLARITY CLEAR (CLEAR); COLOR YELLOW (YELLOW); GLUCOSE NEGATIVE (NEGATIVE); KETONE NEGATIVE (NEGATIVE); LEUKO ESTERASE NEGATIVE (NEGATIVE); NITRITE NEGATIVE (NEGATIVE); PH 5.5 (5.0-9.0); UROBILINOGEN 0.2 E.U./dl (0.2-1.0)
[2018-04-07 16:42] LABS: EPITHELIAL CELLS 0-2; WBC 0-2 wbc/hpf (0-5)
[2018-04-07 16:43] LABS: URINE AMPHETAMINES < 1000 (1000ng/ml); URINE BARBITURATES < 200 (200ng/ml); URINE BENZODIAZEPINES < 200 (200ng/ml); URINE CANNABINOIDS (THC) < 50 (50ng/ml); URINE COCAINE < 300 (300ng/ml); URINE METHADONE < 300 (300ng/ml); URINE OPIATES < 300 (300ng/ml)
[2018-04-07 16:46] LABS: URINE PHENCYCLIDINE < 25 (25ng/ml)
[2018-05-23] MEDS ORDERED: PEPCID20 MG PO (22:09)
== END 2018-04-07 21:05 | disposition home health service (06) ==
LOC: ED 15:29
PROVIDERS: Emergency Medicine
DX: F32.9 Major depressive disorder, single episode, unspecified (principal); R45.851 Suicidal ideations; I13.0 Hypertensive heart and chronic kidney disease with heart failure and stage 1 through stage 4 chronic kidney disease, or unspecified chronic kidney disease; E11.22 Type 2 diabetes mellitus with diabetic chronic kidney disease; N18.3 Chronic kidney disease, stage 3 (moderate); I50.9 Heart failure, unspecified; K21.9 Gastro-esophageal reflux disease without esophagitis; E03.9 Hypothyroidism, unspecified; E78.2 Mixed hyperlipidemia; E66.01 Morbid (severe) obesity due to excess calories; M19.90 Unspecified osteoarthritis, unspecified site; Z87.891 Personal history of nicotine dependence; Z98.890 Other specified postprocedural states; Z90.89 Acquired absence of other organs; Z79.899 Other long term (current) drug therapy; Z86.73 Personal history of transient ischemic attack (TIA), and cerebral infarction without residual deficits

== ENCOUNTER 2018-11-17 14:22 | Inpatient (IN) | payer MEDICARE ==
[~2018-11-17] VITALS: Ht 187.9 cm; Wt 171.9 kg
[~2018-11-17 14:22] MED LIST changes: +PEPCID20 MG PO
[2018-11-17 14:33] VITALS: BP 129/58
[2018-11-17 14:46] LABS: BASO # 0.1 10*3/uL (0.0-0.1); BASO % 0.6 % (0.0-1.0); EOS # 0.2 10*3/uL (0.0-0.4); EOS % 1.9 % (1.0-4.0); HEMATOCRIT 39.1 % (42.0-52.0); HEMOGLOBIN 12.3 g/dl (14.0-18.0); LYMPH # 1.6 10*3/uL (1.3-4.4); LYMPH % 13.8 % (27.0-41.0); MEAN CELL VOLUME 89.1 fl (80.0-94.0); MEAN CORPUSCULAR HGB CONC 31.5 g/dl (33.0-37.0); MEAN PLATELET VOLUME 11.3 fl (9.6-12.3); MONO # 0.6 10*3/uL (0.1-1.0); MONO % 5.1 % (3.0-9.0); NEUT % 77.9 % (47.0-73.0); PLATELET COUNT AUTOMATED 205 10*3/uL (130-400); RED BLOOD COUNT 4.39 10*6/uL (4.50-5.90); WHITE BLOOD COUNT 11.5 10*3/uL (4.8-10.8)
[2018-11-17 15:01] LABS: ACT PARTIAL THROMBO TIME 24.8 SECONDS (20.0-32.1); INTERNATIONAL NORM RATIO 0.9 (2.0-3.5)
[2018-11-17 15:02] LABS: ALKALINE PHOSPHATASE 96 U/L (45-117); BUN 19 mg/dl (7-24); CHLORIDE 105 mmol/L (98-107); CREATININE 1.22 mg/dL (0.70-1.30); POTASSIUM 4.1 mmol/L (3.5-5.1); SGOT/AST 12 IU/L (3-35); SGPT/ALT 22 U/L (12-78); SODIUM 135 mmol/L (136-145); TOTAL PROTEIN 7.9 gm/dL (6.4-8.2)
[2018-11-17 15:03] LABS: TROPONIN I < 0.015 ng/ml (<0.045)
[2018-11-17 16:19] VITALS: BP 123/57
[2018-11-17 20:55] VITALS: BP 125/73
--- NOTE | 2018-11-17 20:55 | NUR ---
A 63, admitted to , under the services of RODRIGO Elder DO with a diagnosis of ACUTE PNEUMONIA, CHF. Chief complaint is CHEST PAIN. Patient arrived via stretcher from ER. Monitor applied. Initial assessment completed. Vital signs taken and recorded. RODRIGO ELDER DO notified of admission to the unit. Orders received. See assessment for past medical history, medications and allergies. Patient and/or family oriented to unit. [facility] visitation policy reviewed. Clothing/patient valuable form completed. KIERAN SMITH
--- NOTE | 2018-11-17 21:46 | NUR ---
PATIENT MEDICATED WITH TYLENOL FOR C/O HEADAHCHE RATES 10/01. WILL CHECK EFFECTIVENESS
--- NOTE | 2018-11-17 21:48 | NUR ---
PATIENT GIVEN FLU SHOT AT THIS TIME IN THE RIGHT DELTOID. TOLERATED WELL. WILL CONTINUE TO MONITOR.
--- NOTE | 2018-11-17 22:30 | NUR ---
PATIENT DOES NOT KNOW THE MEDICATIONS HE TAKES, NOTIFIED DR. CHAMBERLAIN.
--- NOTE | 2018-11-17 23:00 | NUR ---
PER PATIENT TYLENOL EFFECTIVE. WILL CONTINUE TO MONITOR.
[2018-11-17] MEDS ORDERED: BUPROPION HCL300 MG PO (23:40)
[2018-11-17] MEDS ORDERED: OXCARBAZEPINE300 M1 PO (23:44)
[2018-11-17] MEDS ORDERED: ARIPIPRAZOLE5 MG PO (23:44)
[2018-11-17] MEDS ORDERED: LEVOTHYROXINE300 MCG PO (23:47)
[2018-11-17] MEDS ORDERED: DOCUSATE SOD100 MG PO (23:52)
[2018-11-17] MEDS ORDERED: FEROSUL325 MG PO (23:53)
[2018-11-17] MEDS ORDERED: TRAZODONE100 MG PO (23:56)
[2018-11-17] MEDS ORDERED: METOCLOPRAMIDE10 M1 PO (23:57)
[2018-11-17] MEDS ORDERED: MIRTAZAPINE45 MG PO (23:57)
[2018-11-18] VITALS: BP 124/54
--- NOTE | 2018-11-18 03:57 | NUR ---
PATIENT RESTING IN BED, SLEEPING. NO SIGNS OF DISTRESS. RESPIRATIONS EASY, NON LABORED. HR 60S PER CM. BED IN LOWEST POSITION, CALL LIGHT WITHIN REACH. WILL CONTINUE TO MONITOR.
[2018-11-18 06:29] LABS: BASO # 0.1 10*3/uL (0.0-0.1); BASO % 0.7 % (0.0-1.0); EOS # 0.3 10*3/uL (0.0-0.4); EOS % 2.4 % (1.0-4.0); HEMATOCRIT 40.3 % (42.0-52.0); HEMOGLOBIN 12.6 g/dl (14.0-18.0); LYMPH # 1.8 10*3/uL (1.3-4.4); LYMPH % 15.7 % (27.0-41.0); MEAN CELL VOLUME 88.8 fl (80.0-94.0); MEAN CORPUSCULAR HGB 27.8 pg (27.0-31.0); MEAN CORPUSCULAR HGB CONC 31.3 g/dl (33.0-37.0); MEAN PLATELET VOLUME 11.5 fl (9.6-12.3); MONO # 0.8 10*3/uL (0.1-1.0); MONO % 6.4 % (3.0-9.0); NEUT # 8.7 10*3/uL (2.3-7.9); NEUT % 74.3 % (47.0-73.0); PLATELET COUNT AUTOMATED 194 10*3/uL (130-400); RED BLOOD COUNT 4.54 10*6/uL (4.50-5.90); RED CELL DISTRI WIDTH 15.9 % (0-14.5); WHITE BLOOD COUNT 11.7 10*3/uL (4.8-10.8)
[2018-11-18 06:58] LABS: ALKALINE PHOSPHATASE 83 U/L (45-117); BUN 19 mg/dl (7-24); CHLORIDE 104 mmol/L (98-107); CHOLESTEROL 159 mg/dL (<200); CREATININE 1.25 mg/dL (0.70-1.30); FREE T4 0.58 ng/dl (0.76-1.46); HDL CHOLESTEROL 36 mg/dl (40-60); LDL CHOLESTEROL 92 mg/dL (9-159); PHOSPHOROUS 3.9 mg/dL (2.5-4.9); POTASSIUM 3.9 mmol/L (3.5-5.1); SGOT/AST 17 IU/L (3-35); SGPT/ALT 20 U/L (12-78); SODIUM 137 mmol/L (136-145); TOTAL PROTEIN 7.9 gm/dL (6.4-8.2); TRIGLYCERIDES 155 mg/dl (<150); VLDL CHOLESTEROL 31 mg/dL (6-40)
[2018-11-18 07:01] LABS: ACT PARTIAL THROMBO TIME 26.9 SECONDS (20.0-32.1)
--- NOTE | 2018-11-18 07:16 | NUR ---
NOTIFIED CARDIOLOGY'S ANSWERING SERVICE OF NEW CONSULT.
[2018-11-18 07:35] LABS: VITAMIN D, 25-HYDROXY 26.7 ng/mL (30-100)
[2018-11-18 08:00] VITALS: BP 140/76
--- NOTE | 2018-11-18 09:00 | NUR ---
Silk Worker in to talk to patient. Patient states lives at home with alone. There are no steps in the home. Physician: hipolito villar [facility]: [facility] Patient's level of ADLs: MINIMAL ASSIST Patient has working utilities: all working DME: home oxygen he wears at hs, cane, walker Follow-up physician's appointment after d/c: will be made by hospitalist nurse director upon discharge Does patient want to access PORTAL?: no Discharge plan discussed with patient, he states he lives at home alone, is independent in adls and ambulation, uses a cane or walker occasionally, he states he has an aid from [facility] 3 days a week for 2 hours a day, he stated he would be returning home when able and denies any other home needs. ASHLEY OLSON
[2018-11-18] MEDS ORDERED: NATURE'S BLEND F1 MG PO (10:12)
[2018-11-18 12:00] VITALS: BP 140/73
[2018-11-18 16:00] VITALS: BP 125/76
[2018-11-18 20:00] VITALS: BP 114/74
[2018-11-19] VITALS: BP 113/56
--- NOTE | 2018-11-19 05:12 | NUR ---
DAUGHTER CALLED, UPDATED ON STATUS.
--- NOTE | 2018-11-19 06:02 | NUR ---
TOLERATED ROUTINE MEDS WEL WHOLE WITH WATER. NO COMPLAINTS VOICED. IV FOUND TO BE INFILTRATED DURING INITIAL FLUSH FOR IV LASIX. DISCONTINUED AT THIS TIME. WILL ATTEMPT TO ESTABLISH ANOTHER IV SITE.
[2018-11-19 06:13] LABS: BASO # 0.1 10*3/uL (0.0-0.1); BASO % 0.5 % (0.0-1.0); EOS # 0.3 10*3/uL (0.0-0.4); EOS % 1.9 % (1.0-4.0); HEMATOCRIT 41.5 % (42.0-52.0); HEMOGLOBIN 13.2 g/dl (14.0-18.0); LYMPH # 1.9 10*3/uL (1.3-4.4); LYMPH % 12.9 % (27.0-41.0); MEAN CELL VOLUME 87.2 fl (80.0-94.0); MEAN CORPUSCULAR HGB 27.7 pg (27.0-31.0); MEAN CORPUSCULAR HGB CONC 31.8 g/dl (33.0-37.0); MEAN PLATELET VOLUME 11.4 fl (9.6-12.3); MONO % 6.5 % (3.0-9.0); NEUT # 11.3 10*3/uL (2.3-7.9); NEUT % 77.4 % (47.0-73.0); PLATELET COUNT AUTOMATED 222 10*3/uL (130-400); RED BLOOD COUNT 4.76 10*6/uL (4.50-5.90); RED CELL DISTRI WIDTH 15.9 % (0-14.5); WHITE BLOOD COUNT 14.5 10*3/uL (4.8-10.8)
[2018-11-19 06:37] LABS: BUN 23 mg/dl (7-24); CHLORIDE 100 mmol/L (98-107); CREATININE 1.43 mg/dL (0.70-1.30); SODIUM 135 mmol/L (136-145)
[2018-11-19 08:00] VITALS: BP 111/71
--- NOTE | 2018-11-19 08:00 | NUR ---
BEDSIDE REPORT RECIEVED FROM ESE RN. PT AWAKE, ALERT AND ORIENTED. NO S/S OF DISTRESS OR SOB. WILL CONTINUE TO MONITOR.
--- NOTE | 2018-11-19 09:30 | NUR ---
IN TO ROOM. PATIENT AWAKE, ALERT AND ORIENTED. NO S/S OF DISTRESS OR SOB AT THIS TIME. PT COMPLAINS OF CHEST PAIN. DR. WALKER IN ROOM AND AWARE OF COMPLAINT. RESPIRATIONS EASY AND REGULAR. BED IN LOWEST LOCKED POSITION AND CALL LIGHT WITHIN REACH.
[2018-11-19 12:00] VITALS: BP 110/68
[2018-11-19 16:00] VITALS: BP 116/68
[2018-11-19 20:00] VITALS: BP 121/71
[2018-11-20] VITALS: BP 110/56
[2018-11-20 05:46] LABS: CREATININE 1.53 mg/dL (0.70-1.30); POTASSIUM 3.8 mmol/L (3.5-5.1)
[2018-11-20 06:00] LABS: BASO # 0.1 10*3/uL (0.0-0.1); BASO % 0.5 % (0.0-1.0); EOS # 0.3 10*3/uL (0.0-0.4); HEMATOCRIT 43.2 % (42.0-52.0); HEMOGLOBIN 13.5 g/dl (14.0-18.0); LYMPH % 13.6 % (27.0-41.0); MEAN CELL VOLUME 87.8 fl (80.0-94.0); MEAN CORPUSCULAR HGB 27.4 pg (27.0-31.0); MEAN CORPUSCULAR HGB CONC 31.3 g/dl (33.0-37.0); MEAN PLATELET VOLUME 11.7 fl (9.6-12.3); MONO # 0.9 10*3/uL (0.1-1.0); MONO % 6.2 % (3.0-9.0); NEUT # 11.1 10*3/uL (2.3-7.9); PLATELET COUNT AUTOMATED 218 10*3/uL (130-400); RED BLOOD COUNT 4.92 10*6/uL (4.50-5.90); RED CELL DISTRI WIDTH 16.1 % (0-14.5); WHITE BLOOD COUNT 14.4 10*3/uL (4.8-10.8)
[2018-11-20 08:00] VITALS: BP 124/83
[2018-11-20 12:00] VITALS: BP 105/66
[2018-11-20 16:00] VITALS: BP 128/89
--- NOTE | 2018-11-20 19:49 | NUR ---
PATIENT AWAKE IN BED. DENIES ANY NEEDS AT THIS TIME. WILL MONITOR. CALL LIG IN REACH.
--- NOTE | 2018-11-20 19:49 | NUR ---
PATIENT AWAKE IN BED. DENIES ANY NEEDS AT THIS TIME. WILL MONITOR. CALL LIGHT IN REACH.
[2018-11-20 20:00] VITALS: BP 106/63
--- NOTE | 2018-11-20 22:17 | NUR ---
PATIENT STATES HE HAS HAD MILD CHEST PAIN SINCE ADMISSION. DESCRIBES PAIN INTERMITTENT DULL ACHE. STATES ON ADMISSION IT WAS AN 8/10. PT NOW RATING PAIN 2/10. PO TYLENOL ADMINISTERED FOR THIS REASON. WILL MONITOR EFFECTIVENESS. PT DENIES ANY OTHER NEEDS AT THIS TIME. CALL LIGHT IN REACH.
--- NOTE | 2018-11-20 23:53 | NUR ---
PT STATES EARLIER TYLENOL EFFECTIVE. DENIES ANY NEEDS AT PRESENT TIME.
[2018-11-21] VITALS: BP 95/62
[2018-11-21 04:00] VITALS: BP 115/71
--- NOTE | 2018-11-21 05:31 | NUR ---
IV LASIX ADMINISTERED SLOWLY PER ORDER. PATIENT STATES HE DID NOT USE URINAL LAST NIGHT TO MEASURE URINE. RN EDUCATED PT ON IMPORTANCE OF USING URINAL. PT VERBALIZES UNDERSTANDING.
[2018-11-21 07:17] LABS: BASO # 0.1 10*3/uL (0.0-0.1); BASO % 0.5 % (0.0-1.0); EOS # 0.3 10*3/uL (0.0-0.4); EOS % 2.3 % (1.0-4.0); HEMATOCRIT 43.2 % (42.0-52.0); HEMOGLOBIN 13.5 g/dl (14.0-18.0); LYMPH # 1.7 10*3/uL (1.3-4.4); LYMPH % 13.5 % (27.0-41.0); MEAN CELL VOLUME 87.3 fl (80.0-94.0); MEAN CORPUSCULAR HGB 27.3 pg (27.0-31.0); MEAN CORPUSCULAR HGB CONC 31.3 g/dl (33.0-37.0); MEAN PLATELET VOLUME 11.4 fl (9.6-12.3); MONO # 0.8 10*3/uL (0.1-1.0); MONO % 6.2 % (3.0-9.0); NEUT # 9.7 10*3/uL (2.3-7.9); NEUT % 76.9 % (47.0-73.0); PLATELET COUNT AUTOMATED 213 10*3/uL (130-400); RED BLOOD COUNT 4.95 10*6/uL (4.50-5.90); RED CELL DISTRI WIDTH 15.8 % (0-14.5); WHITE BLOOD COUNT 12.7 10*3/uL (4.8-10.8)
[2018-11-21 07:46] LABS: CREATININE 1.46 mg/dL (0.70-1.30); POTASSIUM 3.7 mmol/L (3.5-5.1)
[2018-11-21 08:00] VITALS: BP 99/55
[2018-11-21 12:00] VITALS: BP 107/62
--- NOTE | 2018-11-21 12:43 | NUR ---
SPEECH PATHOLOGY Nursing screen complete. Patient admitted with pneumonia. This dept. will be available for consult as needed. SIRISHA HERNANDEZ MSCCC-SPACECRAFT SYSTEMS ENGINEER
[2018-11-21 16:00] VITALS: BP 92/61
--- NOTE | 2018-11-21 17:08 | NUR ---
PT STILL GETTING IV LASIX. NOT MEDICALLY READY FOR DISCHARGE YET. STATES HE WILL BE GOING HOME ON DISCHARGE. WILL CONTINUE TO FOLLOW.
[2018-11-21 20:00] VITALS: BP 104/60
--- NOTE | 2018-11-21 22:52 | NUR ---
BP 104/60 AND HR 77. ALL MEDICATIONS SCHEDULED FOR 2200 GIVEN AT THIS TIME. PT DENIES ANY NEEDS. NO COMPLAINTS VOICED. WILL MONITOR. CALL LIGHT LEFT IN REACH.
[2018-11-22] VITALS: BP 123/67
--- NOTE | 2018-11-22 03:58 | NUR ---
PT ASLEEP IN BED. RESPIRATIONS EASY. NO S/S OF DISTRESS NOTED. WILL MONITOR. CALL LIGHT IN REACH. ELECTRON MICROSCOPIST BATTERY CHANGED AT THIS TIME.
[2018-11-22] MEDS ORDERED: IMDUR SA30 MG PO (07:30)
[2018-11-22] MEDS ORDERED: METOPROLOL SUCC25 M2 PO (07:30)
[2018-11-22] MEDS ORDERED: ATORVASTATIN CA40 M1 PO (07:30)
[2018-11-22] MEDS ORDERED: NITROSTAT0.4 MG SL (07:30)
[2018-11-22] MEDS ORDERED: LEVAQUIN750 M1 PO (07:30)
[2018-11-22 08:10] VITALS: BP 118/72
[2018-11-22] MEDS ORDERED: LASIX40 MG PO (09:09)
--- NOTE | 2018-11-22 10:14 | NUR ---
DULCOLAX GIVEN PER PATIENT REQUEST FOR CONSTIPATION. WILL ASSESS EFFECTIVENESS.
--- NOTE | 2018-11-22 10:50 | NUR ---
PATIENT RECEIVING PRESCRIBED DOSE OF IV LEVAQUIN VIA LEFT ARM HEPLOCK PRIOR TO DISCHARGE.
--- NOTE | 2018-11-22 12:18 | NUR ---
PATIENT HAVING LUNCH, THEN WILL BE DISCHARGED HOME.
--- NOTE | 2018-11-22 13:23 | NUR ---
Discharge instructions reviewed with patient/family. Patient receptive and verbalizes understanding. Follow-up care arranged. Written instructions given to patient/family. CORA CASTILLO
== END 2018-11-22 13:23 | disposition home or self-care (01) | DRG 177 ==
LOC: ED 14:22 → 4E 20:09 → EDHOLD 20:09 → 4E 20:31
PROVIDERS: Emergency Medicine; Family Medicine; Internal Medicine; Student in an Organized Health Care Education/Training Program; ADMIT Internal Medicine
DX: J15.6 Pneumonia due to other Gram-negative bacteria (principal); I50.33 Acute on chronic diastolic (congestive) heart failure; I13.0 Hypertensive heart and chronic kidney disease with heart failure and stage 1 through stage 4 chronic kidney disease, or unspecified chronic kidney disease; E44.0 Moderate protein-calorie malnutrition; Z68.43 Body mass index [BMI] 50.0-59.9, adult; J43.9 Emphysema, unspecified; D64.9 Anemia, unspecified; K21.9 Gastro-esophageal reflux disease without esophagitis; E89.0 Postprocedural hypothyroidism; M19.90 Unspecified osteoarthritis, unspecified site; E78.2 Mixed hyperlipidemia; R91.8 Other nonspecific abnormal finding of lung field; E66.01 Morbid (severe) obesity due to excess calories; D50.9 Iron deficiency anemia, unspecified; E55.9 Vitamin D deficiency, unspecified; E11.22 Type 2 diabetes mellitus with diabetic chronic kidney disease; N18.3 Chronic kidney disease, stage 3 (moderate); F31.9 Bipolar disorder, unspecified; Z87.891 Personal history of nicotine dependence; Z86.73 Personal history of transient ischemic attack (TIA), and cerebral infarction without residual deficits; Z83.3 Family history of diabetes mellitus; Z82.49 Family history of ischemic heart disease and other diseases of the circulatory system; Z79.899 Other long term (current) drug therapy

== ENCOUNTER 2018-11-27 17:11 | Inpatient (IN) | payer MEDICARE ==
[~2018-11-27] VITALS: Ht 188 cm; Wt 171.7 kg
[~2018-11-27 17:11] MED LIST changes: +ATORVASTATIN CA40 M1 PO; +BUPROPION HCL300 MG PO; +DOCUSATE SOD100 MG PO; +FEROSUL325 MG PO; +IMDUR SA30 MG PO; +METOCLOPRAMIDE10 M1 PO; +METOPROLOL SUCC25 M2 PO; +NITROSTAT0.4 MG SL; +OXCARBAZEPINE300 M1 PO; +TRAZODONE100 MG PO
[2018-11-27 17:18] VITALS: BP 130/70
[2018-11-27 17:28] LABS: BASO # 0.1 10*3/uL (0.0-0.1); BASO % 0.5 % (0.0-1.0); EOS # 0.3 10*3/uL (0.0-0.4); EOS % 1.9 % (1.0-4.0); HEMATOCRIT 42.3 % (42.0-52.0); HEMOGLOBIN 13.3 g/dl (14.0-18.0); LYMPH # 1.7 10*3/uL (1.3-4.4); LYMPH % 11.9 % (27.0-41.0); MEAN CELL VOLUME 87.9 fl (80.0-94.0); MEAN CORPUSCULAR HGB 27.7 pg (27.0-31.0); MEAN CORPUSCULAR HGB CONC 31.4 g/dl (33.0-37.0); MEAN PLATELET VOLUME 11.2 fl (9.6-12.3); MONO # 0.6 10*3/uL (0.1-1.0); MONO % 4.3 % (3.0-9.0); NEUT # 11.2 10*3/uL (2.3-7.9); NEUT % 80.7 % (47.0-73.0); PLATELET COUNT AUTOMATED 218 10*3/uL (130-400); RED BLOOD COUNT 4.81 10*6/uL (4.50-5.90); RED CELL DISTRI WIDTH 15.9 % (0-14.5); WHITE BLOOD COUNT 13.8 10*3/uL (4.8-10.8)
[2018-11-27 17:39] LABS: ACT PARTIAL THROMBO TIME 26.5 SECONDS (20.0-32.1)
[2018-11-27 17:44] LABS: ALBUMIN 3.1 gm/dl (3.1-4.5); ALKALINE PHOSPHATASE 111 U/L (45-117); BUN 24 mg/dl (7-24); CHLORIDE 106 mmol/L (98-107); CREATININE 1.42 mg/dL (0.70-1.30); POTASSIUM 4.5 mmol/L (3.5-5.1); SGOT/AST 19 IU/L (3-35); SGPT/ALT 27 U/L (12-78); SODIUM 140 mmol/L (136-145); TOTAL PROTEIN 8.3 gm/dL (6.4-8.2)
[2018-11-27 17:48] LABS: TROPONIN I < 0.015 ng/ml (<0.045)
[2018-11-27 18:07] VITALS: BP 130/70
[2018-11-27 20:30] VITALS: BP 132/76
--- NOTE | 2018-11-27 20:30 | NUR ---
A 63, admitted to 4E, under the services of LEV James DO with a diagnosis of CHEST PAIN. Chief complaint is CHEST PAIN. Patient arrived via stretcher from ER. Monitor applied. Initial assessment completed. Vital signs taken and recorded. LEV JAMES DO notified of admission to the unit. Orders received. See assessment for past medical history, medications and allergies. Patient and/or family oriented to unit. visitation policy reviewed. Clothing/patient valuable form completed. MARIANA TOBIN A
--- NOTE | 2018-11-27 20:45 | NUR ---
MULTIPLE SCABS NOTED TO LOWER LEGS, ECCHYMOSIS TO BOTH ARMS AND UNDER EYE, WELL RED BLANCHABLE AREA TO LEFT CHEEK.
--- NOTE | 2018-11-27 20:53 | NUR ---
CONTACTED DR. HAUSER IN REGARDS TO MED REC BEING UP TO DATE, AND PRIOR FLU IMMUNIZATION.
[2018-11-28] VITALS: BP 128/67
[2018-11-28 06:52] LABS: BASO # 0.1 10*3/uL (0.0-0.1); BASO % 0.8 % (0.0-1.0); EOS # 0.3 10*3/uL (0.0-0.4); EOS % 1.9 % (1.0-4.0); HEMATOCRIT 43.7 % (42.0-52.0); HEMOGLOBIN 13.6 g/dl (14.0-18.0); LYMPH # 2.3 10*3/uL (1.3-4.4); LYMPH % 15.7 % (27.0-41.0); MEAN CELL VOLUME 88.8 fl (80.0-94.0); MEAN CORPUSCULAR HGB 27.6 pg (27.0-31.0); MEAN CORPUSCULAR HGB CONC 31.1 g/dl (33.0-37.0); MEAN PLATELET VOLUME 11.5 fl (9.6-12.3); MONO # 0.9 10*3/uL (0.1-1.0); MONO % 6.3 % (3.0-9.0); NEUT # 10.7 10*3/uL (2.3-7.9); NEUT % 74.7 % (47.0-73.0); PLATELET COUNT AUTOMATED 211 10*3/uL (130-400); RED BLOOD COUNT 4.92 10*6/uL (4.50-5.90); RED CELL DISTRI WIDTH 16.1 % (0-14.5); WHITE BLOOD COUNT 14.3 10*3/uL (4.8-10.8)
[2018-11-28 07:10] LABS: ALBUMIN 3.2 gm/dl (3.1-4.5); BUN 25 mg/dl (7-24); CHLORIDE 105 mmol/L (98-107); CHOLESTEROL 135 mg/dL (<200); CREATININE 1.39 mg/dL (0.70-1.30); PHOSPHOROUS 3.9 mg/dL (2.5-4.9); POTASSIUM 4.2 mmol/L (3.5-5.1); SGOT/AST 18 IU/L (3-35); SGPT/ALT 27 U/L (12-78); SODIUM 139 mmol/L (136-145); TOTAL PROTEIN 8.4 gm/dL (6.4-8.2); TRIGLYCERIDES 119 mg/dl (<150); VLDL CHOLESTEROL 24 mg/dL (6-40)
[2018-11-28 07:17] LABS: ALKALINE PHOSPHATASE 94 U/L (45-117); HDL CHOLESTEROL 37 mg/dl (40-60); LDL CHOLESTEROL 74 mg/dL (9-159)
[2018-11-28 08:00] VITALS: BP 102/50
--- NOTE | 2018-11-28 08:00 | NUR ---
SLEEPING IN BED ON LEFT SIDE. RESP-EASY AND REGULAR. AWAKENS EASILY. NO C/O AT THIS TIME. CALL LIGHT IN REACH. SEE SHIFT ASSESSMENT.
[2018-11-28 08:35] LABS: VITAMIN D, 25-HYDROXY 18.5 ng/mL (30-100)
--- NOTE | 2018-11-28 09:00 | NUR ---
Database Programmer Analyst in to talk to patient. Patient states lives at home with alone. There are no steps in the home. Physician: hipolito villar [facility]: [facility] Patient's level of ADLs: MINIMAL ASSIST Patient has working utilities: all working DME: cane, home oxygen weas at hs, walker Follow-up physician's appointment after d/c: will be made by hospitalist nurse director upon discharge Does patient want to access PORTAL?: no Discharge plan discussed with patient, he lives at home alone, he uses a walker or cane for ambulation, he states he has aids from [facility] that see him 3 days a week, patient stated he would return home when medically stable and denies any home needs, case management will follow. ASHLEY OLSON
--- NOTE | 2018-11-28 10:00 | NUR ---
PT RESTING IN BED. TOLERATED ROUTINE MED WITH NO PROBLEM. NO C/O AT THIS TIME. CALL LIGHT IN REACH.
[2018-11-28 12:00] VITALS: BP 134/82
--- NOTE | 2018-11-28 12:48 | NUR ---
CALLED DR. PANDEY OFFICE MADE AWARE OF CONSULT THEY WILL NOTIFY HIM.
--- NOTE | 2018-11-28 14:30 | NUR ---
RESTING IN BED. NO C/O AT THIS TIME. CALL LIGHT IN REACH.
[2018-11-28 16:00] VITALS: BP 102/66
--- NOTE | 2018-11-28 16:10 | NUR ---
RESTING IN BED. CALL LIGHT IN REACH. SEE SHIFT ASSESSMENT.
--- NOTE | 2018-11-28 17:14 | NUR ---
MEDICATED WITH MAALOX, BENTYL AND XYLOCAINE, SE EEMAR. FOR EPIGASTRIC AREA PAIN. CALL LIGHT IN REACH.
--- NOTE | 2018-11-28 18:00 | NUR ---
SITTING UP AT SIDE OF BED. NO C/O AT THIS TIME. MEDICATION EFFECTIVE. NO C/O CHEST PAIN. CALL LIGHT IN REACH.
[2018-11-28 20:00] VITALS: BP 115/71
[2018-11-29] VITALS (7 sets, daily range): BP systolic 80–124; BP diastolic 52–62
--- NOTE | 2018-11-29 07:45 | NUR ---
PT RESTING IN BED. NO C/O AT THIS TIME. CALL LIGHT IN REACH. SEE SHIFT ASSESSMENT.
--- NOTE | 2018-11-29 09:00 | NUR ---
case management visits with patient, patient was ambulating per self in [place], he states he will return home when medically stable and has [facility] 3 days a week, case management will follow for any other home needs
--- NOTE | 2018-11-29 10:36 | NUR ---
C/O CHEST PAIN, MEDICATED WITH TORADOL IM PER ORDER, SEE EMAR. RATES PAIN 5 ON PAIN SCALE 0-10. PT STATES WORSSE WITH COUGH. CALL LIGHT IN REACH.
--- NOTE | 2018-11-29 11:20 | NUR ---
SITTING UP AT SIDE OF BED. STATES MEDICATION HELPED. CALL LIGHT IN REACH.
--- NOTE | 2018-11-29 15:50 | NUR ---
CALLED DR. POOLE MADE AWARE PT BP 80/52 MANUALLY. SHE WILL NOTIFY RANDY OF BP.
--- NOTE | 2018-11-29 16:15 | NUR ---
PT RESTING IN BED. RESP-EASY AND REGULAR. NO C/O AT THIS TIME. CALL LIGHT IN REACH. SEE SHIFT ASSESSMENT.
--- NOTE | 2018-11-29 18:38 | NUR ---
CALLED DR. POOLE MADE AWARE BP 88/56 MANUALLY. SHE WILL PUT IN ORDER FOR 500ML BOLUS. RECHECK BP AFTER BOLUS.
--- NOTE | 2018-11-29 19:45 | NUR ---
IV IN L WRIST LEAKING. DISCONTINUED.
--- NOTE | 2018-11-29 19:45 | NUR ---
IV started right forearm with #22 protective cath after 2 attempts. Site prepped with Chloroprep. Sterile dressing applied. Patient tolerated procedure well. KANDICE FELICIANO
--- NOTE | 2018-11-29 22:05 | NUR ---
DR CHAMBERLAIN CALLED WITH BP AFTER 500CC BOLUS GIVEN. BP 124/62. NO NEW ORDERS.
--- NOTE | 2018-11-29 22:55 | NUR ---
24 HR chart check completed.
[2018-11-30] VITALS: BP 105/68
--- NOTE | 2018-11-30 | NUR ---
PATIENT LAYING IN BED WATCHING TV. HAS NO COMPLAINTS OR PAIN AT THIS TIME. RESPIRATIONS EASY AND UNLABORED. CALL LIGHT WITHIN REACH. WILL MONITOR.
[2018-11-30 07:06] LABS: BASO # 0.1 10*3/uL (0.0-0.1); BASO % 0.5 % (0.0-1.0); EOS # 0.3 10*3/uL (0.0-0.4); EOS % 2.1 % (1.0-4.0); HEMATOCRIT 38.4 % (42.0-52.0); HEMOGLOBIN 11.9 g/dl (14.0-18.0); LYMPH # 1.8 10*3/uL (1.3-4.4); LYMPH % 13.1 % (27.0-41.0); MEAN CELL VOLUME 88.7 fl (80.0-94.0); MEAN CORPUSCULAR HGB 27.5 pg (27.0-31.0); MEAN PLATELET VOLUME 11.3 fl (9.6-12.3); MONO # 0.9 10*3/uL (0.1-1.0); MONO % 6.5 % (3.0-9.0); NEUT # 10.8 10*3/uL (2.3-7.9); NEUT % 77.3 % (47.0-73.0); PLATELET COUNT AUTOMATED 173 10*3/uL (130-400); RED BLOOD COUNT 4.33 10*6/uL (4.50-5.90); RED CELL DISTRI WIDTH 15.6 % (0-14.5); WHITE BLOOD COUNT 13.9 10*3/uL (4.8-10.8)
[2018-11-30 07:40] LABS: ALBUMIN 2.9 gm/dl (3.1-4.5); CREATININE 1.62 mg/dL (0.70-1.30); POTASSIUM 4.2 mmol/L (3.5-5.1); TOTAL PROTEIN 7.4 gm/dL (6.4-8.2)
[2018-11-30 08:00] VITALS: BP 100/50
--- NOTE | 2018-11-30 09:00 | NUR ---
case management visits with patient, he states he will return home when medically stablle, patient has [facility] manager 3 days a week, case management will follow for any other home needs
[2018-11-30 12:00] VITALS: BP 104/56
[2018-11-30 16:00] VITALS: BP 103/57
[2018-11-30 20:00] VITALS: BP 105/53
[2018-12-01] VITALS: BP 110/50
--- NOTE | 2018-12-01 05:13 | NUR ---
PT RESTING COMFORTABLY AT THIS TIME. NO S/S OF DISTRESS ARE NOTED. RESPS ARE EASY AND NONLABORED. WILL CONTINUE TO MONITOR.
[2018-12-01 08:00] VITALS: BP 106/64
--- NOTE | 2018-12-01 08:08 | NUR ---
PT RESTING IN BED. NO DISTRESS NOTED. WILL MONITOR
[2018-12-01 08:10] LABS: RHEUMATOID ARTHRITIS FACTOR <10.0 IU/mL (0.0-13.9)
--- NOTE | 2018-12-01 09:00 | NUR ---
case management visits with patient, patient will return home when medically stable, [facility] will continue
--- NOTE | 2018-12-01 10:56 | NUR ---
Another Multi-Disciplinary Team meeting was held on 12/01/18, for the purpose of discharge planning. The patient was referred to the following services for follow-up: patient will be discharged to home today, [facility] will continue to follow ASHLEY OLSON
[2018-12-01] MEDS ORDERED: COLCHICINE0.6 M1 PO (12:05)
--- NOTE | 2018-12-01 12:24 | NUR ---
Discharge instructions reviewed with patient/family. Patient receptive and verbalizes understanding. Follow-up care arranged. Written instructions given to patient/family. JEAN-CLAUDE GRANADOS
== END 2018-12-01 12:24 | disposition home or self-care (01) | DRG 291 ==
LOC: ED 17:11 → 4E 19:19 → EDHOLD 19:19 → 4E 20:13
PROVIDERS: Emergency Medicine; Nurse Practitioner Family; Registered Nurse; Student in an Organized Health Care Education/Training Program; ADMIT Emergency Medicine
DX: I13.0 Hypertensive heart and chronic kidney disease with heart failure and stage 1 through stage 4 chronic kidney disease, or unspecified chronic kidney disease (principal); I50.33 Acute on chronic diastolic (congestive) heart failure; N17.0 Acute kidney failure with tubular necrosis; E44.0 Moderate protein-calorie malnutrition; Z68.42 Body mass index [BMI] 45.0-49.9, adult; K21.9 Gastro-esophageal reflux disease without esophagitis; F31.9 Bipolar disorder, unspecified; N18.3 Chronic kidney disease, stage 3 (moderate); E78.2 Mixed hyperlipidemia; E66.01 Morbid (severe) obesity due to excess calories; M19.90 Unspecified osteoarthritis, unspecified site; E89.0 Postprocedural hypothyroidism; E11.65 Type 2 diabetes mellitus with hyperglycemia; E11.22 Type 2 diabetes mellitus with diabetic chronic kidney disease; J43.9 Emphysema, unspecified; D72.829 Elevated white blood cell count, unspecified; D50.9 Iron deficiency anemia, unspecified; K57.90 Diverticulosis of intestine, part unspecified, without perforation or abscess without bleeding; Z87.891 Personal history of nicotine dependence; Z82.49 Family history of ischemic heart disease and other diseases of the circulatory system; Z83.3 Family history of diabetes mellitus; Z87.01 Personal history of pneumonia (recurrent); Z86.73 Personal history of transient ischemic attack (TIA), and cerebral infarction without residual deficits; Z79.899 Other long term (current) drug therapy

== ENCOUNTER 2019-01-02 15:19 | Inpatient (IN) | payer MEDICARE ==
[~2019-01-02] VITALS: Ht 188 cm; Wt 184.7 kg
[~2019-01-02 15:19] MED LIST changes: +COLCHICINE0.6 M1 PO
[2019-01-02 15:22] VITALS: BP 144/72
[2019-01-02 15:43] LABS: BASO # 0.1 10*3/uL (0.0-0.1); BASO % 0.9 % (0.0-1.0); EOS # 0.4 10*3/uL (0.0-0.4); EOS % 3.1 % (1.0-4.0); HEMATOCRIT 40.8 % (42.0-52.0); HEMOGLOBIN 12.6 g/dl (14.0-18.0); LYMPH # 1.4 10*3/uL (1.3-4.4); LYMPH % 12.4 % (27.0-41.0); MEAN CELL VOLUME 88.9 fl (80.0-94.0); MEAN CORPUSCULAR HGB 27.5 pg (27.0-31.0); MEAN CORPUSCULAR HGB CONC 30.9 g/dl (33.0-37.0); MEAN PLATELET VOLUME 11.5 fl (9.6-12.3); MONO # 0.7 10*3/uL (0.1-1.0); MONO % 6.3 % (3.0-9.0); NEUT # 8.7 10*3/uL (2.3-7.9); NEUT % 76.8 % (47.0-73.0); PLATELET COUNT AUTOMATED 206 10*3/uL (130-400); RED BLOOD COUNT 4.59 10*6/uL (4.50-5.90); RED CELL DISTRI WIDTH 16.1 % (0-14.5); WHITE BLOOD COUNT 11.3 10*3/uL (4.8-10.8)
[2019-01-02 15:52] LABS: ACT PARTIAL THROMBO TIME 26.3 SECONDS (20.0-32.1); INTERNATIONAL NORM RATIO 0.9 (2.0-3.5)
[2019-01-02 16:03] LABS: ALBUMIN 3.1 gm/dl (3.1-4.5); ALKALINE PHOSPHATASE 99 U/L (45-117); BUN 20 mg/dl (7-24); CHLORIDE 102 mmol/L (98-107); CREATININE 1.52 mg/dL (0.70-1.30); POTASSIUM 3.8 mmol/L (3.5-5.1); SGOT/AST 22 IU/L (3-35); SGPT/ALT 30 U/L (12-78); SODIUM 139 mmol/L (136-145); TOTAL PROTEIN 7.7 gm/dL (6.4-8.2)
[2019-01-02 16:11] LABS: TROPONIN I < 0.015 ng/ml (<0.045)
[2019-01-02 17:55] VITALS: BP 142/70
[2019-01-02 18:00] VITALS: BP 123/51
--- NOTE | 2019-01-02 18:00 | NUR ---
A 63, admitted to , under the services of RODRIGO Elder DO with a diagnosis of CHEST PAIN, PNEUMONITIS. Chief complaint is INCREASED SWELLING OVER THE LAST WEEK. Patient arrived via ambulance from ER. Monitor applied. Initial assessment completed. Vital signs taken and recorded. RODRIGO ELDER DO notified of admission to the unit. Orders received. See assessment for past medical history, medications and allergies. Patient and/or family oriented to unit. [facility] visitation policy reviewed. Clothing/patient valuable form completed. ESE LOZADA
--- NOTE | 2019-01-02 18:09 | NUR ---
PT HAS ALREADY BEEN IMMUNIZED THIS SEASON WITH FLU VACCINE. DECLINES NEED FOR ANOTHER VACCINE.
--- NOTE | 2019-01-02 18:27 | NUR ---
NOTIFIED THAT MED REC HAS BEEN UPDATED.
--- NOTE | 2019-01-02 18:29 | NUR ---
NOTIFIED THAT [facility] REC IS UPDATED.
[2019-01-02 20:00] VITALS: BP 124/70
--- NOTE | 2019-01-02 20:00 | NUR ---
TUBIGRIPS APPLIED TO PATIENTS BILATERAL LOWER LEGS FOR 2+ EDEMA. ALSO OXYGEN TUBING PLACED IN THE ROOM PER PATIENT REQUEST. STATES HE TYPICALLY USES 2L O2 VIA NASAL CANNULA ONLY AT NIGHT TIME.
[2019-01-03] VITALS: BP 118/66
--- NOTE | 2019-01-03 01:17 | NUR ---
Patient resting quietly in bed with no c/o discomfort. Respirations easy and regular. Vital signs stable. No overt distress. Call light within reach HISSOM,BERNARDO
--- NOTE | 2019-01-03 01:54 | NUR ---
24 HR chart check completed.
[2019-01-03 03:38] VITALS: BP 112/70
--- NOTE | 2019-01-03 03:38 | NUR ---
NOTIFIED DR IBARRA OF PATIENTS FLUCTUATING HEART RATE BETWEEN 20'S AND 50'S. BP WAS 112/70 MANUAL. NO NEW ORDERS AT THIS TIME. PT ASYMPTOMATIC. ON 2L VIA NC RESTING IN BED. CALL LIGHT WITHIN REACH.
[2019-01-03 06:31] LABS: BASO # 0.1 10*3/uL (0.0-0.1); BASO % 0.5 % (0.0-1.0); EOS # 0.4 10*3/uL (0.0-0.4); EOS % 3.2 % (1.0-4.0); HEMATOCRIT 39.2 % (42.0-52.0); LYMPH # 1.5 10*3/uL (1.3-4.4); LYMPH % 12.8 % (27.0-41.0); MEAN CELL VOLUME 89.5 fl (80.0-94.0); MEAN CORPUSCULAR HGB 27.4 pg (27.0-31.0); MEAN CORPUSCULAR HGB CONC 30.6 g/dl (33.0-37.0); MEAN PLATELET VOLUME 11.2 fl (9.6-12.3); MONO # 0.7 10*3/uL (0.1-1.0); MONO % 6.2 % (3.0-9.0); NEUT # 8.8 10*3/uL (2.3-7.9); PLATELET COUNT AUTOMATED 167 10*3/uL (130-400); RED BLOOD COUNT 4.38 10*6/uL (4.50-5.90); RED CELL DISTRI WIDTH 16.1 % (0-14.5); WHITE BLOOD COUNT 11.4 10*3/uL (4.8-10.8)
[2019-01-03 06:44] LABS: ALKALINE PHOSPHATASE 76 U/L (45-117); BUN 18 mg/dl (7-24); CHLORIDE 105 mmol/L (98-107); CREATININE 1.44 mg/dL (0.70-1.30); PHOSPHOROUS 4.3 mg/dL (2.5-4.9); POTASSIUM 3.9 mmol/L (3.5-5.1); SGOT/AST 25 IU/L (3-35); SGPT/ALT 27 U/L (12-78); SODIUM 140 mmol/L (136-145); TOTAL PROTEIN 7.4 gm/dL (6.4-8.2)
[2019-01-03 06:46] LABS: FREE T4 0.34 ng/dl (0.76-1.46)
[2019-01-03 06:56] LABS: ACT PARTIAL THROMBO TIME 26.3 SECONDS (20.0-32.1)
[2019-01-03 07:33] LABS: VITAMIN D, 25-HYDROXY 26.6 ng/mL (30-100)
[2019-01-03 08:00] VITALS: BP 118/78
--- NOTE | 2019-01-03 09:00 | NUR ---
Brass Buffer in to talk to patient. Patient states lives at home with alone. There are no steps in the home. Physician: hipolito villar [facility] Patient's level of ADLs: MINIMAL ASSIST Patient has working utilities: all working DME: cane, walker, home oxygen he uses at hs, doesn't remember name of company Follow-up physician's appointment after d/c: will be made by hospitalist nurse director upon discharge Does patient want to access PORTAL?: no Discharge plan discussed with patient, he states he lives at home alone, he gets around with a walker, and has a cane if needed, he has home oxygen he uses at hs, doesn't remember name of company, he has [facility] aids 3 days a week and has a nurse from [facility] that sets his pills up for him, he stated he would return home when medically stable and denies any home needs. ASHLEY OLSON
[2019-01-03 12:00] VITALS: BP 134/68
--- NOTE | 2019-01-03 15:13 | NUR ---
TYLENOL 650 MG GIVEN FOR C/O H/A,04/03.
[2019-01-03 16:00] VITALS: BP 143/60
[2019-01-03 20:00] VITALS: BP 148/73
--- NOTE | 2019-01-03 20:00 | NUR ---
IN TO TALK WITH THE PATIENT REGARDING PLAN OF CARE. STATED HE WAS ONCE TOLD HE HAD SLEEP APNEA AND THE DOCTOR WANTED HIM TO WEAR A BIPAP MACHINE. PT STATED IT WAS TO UNCOMFORTABLE AND HE WOULD NOT WEAR ONE.
[2019-01-04] VITALS: BP 126/56
--- NOTE | 2019-01-04 01:52 | NUR ---
24 HR chart check completed.
--- NOTE | 2019-01-04 04:16 | NUR ---
Patient sleeping. Respirations relaxed and easy. Siderails up . [place] on. OXYGEN 2L VIA NASAL CANNULA INTACT. CALL LIGHT WITHIN REACH HISSOM,BERNARDO
[2019-01-04 06:57] LABS: HEMATOCRIT 40.6 % (42.0-52.0); HEMOGLOBIN 13.1 g/dl (14.0-18.0); MEAN CELL VOLUME 87.3 fl (80.0-94.0); MEAN CORPUSCULAR HGB 28.2 pg (27.0-31.0); MEAN CORPUSCULAR HGB CONC 32.3 g/dl (33.0-37.0); MEAN PLATELET VOLUME 11.8 fl (9.6-12.3); PLATELET COUNT AUTOMATED 192 10*3/uL (130-400); RED BLOOD COUNT 4.65 10*6/uL (4.50-5.90); RED CELL DISTRI WIDTH 15.6 % (0-14.5); WHITE BLOOD COUNT 16.4 10*3/uL (4.8-10.8)
--- NOTE | 2019-01-04 07:00 | NUR ---
NOTIFIED DR CHAMBERLAIN OF PT HEART RATE DIPPING INTO 20"S WHILE SLEEPING. PT CURRENTLY SINUS SAMMIE ON TELEMETRY.AND HR 54.
[2019-01-04 07:30] LABS: ALBUMIN 2.9 gm/dl (3.1-4.5); ALKALINE PHOSPHATASE 72 U/L (45-117); BUN 19 mg/dl (7-24); CHLORIDE 104 mmol/L (98-107); CREATININE 1.22 mg/dL (0.70-1.30); POTASSIUM 4.1 mmol/L (3.5-5.1); SGOT/AST 23 IU/L (3-35); SGPT/ALT 29 U/L (12-78); SODIUM 140 mmol/L (136-145); TOTAL PROTEIN 7.7 gm/dL (6.4-8.2)
[2019-01-04 07:41] LABS: PLATELET SUFFICIENCY NORMAL (NORMAL); TOTAL CELLS COUNTED 100 #CELLS
[2019-01-04 07:59] VITALS: BP 124/62; BP 132/62
--- NOTE | 2019-01-04 09:00 | NUR ---
case management visits with patient, he will return home when medically stable and denies any home needs
[2019-01-04] MEDS ORDERED: DOXYCYCLINE100 M3 PO (09:49)
[2019-01-04 12:00] VITALS: BP 143/74
--- NOTE | 2019-01-04 12:30 | NUR ---
Discharge instructions reviewed with patient/family. Patient receptive and verbalizes understanding. Follow-up care arranged. Written instructions given to patient/family. CECILIA ACEVEDO
--- NOTE | 2019-01-04 12:41 | NUR ---
case management received a message that patient is returning home today and home health is ordered, patient would like [facility]. case management contacted [facility], send referral and notified them that patient is being discharged to home today
[2019-01-04] MEDS ORDERED: PREDNISONE10 MG PO (13:58)
== END 2019-01-04 12:30 | disposition home health service (06) | DRG 391 ==
LOC: ED 15:19 → 4E 17:07 → EDHOLD 17:07 → 4E 17:18
PROVIDERS: Emergency Medicine; Internal Medicine; ADMIT Internal Medicine
DX: K21.9 Gastro-esophageal reflux disease without esophagitis (principal); J18.9 Pneumonia, unspecified organism; I24.9 Acute ischemic heart disease, unspecified; E44.1 Mild protein-calorie malnutrition; F32.1 Major depressive disorder, single episode, moderate; I50.32 Chronic diastolic (congestive) heart failure; I13.0 Hypertensive heart and chronic kidney disease with heart failure and stage 1 through stage 4 chronic kidney disease, or unspecified chronic kidney disease; Z68.43 Body mass index [BMI] 50.0-59.9, adult; F41.9 Anxiety disorder, unspecified; J43.9 Emphysema, unspecified; D72.810 Lymphocytopenia; G47.33 Obstructive sleep apnea (adult) (pediatric); R06.82 Tachypnea, not elsewhere classified; E03.9 Hypothyroidism, unspecified; Z86.73 Personal history of transient ischemic attack (TIA), and cerebral infarction without residual deficits; M19.90 Unspecified osteoarthritis, unspecified site; E78.2 Mixed hyperlipidemia; D50.9 Iron deficiency anemia, unspecified; E55.9 Vitamin D deficiency, unspecified; E11.22 Type 2 diabetes mellitus with diabetic chronic kidney disease; N18.3 Chronic kidney disease, stage 3 (moderate); R00.1 Bradycardia, unspecified; E11.65 Type 2 diabetes mellitus with hyperglycemia; E66.01 Morbid (severe) obesity due to excess calories; Z83.3 Family history of diabetes mellitus; Z82.49 Family history of ischemic heart disease and other diseases of the circulatory system; Z79.899 Other long term (current) drug therapy

== ENCOUNTER 2019-01-26 15:48 | Inpatient (IN) | payer MEDICARE ==
[~2019-01-26] VITALS: Ht 187.9 cm; Wt 183.4 kg
[2019-01-26 15:52] VITALS: BP 119/56
[2019-01-26 16:10] LABS: BASO # 0.1 10*3/uL (0.0-0.1); BASO % 0.4 % (0.0-1.0); EOS # 0.2 10*3/uL (0.0-0.4); EOS % 1.6 % (1.0-4.0); HEMOGLOBIN 12.9 g/dl (14.0-18.0); MEAN CELL VOLUME 90.3 fl (80.0-94.0); MEAN CORPUSCULAR HGB 27.7 pg (27.0-31.0); MEAN CORPUSCULAR HGB CONC 30.7 g/dl (33.0-37.0); MEAN PLATELET VOLUME 11.3 fl (9.6-12.3); MONO # 0.6 10*3/uL (0.1-1.0); MONO % 4.1 % (3.0-9.0); NEUT # 11.7 10*3/uL (2.3-7.9); NEUT % 86.2 % (47.0-73.0); PLATELET COUNT AUTOMATED 178 10*3/uL (130-400); RED BLOOD COUNT 4.65 10*6/uL (4.50-5.90); RED CELL DISTRI WIDTH 15.9 % (0-14.5); WHITE BLOOD COUNT 13.5 10*3/uL (4.8-10.8)
[2019-01-26 16:21] LABS: ACT PARTIAL THROMBO TIME 25.9 SECONDS (20.0-32.1); INTERNATIONAL NORM RATIO 0.9 (2.0-3.5)
[2019-01-26 16:25] LABS: ALBUMIN 2.8 gm/dl (3.1-4.5); ALKALINE PHOSPHATASE 88 U/L (45-117); BUN 18 mg/dl (7-24); CHLORIDE 106 mmol/L (98-107); CREATININE 1.48 mg/dL (0.70-1.30); SGOT/AST 17 IU/L (3-35); SODIUM 140 mmol/L (136-145); TOTAL PROTEIN 7.4 gm/dL (6.4-8.2)
[2019-01-26 16:28] LABS: SGPT/ALT 31 U/L (12-78)
[2019-01-26 16:36] LABS: TROPONIN I < 0.015 ng/ml (<0.045)
[2019-01-26 19:12] VITALS: BP 128/60
[2019-01-26 20:11] VITALS: BP 125/56
--- NOTE | 2019-01-26 20:11 | NUR ---
A 63, admitted to , under the services of JAKE Hillman DO with a diagnosis of CHEST PAIN. Chief complaint is CHEST PAIN. Patient arrived via bed from ER. Monitor applied. Initial assessment completed. Vital signs taken and recorded. JAKE HILLMAN DO notified of admission to the unit. Orders received. See assessment for past medical history, medications and allergies. Patient and/or family oriented to unit. [facility]. Clothing/patient valuable form completed. FATMATA JEAN BAPTISTE
[2019-01-26 20:12] VITALS: BP 125/56
--- NOTE | 2019-01-26 20:34 | NUR ---
SPOKE TO DR MCNALLY AND INFROMED HER OF THE UPDATED HOME MEDS
--- NOTE | 2019-01-26 23:19 | NUR ---
CALLED AND INFORMED BY OIL RECOVERY UNIT OPERATOR THAT PATIENTS HR DROPPED TO 26 AND WENT BACK UP TO 40'S. PATIENT WAS ASLEEP, ASYMPTOMATIC, NO COMPLAINTS. PATIENT IS WELL KNOW TO US AND HAS A HX OF HR DROPPING INTO 20'S DURING SLEEP. ON FLOOR AND PRESENT, MADE AWARE, SATETD OK.
[2019-01-27] VITALS: BP 96/49
[2019-01-27 01:35] VITALS: BP 130/70
--- NOTE | 2019-01-27 03:28 | NUR ---
24 HR chart check completed.
--- NOTE | 2019-01-27 03:50 | NUR ---
Patient sleeping. Respirations relaxed and easy. Siderails up . [place] on. FATMATA JEAN BAPTISTE
--- NOTE | 2019-01-27 05:15 | NUR ---
RIVET HEATER GAS CALLED TO INFORM ME OF HR DROPPED TO 29 THEN BACK UP TO 59. DOCTORS ARE AWARE OF THIS AND IT IS NORMAL FOR THE PATIENT
[2019-01-27 06:52] LABS: BASO # 0.1 10*3/uL (0.0-0.1); BASO % 0.4 % (0.0-1.0); EOS # 0.3 10*3/uL (0.0-0.4); EOS % 2.7 % (1.0-4.0); HEMATOCRIT 39.4 % (42.0-52.0); HEMOGLOBIN 12.3 g/dl (14.0-18.0); LYMPH # 1.9 10*3/uL (1.3-4.4); LYMPH % 16.1 % (27.0-41.0); MEAN CELL VOLUME 92.7 fl (80.0-94.0); MEAN CORPUSCULAR HGB 28.9 pg (27.0-31.0); MEAN CORPUSCULAR HGB CONC 31.2 g/dl (33.0-37.0); MEAN PLATELET VOLUME 11.7 fl (9.6-12.3); MONO # 0.8 10*3/uL (0.1-1.0); MONO % 6.4 % (3.0-9.0); NEUT # 8.9 10*3/uL (2.3-7.9); NEUT % 73.4 % (47.0-73.0); PLATELET COUNT AUTOMATED 167 10*3/uL (130-400); RED BLOOD COUNT 4.25 10*6/uL (4.50-5.90); RED CELL DISTRI WIDTH 16.2 % (0-14.5); WHITE BLOOD COUNT 12.1 10*3/uL (4.8-10.8)
[2019-01-27 07:20] LABS: BUN 18 mg/dl (7-24); CHLORIDE 105 mmol/L (98-107); CREATININE 1.41 mg/dL (0.70-1.30); PHOSPHOROUS 3.7 mg/dL (2.5-4.9); POTASSIUM 4.1 mmol/L (3.5-5.1); SODIUM 141 mmol/L (136-145)
--- NOTE | 2019-01-27 07:41 | NUR ---
Nursing screen and Occupational Therapy referral received. Thank you. Leelee Molina OTR/l
--- NOTE | 2019-01-27 08:18 | NUR ---
Occupational therapy orders received and chart reviewed. Patient was in bed upon arrival. Patient refusing an occupational therapy evaluation at this time, no reason given. Patient educated on benefits of OT and encouraged to participate and still refused. However, patient was agreeable to an OT evaluation later this morning. Will check at a later time. Thank you for the referral. Su Hayes, OTR/L
--- NOTE | 2019-01-27 08:22 | NUR ---
PHYSICAL THERAPY Screen recieved as well as orders for Physical Therapy will follow thank you Bernadine Nettles PT
[2019-01-27 12:00] VITALS: BP 128/70
--- NOTE | 2019-01-27 12:44 | NUR ---
Forensic Computer Examiner in to talk to patient. Patient states lives at HOME with ALONE. There are NO steps in the home. Physician: Mary CHRERY [facility] Home health services[facility] 3 X WEEK FROM [facility] Patient's level of ADLs: MINIMAL ASSIST Patient has working utilities: YES DME: OXYGEN FOR HS. [facility] Follow-up physician's appointment after d/c: WILL BE MADE BY HOSPITALIST NURSE DIRECTOR ON DISCHARGE Does patient want to access PORTAL?: NO Discharge plan PT LIVES AT HOME ALONE. STATES HE HAS VISITING RN ONCE A WEEK AND [facility] 3 TIMES A WEEK. PT IS UNKEPT. ALSO STATES HE USES OXYGEN AT BEDTIME AND GETS IT THROUGH [employer]. DENIES ANY OTHER NEEDS AT HOME. STATES HE PLANS TO RETURN HOME ON DISCHARGE. WILL CONTINUE TO FOLLOW. SAYS HE WILL HAVE A RIDE HOME. . LEBRON FELICIANO
[2019-01-27] MEDS ORDERED: PREDNISONE10 MG PO (13:45)
--- NOTE | 2019-01-27 14:35 | NUR ---
Occupational Therapy evaluation offered this date. Patient declines OT evaluation stating that he can ambulate to the bathroom and perform all ADLs. When OTR offered to return at a later date, patient declined OT evaluation. Discharge OT referral per patient's request. Thank you. Leelee Molina OTR/herman
[2019-01-27 16:00] VITALS: BP 106/66
[2019-01-27 20:00] VITALS: BP 117/64
--- NOTE | 2019-01-27 21:00 | NUR ---
Patient resting quietly with no c/o discomfort. Respirations easy and regular. Vital signs stable. No overt distress. CLEM PAREDES
[2019-01-28] VITALS: BP 130/85
--- NOTE | 2019-01-28 01:57 | NUR ---
24 HR chart check completed.
--- NOTE | 2019-01-28 04:00 | NUR ---
PATIENT SLEEPING, EYES CLSOED. NO DISTRESS NOTED. CALL LIGHT LEFT WITHIN REACH
--- NOTE | 2019-01-28 05:14 | NUR ---
PATIENTS HR SAMMIE DOWN TO 23 WHILE SLEEPING AND IMMEDIATELY WENT UP TO 40'S. PATIENT HAS A HX OF THIS, DOCTORS ARE AWARE.
[2019-01-28 08:00] VITALS: BP 110/60
--- NOTE | 2019-01-28 11:00 | NUR ---
Discharge instructions reviewed with patient/family. Patient receptive and verbalizes understanding. Follow-up care arranged. Written instructions given to patient/family. HEPLOCK DISCONTINUED. GANG KNIFE FISH CHOPPER REMOVED. PATIENT AMBULATORY OFF FLOOR. JOSSY HECTOR
== END 2019-01-28 11:00 | disposition home or self-care (01) | DRG 391 ==
LOC: ED 15:48 → 4E 18:21 → EDHOLD 18:21 → 4E 19:46
PROVIDERS: Emergency Medicine; Family Medicine; ADMIT Family Medicine
DX: K21.9 Gastro-esophageal reflux disease without esophagitis (principal); J18.9 Pneumonia, unspecified organism; F33.2 Major depressive disorder, recurrent severe without psychotic features; I50.32 Chronic diastolic (congestive) heart failure; I13.0 Hypertensive heart and chronic kidney disease with heart failure and stage 1 through stage 4 chronic kidney disease, or unspecified chronic kidney disease; E44.1 Mild protein-calorie malnutrition; Z68.43 Body mass index [BMI] 50.0-59.9, adult; F41.9 Anxiety disorder, unspecified; J43.9 Emphysema, unspecified; E66.01 Morbid (severe) obesity due to excess calories; D50.9 Iron deficiency anemia, unspecified; N18.3 Chronic kidney disease, stage 3 (moderate); E11.22 Type 2 diabetes mellitus with diabetic chronic kidney disease; I25.10 Atherosclerotic heart disease of native coronary artery without angina pectoris; G47.33 Obstructive sleep apnea (adult) (pediatric); E78.2 Mixed hyperlipidemia; M19.90 Unspecified osteoarthritis, unspecified site; E03.9 Hypothyroidism, unspecified; D72.810 Lymphocytopenia; J06.9 Acute upper respiratory infection, unspecified; R00.1 Bradycardia, unspecified; M25.512 Pain in left shoulder; E11.65 Type 2 diabetes mellitus with hyperglycemia; K57.90 Diverticulosis of intestine, part unspecified, without perforation or abscess without bleeding; Z87.891 Personal history of nicotine dependence; Z82.49 Family history of ischemic heart disease and other diseases of the circulatory system; Z83.3 Family history of diabetes mellitus; Z86.73 Personal history of transient ischemic attack (TIA), and cerebral infarction without residual deficits; Z79.899 Other long term (current) drug therapy

== ENCOUNTER 2019-03-15 16:22 | Inpatient (IN) | payer MEDICARE ==
[~2019-03-15] VITALS: Ht 187.9 cm; Wt 186.5 kg
[2019-03-15 16:50] VITALS: BP 107/62
--- NOTE | 2019-03-15 16:54 | NUR ---
PATIENT DENIES WOUNDS A&OX4.
[2019-03-15 16:58] LABS: BASO # 0.1 10*3/uL (0.0-0.1); BASO % 0.7 % (0.0-1.0); EOS # 0.2 10*3/uL (0.0-0.4); EOS % 1.7 % (1.0-4.0); HEMATOCRIT 41.4 % (42.0-52.0); HEMOGLOBIN 12.8 g/dl (14.0-18.0); LYMPH # 1.3 10*3/uL (1.3-4.4); LYMPH % 10.7 % (27.0-41.0); MEAN CELL VOLUME 90.4 fl (80.0-94.0); MEAN CORPUSCULAR HGB 27.9 pg (27.0-31.0); MEAN CORPUSCULAR HGB CONC 30.9 g/dl (33.0-37.0); MEAN PLATELET VOLUME 11.7 fl (9.6-12.3); MONO # 0.7 10*3/uL (0.1-1.0); MONO % 5.5 % (3.0-9.0); NEUT # 9.9 10*3/uL (2.3-7.9); NEUT % 80.4 % (47.0-73.0); PLATELET COUNT AUTOMATED 186 10*3/uL (130-400); RED BLOOD COUNT 4.58 10*6/uL (4.50-5.90); RED CELL DISTRI WIDTH 15.8 % (0-14.5); WHITE BLOOD COUNT 12.3 10*3/uL (4.8-10.8)
[2019-03-15 17:09] LABS: ACT PARTIAL THROMBO TIME 25.5 SECONDS (20.0-32.1); INTERNATIONAL NORM RATIO 0.9 (2.0-3.5)
[2019-03-15 17:16] LABS: ALBUMIN 3.1 gm/dl (3.1-4.5); BUN 21 mg/dl (7-24); CHLORIDE 104 mmol/L (98-107); CREATININE 1.59 mg/dL (0.70-1.30); POTASSIUM 4.2 mmol/L (3.5-5.1); SGOT/AST 22 IU/L (3-35); SODIUM 137 mmol/L (136-145); TOTAL PROTEIN 7.4 gm/dL (6.4-8.2)
[2019-03-15 17:20] LABS: ALKALINE PHOSPHATASE 111 U/L (45-117); SGPT/ALT 26 U/L (12-78)
[2019-03-15 17:21] LABS: TROPONIN I < 0.015 ng/ml (<0.045)
--- NOTE | 2019-03-15 18:53 | NUR ---
PATIENT AT CT SCAN AT THIS TIME.
[2019-03-15 19:20] VITALS: BP 144/70
[2019-03-15 22:21] VITALS: BP 144/62
--- NOTE | 2019-03-15 22:53 | NUR ---
A 63, admitted to , under the services of RODRIGO Elder DO with a diagnosis of CHF. Chief complaint is CHEST PAIN AND DYSPNEA. Patient arrived via wheel chair from ER. Monitor applied. Initial assessment completed. Vital signs taken and recorded. RODRIGO ELDER DO notified of admission to the unit. Orders received. See assessment for past medical history, medications and allergies. Patient and/or family oriented to unit. [facility] visitation policy reviewed. Clothing/patient valuable form completed. KANDICE MCFARLAND
[2019-03-15 22:54] VITALS: BP 128/83
--- NOTE | 2019-03-15 23:30 | NUR ---
PT UNABLE TO GIVE MEDICATION LIST. WILL HAVE DAYLIGHT NURSE FOLLOW UP WITH TOMY PAULINO.
--- NOTE | 2019-03-16 06:28 | NUR ---
PT RESTING IN BED. NO S/S OF DISTRESS. AROUSES EASILY. 2L OXYGEN IN TACT VIA NC PER PT REQUEST TO WEAR WHILE SLEEPING. PT IV SITE TO RIGHT ARM PATENT,FLUSHING. DRESSING C/D/I. IV LASIX GIVEN AT THIS TIME. NO COMPLAINTS ARE VOICED. RESPIRATIONS EASY AND UNLABORED. CALL LIGHT IN REACH.
[2019-03-16 06:44] LABS: BASO # 0.1 10*3/uL (0.0-0.1); BASO % 0.7 % (0.0-1.0); EOS # 0.3 10*3/uL (0.0-0.4); EOS % 2.2 % (1.0-4.0); HEMATOCRIT 43.1 % (42.0-52.0); HEMOGLOBIN 13.3 g/dl (14.0-18.0); LYMPH # 2.1 10*3/uL (1.3-4.4); LYMPH % 16.4 % (27.0-41.0); MEAN CELL VOLUME 92.3 fl (80.0-94.0); MEAN CORPUSCULAR HGB 28.5 pg (27.0-31.0); MEAN CORPUSCULAR HGB CONC 30.9 g/dl (33.0-37.0); MONO # 0.7 10*3/uL (0.1-1.0); MONO % 5.7 % (3.0-9.0); NEUT # 9.7 10*3/uL (2.3-7.9); NEUT % 74.3 % (47.0-73.0); PLATELET COUNT AUTOMATED 185 10*3/uL (130-400); RED BLOOD COUNT 4.67 10*6/uL (4.50-5.90); RED CELL DISTRI WIDTH 15.9 % (0-14.5)
[2019-03-16 07:18] LABS: CREATININE 1.51 mg/dL (0.70-1.30); FREE T4 0.53 ng/dl (0.76-1.46); POTASSIUM 3.9 mmol/L (3.5-5.1)
--- NOTE | 2019-03-16 07:40 | NUR ---
IN TO SEE PT. ASSESSMENT COMPLETE. PT HAS NO COMPLAINTS AT THIS TIME AND DENIES ANY PAIN. PATIENT WONDERING ABOUT HIS MEDICATIONS. INFORMED PT I WOULD BE CALLING [facility] WHEN THEY OPENED TO FAX OVER A LIST OF MEDS SINCE HE DOES NOT KNOW WHAT HE TAKES. CALL LIGHT WITHIN REACH. WILL CONTINUE TO MONITOR.
[2019-03-16 08:00] VITALS: BP 113/64; BP 120/68
--- NOTE | 2019-03-16 08:00 | NUR ---
24 HR chart check completed.
[2019-03-16 09:24] LABS: VITAMIN D, 25-HYDROXY 28.2 ng/mL (30-100)
[2019-03-16] MEDS ORDERED: ALDACTONE25 M1 PO (10:08)
[2019-03-16] MEDS ORDERED: METOCLOPRAMIDE10 MG PO (10:16)
[2019-03-16] MEDS ORDERED: PRAVASTATIN SOD20 MG PO (10:17)
[2019-03-16] MEDS ORDERED: POTASSIUM CHLO10 ME5 PO (10:19)
[2019-03-16] MEDS ORDERED: METOPROLOL SUCC25 M2 PO (10:21)
--- NOTE | 2019-03-16 10:30 | NUR ---
DAYLIGHT NURSE NOTIFIED ME PT UNAWARE OF MEDS HE TAKES. CALLED [facility] AND GOT PTS MED FAXED OVER. PTS MED REC UP TO DATE AND INFORMED MED REC UP TO DATE.
--- NOTE | 2019-03-16 10:30 | NUR ---
Bead Preparer in to talk to patient. Patient states lives at home alone with his friend checking in on him. There are 0 steps in the home. Physician: Dr. Kirk Saldivar [facility]acy: [facility] Home health services: [facility] nurse once a week, [facility] 3 times a week for 2 hours Patient's level of ADLs: INDEPENDENT Patient has working utilities: yes DME: O2 @ 2L nc HS, O2 supplier [facility] Follow-up physician's appointment after d/c: will be made by the hospitalist nurse director upon discharge Does patient want to access PORTAL?: no Discharge plan discussed with patient. He lives at home alone with his friends checking in on him. He is independent in his ADLs and ambulation. Discussed home health care services and he states he has a [facility] nurse come once a week and [facility] 3 times a week for 2 hours. When medically stable he will be discharged to home with the resumption of his home health care services. He is unsure of how he is going to get home. SATISH CANO
[2019-03-16 12:00] VITALS: BP 100/49
--- NOTE | 2019-03-16 15:39 | NUR ---
PT DOWN FOR ULRASOUND AT THIS TIME.
[2019-03-16 16:00] VITALS: BP 127/76
--- NOTE | 2019-03-16 16:32 | NUR ---
PT BACK ON THE FLOOR AT THIS TIME.
--- NOTE | 2019-03-16 19:30 | NUR ---
TOOK OVER CARE OF PT. PT SITTING UP IN BED, WATCHING TV. STABLE, ALERT ORIENTED AND PLEASANT. DENIES NEEDING ANYTHING AT THIS TIME. CALL LIGHT IN REACH.
[2019-03-16 20:00] VITALS: BP 125/63
[2019-03-16 22:00] VITALS: BP 124/80
--- NOTE | 2019-03-16 22:00 | NUR ---
HS MEDICATIONS GIVEN AT THIS TIME. NO S/S OF DISTRESS. PT DENIES NEEDING ANYTHING. RESPIATIONS UNLABORED ON ROOM AIR. ASSESSMENT COMPLETE. MANUAL BP WNL. ALL SAFETY MEASURES IN PLACE. CALL LIGHT IN REACH.
[2019-03-17] VITALS: BP 99/50
--- NOTE | 2019-03-17 00:39 | NUR ---
24 HR chart check completed.
--- NOTE | 2019-03-17 01:30 | NUR ---
NOTIFIED DR MCNALLY THAT DOMESTIC CLEANER TECH NOTIFIES THIS NURSE THAT PT HEART RATE DROPS INTO 30S AT TIME AND THEN RETURNS TO 60S-70S SHORTLY AFTER. PT ASSESSED. PT AROUSES EASILY. DENIES SHORTNESS OF BREATH AND CP. SUPPLEMENTAL OXYGEN AT 2L NC IN PLACE. BP WNL. RESPIRATIONS EASY AND UNLABORED. WILL CONTINUE TO MONITOR PT.
--- NOTE | 2019-03-17 05:56 | NUR ---
PT PROVIDED WITH TOWELS/WASHCLOTHS AND APPROPRIATE SOAP TO WASH UP FOR STRESS TEST THIS MORNING. PT STATES THAT HE IS GOING TO GET UP AND WASH UP AT THIS TIME. WILL MONITOR AND ENSURE THAT THIS HAPPENS.
--- NOTE | 2019-03-17 07:20 | NUR ---
Patient resting quietly with no c/o discomfort. Respirations easy and regular. Vital signs stable. No overt distress. TOSHIA CHAMORRO
--- NOTE | 2019-03-17 07:31 | NUR ---
PT STATES HE GOT WASHED UP THIS AM HIS HAIR IS WET TOWELS WET. WENT TO GO PUT MONITOR BACK ON. PT STILL STINKY BUT STATES GOT WASHED UP
[2019-03-17 08:00] VITALS: BP 97/50
--- NOTE | 2019-03-17 10:53 | NUR ---
INFORMED SIGNED CONSENT OBTAINED FOR LEXISCAN STRESS TEST WITH DR ALEXANDER. RESTING EKG NSR HR 69 BP 144/78. PULSE OX 95% LUNGS DIMINISHED. Q WAVE IN V1-V2. PT COMPLETED ONE MINUTE OF A LEXISCAN PROTOCOL WITH PT RECEIVING 0.4MG IV OVER 10 SEC[address] ARRHYTHMIAS OR ST CHANGES. PT HAD NO SYMPTOMS WITH INJECTION. LAST RECOVERY HR OF 77 BP 126/58. PT IN STABLE CONDITION, AWAITING NUCLEAR IMAGES.
--- NOTE | 2019-03-17 11:00 | NUR ---
Tunnel Worker in to see patient. No new needs or request at this time. When medically stable he will be discharged to home with the resumption of his home health care services of [facility] nurse weekly and [facility] three times a week for 2 hours.
--- NOTE | 2019-03-17 11:37 | NUR ---
ASSUMED CARE OF PT. PT CURRENTLY OFF FLOOR FOR STRESS TEST.
[2019-03-17 12:00] VITALS: BP 111/46
--- NOTE | 2019-03-17 13:09 | NUR ---
RANDY BARNES NOTIFIED OF BP 111/46 WITHOUT BP MEDS GIVEN. SAID SHE WOULD LOOK AT CHART AND GIVE FURTHER INSTRUCTIONS. MEDS HELD AT THIS TIME.
[2019-03-17] MEDS ORDERED: LIPITOR10 MG PO (16:20)
--- NOTE | 2019-03-17 17:10 | NUR ---
Discharge instructions reviewed with patient/family. Patient receptive and verbalizes understanding. Follow-up care arranged. Written instructions given to patient/family. RAFIQ ARAGON
== END 2019-03-17 17:10 | disposition home or self-care (01) | DRG 205 ==
LOC: ED 16:22 → 5E 21:20 → EDHOLD 21:20 → 5E 22:04
PROVIDERS: Internal Medicine; Nurse Practitioner Family; ADMIT Internal Medicine
PROC: 4A02XM4 Measurement of Cardiac Total Activity, External Approach (ICD-10-PCS; principal; 2019-03-17)
PROC: 3E073KZ Introduction of Other Diagnostic Substance into Coronary Artery, Percutaneous Approach (ICD-10-PCS; principal; 2019-03-17)
DX: M94.0 Chondrocostal junction syndrome [Tietze] (principal); I50.33 Acute on chronic diastolic (congestive) heart failure; E87.2 Acidosis; J98.11 Atelectasis; I13.0 Hypertensive heart and chronic kidney disease with heart failure and stage 1 through stage 4 chronic kidney disease, or unspecified chronic kidney disease; Z68.43 Body mass index [BMI] 50.0-59.9, adult; D72.829 Elevated white blood cell count, unspecified; R73.9 Hyperglycemia, unspecified; N62 Hypertrophy of breast; F31.9 Bipolar disorder, unspecified; M19.90 Unspecified osteoarthritis, unspecified site; E78.2 Mixed hyperlipidemia; E66.01 Morbid (severe) obesity due to excess calories; E89.0 Postprocedural hypothyroidism; J43.9 Emphysema, unspecified; D50.9 Iron deficiency anemia, unspecified; E55.9 Vitamin D deficiency, unspecified; N18.3 Chronic kidney disease, stage 3 (moderate); K21.9 Gastro-esophageal reflux disease without esophagitis; M1A.9XX0 Chronic gout, unspecified, without tophus (tophi); I25.118 Atherosclerotic heart disease of native coronary artery with other forms of angina pectoris; Z86.73 Personal history of transient ischemic attack (TIA), and cerebral infarction without residual deficits; Z85.850 Personal history of malignant neoplasm of thyroid; Z87.891 Personal history of nicotine dependence; Z83.3 Family history of diabetes mellitus; Z82.49 Family history of ischemic heart disease and other diseases of the circulatory system; I25.2 Old myocardial infarction

== ENCOUNTER 2019-07-12 11:25 | Inpatient (IN) | payer MEDICARE ==
[~2019-07-12] VITALS: Ht 187.9 cm; Wt 207.5 kg
[2019-07-12 11:25] VITALS: BP 113/58
[~2019-07-12 11:25] MED LIST changes: +ALDACTONE25 M1 PO; +LIPITOR10 MG PO; +METOCLOPRAMIDE10 MG PO; +POTASSIUM CHLO10 ME5 PO
[2019-07-12 12:11] LABS: BASO # 0.1 10*3/uL (0.0-0.1); BASO % 0.5 % (0.0-1.0); EOS # 0.3 10*3/uL (0.0-0.4); EOS % 1.9 % (1.0-4.0); LYMPH # 1.8 10*3/uL (1.3-4.4); LYMPH % 13.1 % (27.0-41.0); MEAN CELL VOLUME 89.8 fl (80.0-94.0); MEAN CORPUSCULAR HGB 28.4 pg (27.0-31.0); MEAN CORPUSCULAR HGB CONC 31.6 g/dl (33.0-37.0); MEAN PLATELET VOLUME 11.7 fl (9.6-12.3); MONO # 0.8 10*3/uL (0.1-1.0); MONO % 5.8 % (3.0-9.0); NEUT # 10.9 10*3/uL (2.3-7.9); NEUT % 77.8 % (47.0-73.0); PLATELET COUNT AUTOMATED 169 10*3/uL (130-400); RED BLOOD COUNT 4.23 10*6/uL (4.50-5.90); RED CELL DISTRI WIDTH 15.9 % (0-14.5)
[2019-07-12 12:21] LABS: ACT PARTIAL THROMBO TIME 24.9 SECONDS (20.0-32.1)
[2019-07-12 12:27] LABS: ALBUMIN 3.1 gm/dl (3.1-4.5); ALKALINE PHOSPHATASE 73 U/L (45-117); BUN 28 mg/dl (7-24); CHLORIDE 105 mmol/L (98-107); CREATININE 1.63 mg/dL (0.70-1.30); POTASSIUM 4.3 mmol/L (3.5-5.1); SGOT/AST 19 IU/L (3-35); SGPT/ALT 32 U/L (12-78); SODIUM 139 mmol/L (136-145); TOTAL PROTEIN 7.6 gm/dL (6.4-8.2)
[2019-07-12 12:30] LABS: TROPONIN I < 0.015 ng/ml (<0.045)
[2019-07-12 12:34] VITALS: BP 112/52
[2019-07-12 14:00] VITALS: BP 113/69
[2019-07-12 14:10] VITALS: BP 123/68
[2019-07-12 20:00] VITALS: BP 124/55
[2019-07-12] MEDS ORDERED: FEROSUL325 MG PO (20:56)
[2019-07-13] VITALS: BP 118/69
[2019-07-13 07:08] LABS: BASO # 0.1 10*3/uL (0.0-0.1); BASO % 0.6 % (0.0-1.0); EOS # 0.3 10*3/uL (0.0-0.4); EOS % 2.4 % (1.0-4.0); HEMATOCRIT 38.6 % (42.0-52.0); LYMPH # 1.5 10*3/uL (1.3-4.4); LYMPH % 11.3 % (27.0-41.0); MEAN CELL VOLUME 91.5 fl (80.0-94.0); MEAN CORPUSCULAR HGB 28.4 pg (27.0-31.0); MEAN CORPUSCULAR HGB CONC 31.1 g/dl (33.0-37.0); MEAN PLATELET VOLUME 12.3 fl (9.6-12.3); MONO # 0.7 10*3/uL (0.1-1.0); MONO % 5.3 % (3.0-9.0); NEUT # 10.4 10*3/uL (2.3-7.9); NEUT % 79.6 % (47.0-73.0); PLATELET COUNT AUTOMATED 179 10*3/uL (130-400); RED BLOOD COUNT 4.22 10*6/uL (4.50-5.90); RED CELL DISTRI WIDTH 16.2 % (0-14.5); WHITE BLOOD COUNT 13.1 10*3/uL (4.8-10.8)
[2019-07-13 07:36] LABS: ALBUMIN 3.1 gm/dl (3.1-4.5); ALKALINE PHOSPHATASE 76 U/L (45-117); BUN 24 mg/dl (7-24); CHLORIDE 103 mmol/L (98-107); CHOLESTEROL 168 mg/dL (<200); FREE T4 0.52 ng/dl (0.76-1.46); HDL CHOLESTEROL 31 mg/dl (40-60); LDL CHOLESTEROL 108 mg/dL (9-159); POTASSIUM 4.8 mmol/L (3.5-5.1); SGOT/AST 23 IU/L (3-35); SGPT/ALT 31 U/L (12-78); SODIUM 137 mmol/L (136-145); TOTAL PROTEIN 7.8 gm/dL (6.4-8.2); TRIGLYCERIDES 145 mg/dl (<150); VLDL CHOLESTEROL 29 mg/dL (6-40)
[2019-07-13 08:00] VITALS: BP 128/68
[2019-07-13 09:35] LABS: BACTERIA TRACE; BILIRUBIN NEGATIVE (NEGATIVE); BLOOD NEGATIVE (NEGATIVE); CLARITY CLEAR (CLEAR); COLOR YELLOW (YELLOW); GLUCOSE NEGATIVE (NEGATIVE); KETONE NEGATIVE (NEGATIVE); LEUKO ESTERASE NEGATIVE (NEGATIVE); MUCOUS TRACE; NITRITE NEGATIVE (NEGATIVE); UROBILINOGEN 0.2 E.U./dl (0.2-1.0)
[2019-07-13 12:00] VITALS: BP 111/64
[2019-07-13] MEDS ORDERED: ABILIFY5 MG PO (12:02)
[2019-07-13] MEDS ORDERED: PRAVACHOL20 MG PO (12:06)
[2019-07-13 16:00] VITALS: BP 113/59
[2019-07-13 20:00] VITALS: BP 105/52
[2019-07-14] VITALS: BP 110/46
[2019-07-14 08:00] VITALS: BP 126/64
[2019-07-14 12:00] VITALS: BP 134/78
[2019-07-14 16:00] VITALS: BP 131/71
[2019-07-14 20:00] VITALS: BP 104/53
[2019-07-15 00:05] VITALS: BP 119/98
[2019-07-15] MEDS ORDERED: LEVOFLOXACIN500 MG PO (09:48)
[2019-07-15] MEDS ORDERED: PANTOPRAZOLE SO40 MG PO (09:53)
[2019-07-15] MEDS ORDERED: CARAFATE1 G1 PO (09:53)
[2019-07-15] MEDS ORDERED: IMDUR SA30 MG PO (09:53)
[2019-07-15] MEDS ORDERED: VITAMIN D350 MC2 PO (10:09)
[2019-07-19] MEDS ORDERED: ANORO ELLIPTA1 EACH INH (12:03)
[2019-07-19] MEDS ORDERED: REGLAN10 M1 PO (12:04)
[2019-07-19] MEDS ORDERED: CORT DOME 0.5%30 GM T (12:04)
[2019-07-21] MEDS ORDERED: OMNICEF300 MG PO (12:41)
[2019-07-21] MEDS ORDERED: AVPAK AZITHROM250 M1 PO (12:41)
[2019-07-21] MEDS ORDERED: MIRTAZAPINE15 M2 PO (12:42)
== END 2019-07-15 11:00 | disposition home or self-care (01) | DRG 178 ==
LOC: ED 11:25 → EDHOLD 13:53 → 5E 13:53
PROVIDERS: Emergency Medicine; Registered Nurse; ADMIT Internal Medicine
PROC: 0HBRXZZ Excision of Toe Nail, External Approach (ICD-10-PCS; principal; 2019-07-12)
DX: J15.6 Pneumonia due to other Gram-negative bacteria (principal); I50.32 Chronic diastolic (congestive) heart failure; I13.0 Hypertensive heart and chronic kidney disease with heart failure and stage 1 through stage 4 chronic kidney disease, or unspecified chronic kidney disease; N18.3 Chronic kidney disease, stage 3 (moderate); K21.9 Gastro-esophageal reflux disease without esophagitis; I25.10 Atherosclerotic heart disease of native coronary artery without angina pectoris; M10.9 Gout, unspecified; F31.9 Bipolar disorder, unspecified; E78.2 Mixed hyperlipidemia; D50.9 Iron deficiency anemia, unspecified; E55.9 Vitamin D deficiency, unspecified; J43.9 Emphysema, unspecified; E89.0 Postprocedural hypothyroidism; M19.90 Unspecified osteoarthritis, unspecified site; B35.1 Tinea unguium; I25.2 Old myocardial infarction; Z79.899 Other long term (current) drug therapy; Z87.891 Personal history of nicotine dependence; Z82.49 Family history of ischemic heart disease and other diseases of the circulatory system; Z83.3 Family history of diabetes mellitus; Z86.73 Personal history of transient ischemic attack (TIA), and cerebral infarction without residual deficits; D72.829 Elevated white blood cell count, unspecified

== ENCOUNTER 2019-09-20 01:34 | Observation (INO) | payer MEDICARE ==
[2019-09-20] VITALS (7 sets, daily range): BP systolic 112–147; BP diastolic 57–81
[~2019-09-20] VITALS: Ht 188 cm; Wt 179.3 kg
[~2019-09-20 01:34] MED LIST changes: +ANORO ELLIPTA1 EACH INH; +AVPAK AZITHROM250 M1 PO; +CARAFATE1 G1 PO; +CORT DOME 0.5%30 GM T; +LEVOFLOXACIN500 MG PO; +MIRTAZAPINE15 M2 PO; +OMNICEF300 MG PO; +REGLAN10 M1 PO; +VITAMIN D350 MC2 PO
[2019-09-20 02:01] LABS: BASO # 0.1 10*3/uL (0.0-0.1); BASO % 0.4 % (0.0-1.0); EOS # 0.2 10*3/uL (0.0-0.4); EOS % 1.3 % (1.0-4.0); HEMATOCRIT 39.4 % (42.0-52.0); LYMPH # 1.6 10*3/uL (1.3-4.4); LYMPH % 10.3 % (27.0-41.0); MEAN CELL VOLUME 88.3 fl (80.0-94.0); MEAN CORPUSCULAR HGB 27.4 pg (27.0-31.0); MONO # 0.9 10*3/uL (0.1-1.0); MONO % 5.9 % (3.0-9.0); NEUT # 12.7 10*3/uL (2.3-7.9); NEUT % 81.6 % (47.0-73.0); PLATELET COUNT AUTOMATED 230 10*3/uL (130-400); RED BLOOD COUNT 4.46 10*6/uL (4.50-5.90); WHITE BLOOD COUNT 15.5 10*3/uL (4.8-10.8)
[2019-09-20 02:12] LABS: ACT PARTIAL THROMBO TIME 26.5 SECONDS (20.0-32.1)
[2019-09-20 02:20] LABS: ALBUMIN 2.8 gm/dl (3.1-4.5); ALKALINE PHOSPHATASE 93 U/L (45-117); BUN 25 mg/dl (7-24); CHLORIDE 102 mmol/L (98-107); CREATININE 1.34 mg/dL (0.70-1.30); POTASSIUM 4.4 mmol/L (3.5-5.1); SGOT/AST 16 IU/L (3-35); SGPT/ALT 32 U/L (12-78); SODIUM 135 mmol/L (136-145); TOTAL PROTEIN 8.1 gm/dL (6.4-8.2)
[2019-09-20 02:23] LABS: TROPONIN I < 0.015 ng/ml (<0.045)
--- NOTE | 2019-09-20 03:56 | NUR ---
PHOTO TAKEN OF PATIENT'S LOWER ABDOMEN, ASSISTED BY WOUND CARE NURSE SHARMIN. PER SHARMIN, LOWER ABDOMEN AND GROIN AREA CAN BE INCLUDED IN 1 PHOTO NO NEED TO TAKE MULTIPLE PHOTOS.
--- NOTE | 2019-09-20 04:30 | NUR ---
A 64, admitted to , under the services of HOLLAND John DO with a diagnosis of RIGHT MIDDLE LOBE PNEUMONIA, COPD, CHEST PAIN. Chief complaint is CHEST PAIN. Patient arrived via ambulance from ER. Monitor applied. Initial assessment completed. Vital signs taken and recorded. HOLLAND JOHN DO notified of admission to the unit. Orders received. See assessment for past medical history, medications and allergies. Patient and/or family oriented to unit. visitation policy reviewed. Clothing/patient valuable form completed. YUMIKO CORREA
--- NOTE | 2019-09-20 04:30 | NUR ---
PATIENT HAS 2 WOUND AREAS. KELLIE-AREA/GROIN AND BUTTOCKS. PICTURES TAKEN OF BOTH AREAS AND RECORDED IN WOUND SCREEN. NYSTATIN POWDER ORDERED FOR AREA'S. NOT APPLIED YET SINCE PHARMACY DOES NOT GET HERE UNTIL 0700. DAYLIGHT NURSE TO APPLY NYSTATIN, WILL PASS ALONG. EDUCATED ON THE IMPORTANCE OF TURNING AND KEEPING PRESSURE POINTS OFF OF SURFACE FOR EXTENDED PERIODS. PATIENT VERBALIZES UNDERSTANDING. PATIENT CURRENTLY ON RED BED. BED ALARMED DUE TO FALL RISK AND HISTORY OF FALLS. VITALS SIGNS TAKEN AND RECORDED. MONITOR APPLIED. CALL LIGHT WITHIN REACH.
[2019-09-20] MEDS ORDERED: ALBUTEROL1.25 MG/3 INH (04:40)
[2019-09-20] MEDS ORDERED: GENTLE LAXATIVE10 MG R (04:41)
[2019-09-20] MEDS ORDERED: FLEET ENEMA EX230 M1 R (04:43)
[2019-09-20] MEDS ORDERED: MILK OF MA400 MG/5 M PO (04:45)
[2019-09-20] MEDS ORDERED: TYLENOL325 M1 PO (04:46)
--- NOTE | 2019-09-20 06:56 | NUR ---
ISMAEL TOBIN [id number] Please refer to the physician's history and physical for past medical history, comorbid conditions, and allergies. Diagnosis: RIGHT MIDDLE LOBE PNEUMONIA, COPD EXACERBATION Eber Score: , WOUND DESCRIPTIONS: Wound Number: 1 Location of the wound: lower abdominal fold, periarea and bilateral groin Type of wound: MASD Thickness: Partial Size: 36.0cm x 42.0cm x 0.1cm Tunneling: none Undermining: none Sinus Tract: none Presence of Exudate: Serous Amount: Light Color: Red Odor: Foul Periwound Skin Appearance: Normal Wound edges: approximated Pain (associated with wound): tender at time of assessment How does patient state this happened? pt states this has been going on for sometime now Wound Number: 2 Location of the wound: intergluteal cleft Type of wound: MASD Thickness: Partial Size: 21.5cm x 3.8cm x 0.1cm Tunneling: none Undermining: none Sinus Tract: none Presence of Exudate: Serous Amount: Light Color: Red Odor: Foul Periwound Skin Appearance: Normal Wound edges: approximated Pain (associated with wound): tender at time of assessment How does patient state this happened? pt states this has been going on for sometime now Surface the patient is resting on: Position Pro SKIN PREVENTION RECOMMENDATION: 1. Pressure redistribution support surface as appropriate 2. Elevate heels 3. Remove boots/TEDS every shift and reapply 4. Head of bed 30 degrees as tolerated 5. Assess nutrition and hydration 6. Manage moisture 7. Avoid the use of containment devices while in bed 8. Use absorptive products on surfaces limit layers of linens on bed 9. Turn and reposition every 1-2 hours in bed and every 1 hour in chair as tolerated 10. Weight shifts every 15 minutes while up in chair 11. Offloading with pillows or device to keep heels elevated off bed 12. Monitor skin at least every shift 13. Inspect under medical devices twice a day WOUND TREATMENT RECOMMENDATIONS: Cleanse abdominal folds, bilateral groins and periarea with soap and water pat areas dry then apply nystatin powder every 8 hours. Cleanse intergluteal cleft with soap and water pat areas dry then apply calazime every shift and prn for soiling. Wheelchair cushion when oob Heel raiser pro boots to bilateral feet while in bed
--- NOTE | 2019-09-20 07:00 | NUR ---
ARRIVED ON SHIFT, REPPORT RECEIVED FROM OFFGOING NURSE, ASSUMED CARE OF PATIENT.
--- NOTE | 2019-09-20 07:30 | NUR ---
INTRODUCED SELF TO PATIENT, BED IN LOW POSITION, WHEEL LOCKS ENGAGED, SIDE RAILS UP X 2 FOR TURNING AND REPOSITIOING, CALL LIGHT WITHIN REACH, NO NEEDS VOICED AT THIS TIME,. WHITE BOARD UPDATED.
--- NOTE | 2019-09-20 07:57 | NUR ---
PHYSICAL THERAPY Screen and evaluation orders recieved. Will follow. Thank you. Jonas Cheng SPT Maureen Edgar PT
--- NOTE | 2019-09-20 09:48 | NUR ---
Patient comes in from [facility]. Due to patient being admitted under observation he is ok to return when medically stable for discharge without waiting for a precert. PT/OT and covid have all been ordered.
--- NOTE | 2019-09-20 10:41 | NUR ---
Dr. Lew notified of wound care recommendations.
--- NOTE | 2019-09-20 16:14 | NUR ---
Occupational Therapy evaluation completed on four with full evaluation to follow. Recommend occupational therapy per plan of care and SNF upon discharge. Thank you for this referral. Su Hayes OTR/L
--- NOTE | 2019-09-20 16:15 | NUR ---
PHYSICAL THERAPY Physical Therapy evaluation completed on 4E under COVID precautions with full evaluation to follow. Low complexity PT evaluation per chart review and evaluation, [id number]. Recommend physical therapy per plan of care and SNF upon discharge. Thank you for this referral. Maureen Edgar,PT,DPT
[2019-09-21] VITALS: BP 121/68
[2019-09-21 06:14] LABS: BASO # 0.1 10*3/uL (0.0-0.1); BASO % 0.4 % (0.0-1.0); EOS # 0.3 10*3/uL (0.0-0.4); EOS % 1.9 % (1.0-4.0); LYMPH # 1.6 10*3/uL (1.3-4.4); LYMPH % 11.7 % (27.0-41.0); MEAN CELL VOLUME 88.9 fl (80.0-94.0); MEAN CORPUSCULAR HGB 27.6 pg (27.0-31.0); MEAN PLATELET VOLUME 10.9 fl (9.6-12.3); MONO # 0.7 10*3/uL (0.1-1.0); NEUT % 80.3 % (47.0-73.0); PLATELET COUNT AUTOMATED 221 10*3/uL (130-400); RED CELL DISTRI WIDTH 15.2 % (0-14.5); WHITE BLOOD COUNT 13.7 10*3/uL (4.8-10.8)
[2019-09-21 06:24] LABS: BUN 23 mg/dl (7-24); CHLORIDE 105 mmol/L (98-107); CREATININE 1.28 mg/dL (0.70-1.30); POTASSIUM 4.1 mmol/L (3.5-5.1); SODIUM 137 mmol/L (136-145)
--- NOTE | 2019-09-21 07:35 | NUR ---
Updated clinicals faxed to [facility] for review. Patient is observation, therfore [facility] stating he is ok to return without precert when medically stable.
[2019-09-21 08:00] VITALS: BP 108/68
[2019-09-21 12:00] VITALS: BP 119/78
--- NOTE | 2019-09-21 15:18 | NUR ---
Patient is discharged to return to [facility] via [facility] at 5PM. NH notified, DC orders faxed. Nursing/wardrobe coordinator and Patients brother all notified.
--- NOTE | 2019-09-21 15:20 | NUR ---
PHYSICAL THERAPY Patient planning to return to [facility] this date, per case management and nursing staff. Will follow. Thank you. Maureen Edgar,PT,DPT
--- NOTE | 2019-09-21 16:15 | NUR ---
PT REFUSED WOUND PHOTOS.
--- NOTE | 2019-09-21 17:49 | NUR ---
Discharge instructions reviewed with patient/family. Patient receptive and verbalizes understanding. Follow-up care arranged. Written instructions given to patient/family. RAFIQ ARAGON
== END 2019-09-21 18:08 | disposition other institution (70) ==
LOC: ED 01:34 → 4E 03:24 → EDHOLD 03:24 → 4E 04:06
PROVIDERS: Emergency Medicine; Internal Medicine; Student in an Organized Health Care Education/Training Program; ADMIT Internal Medicine
DX: J18.9 Pneumonia, unspecified organism (principal); I13.0 Hypertensive heart and chronic kidney disease with heart failure and stage 1 through stage 4 chronic kidney disease, or unspecified chronic kidney disease; I50.9 Heart failure, unspecified; N18.9 Chronic kidney disease, unspecified; D72.829 Elevated white blood cell count, unspecified; A41.9 Sepsis, unspecified organism; E78.2 Mixed hyperlipidemia; E03.9 Hypothyroidism, unspecified; F31.9 Bipolar disorder, unspecified; M19.90 Unspecified osteoarthritis, unspecified site; J44.9 Chronic obstructive pulmonary disease, unspecified; E55.9 Vitamin D deficiency, unspecified; M10.9 Gout, unspecified; D64.9 Anemia, unspecified; K21.9 Gastro-esophageal reflux disease without esophagitis; Z20.828 Contact with and (suspected) exposure to other viral communicable diseases

== ENCOUNTER 2019-10-25 11:25 | Observation (INO) | payer MEDICARE ==
[~2019-10-25] VITALS: Ht 188 cm; Wt 177.6 kg
[~2019-10-25 11:25] MED LIST changes: +ALBUTEROL1.25 MG/3 INH; +FLEET ENEMA EX230 M1 R; +GENTLE LAXATIVE10 MG R; +MILK OF MA400 MG/5 M PO; +TYLENOL325 M1 PO
[2019-10-25 11:30] VITALS: BP 112/58
[2019-10-25 11:51] LABS: BASO # 0.1 10*3/uL (0.0-0.1); BASO % 0.4 % (0.0-1.0); EOS # 0.3 10*3/uL (0.0-0.4); EOS % 1.9 % (1.0-4.0); HEMATOCRIT 38.6 % (42.0-52.0); LYMPH # 1.4 10*3/uL (1.3-4.4); LYMPH % 10.6 % (27.0-41.0); MEAN CELL VOLUME 85.6 fl (80.0-94.0); MEAN CORPUSCULAR HGB 26.8 pg (27.0-31.0); MEAN CORPUSCULAR HGB CONC 31.3 g/dl (33.0-37.0); MEAN PLATELET VOLUME 11.1 fl (9.6-12.3); MONO # 0.8 10*3/uL (0.1-1.0); MONO % 5.8 % (3.0-9.0); NEUT # 10.8 10*3/uL (2.3-7.9); NEUT % 80.6 % (47.0-73.0); PLATELET COUNT AUTOMATED 227 10*3/uL (130-400); RED BLOOD COUNT 4.51 10*6/uL (4.50-5.90); RED CELL DISTRI WIDTH 14.9 % (0-14.5); WHITE BLOOD COUNT 13.4 10*3/uL (4.8-10.8)
[2019-10-25 12:03] LABS: ACT PARTIAL THROMBO TIME 27.1 SECONDS (20.0-32.1)
[2019-10-25 12:08] LABS: ALBUMIN 2.7 gm/dl (3.1-4.5); ALKALINE PHOSPHATASE 97 U/L (45-117); BUN 26 mg/dl (7-24); CHLORIDE 103 mmol/L (98-107); POTASSIUM 4.1 mmol/L (3.5-5.1); SGOT/AST 12 IU/L (3-35); SGPT/ALT 26 U/L (12-78); SODIUM 136 mmol/L (136-145); TOTAL PROTEIN 8.2 gm/dL (6.4-8.2)
[2019-10-25 12:12] LABS: TROPONIN I < 0.015 ng/ml (<0.045)
--- NOTE | 2019-10-25 13:49 | NUR ---
BED ASSIGNMENT RECEIVED FOR PT. CONTINUED ATTEMPTS TO OBTAIN IV ACCESS IN PROCESS.
[2019-10-25 14:22] VITALS: BP 100/60
--- NOTE | 2019-10-25 14:25 | NUR ---
A 64, admitted to , under the services of JAKE Moreno DO with a diagnosis of CHEST PAIN. Chief complaint is LEFT SIDED CHEST PAIN. Patient arrived via stretcher from ER. Monitor applied. Initial assessment completed. Vital signs taken and recorded. JAKE MORENO DO notified of admission to the unit. Orders received. See assessment for past medical history, medications and allergies. Patient and/or family oriented to unit. [facility] visitation policy reviewed. Clothing/patient valuable form completed. PACKER
[2019-10-25 16:00] VITALS: BP 107/59
--- NOTE | 2019-10-25 16:30 | NUR ---
DR PANDEY'S ANSWERING SERVICE NOTIFIED OF CONSULT.
--- NOTE | 2019-10-25 18:56 | NUR ---
PT RETURNED FROM CT SCAN. IV ANTIBIOTICS STARTED PER ORDER. IV LASIX GIVEN PRIOR TO CT SCAN.
[2019-10-25 20:00] VITALS: BP 106/45
--- NOTE | 2019-10-25 20:00 | NUR ---
Pt started on incentive spirometer. Encouraged 10 breaths an hour. Pt placed on 2L NC. 89% on room air
--- NOTE | 2019-10-25 20:04 | NUR ---
NOTIFIED DR POOLE THAT PATIENT'S BLOOD PRESSURE IS 98/48 AND PATIENT IS HAVING CHEST PAIN. PATIENT'S BLOOD PRESSURES HAVE BEEN RUNNING ON THE LOWER SIDE, BUT THIS IS THE LOWEST. PATIENT WAS ALSO 89% ON ROOM AIR SO I PLACED HIM ON 2L O2 NC. DR POOLE ORDERED ANOTHER TROPONIN ON HIM. WILL LOOK FOR RESULTS.
[2019-10-25 20:06] VITALS: BP 98/48; BP 98/49
[2019-10-26] VITALS: BP 108/48
--- NOTE | 2019-10-26 04:39 | NUR ---
NOTIFIED DR POOLE THAT PATIENT'S MONITOR STRIP SHOWED PATIENT GOING IN AND OUT OF BIGIN. PATIENT IS NOW BACK INTO [facility]. NO NEW ORDERS. PATIENT ASYMPTOMATIC.
[2019-10-26 06:02] LABS: BASO # 0.1 10*3/uL (0.0-0.1); BASO % 0.4 % (0.0-1.0); EOS # 0.3 10*3/uL (0.0-0.4); EOS % 2.4 % (1.0-4.0); HEMATOCRIT 37.1 % (42.0-52.0); LYMPH # 1.8 10*3/uL (1.3-4.4); LYMPH % 12.8 % (27.0-41.0); MEAN CELL VOLUME 85.9 fl (80.0-94.0); MEAN CORPUSCULAR HGB 26.9 pg (27.0-31.0); MEAN CORPUSCULAR HGB CONC 31.3 g/dl (33.0-37.0); MEAN PLATELET VOLUME 11.1 fl (9.6-12.3); MONO # 0.8 10*3/uL (0.1-1.0); MONO % 5.7 % (3.0-9.0); NEUT # 11.1 10*3/uL (2.3-7.9); NEUT % 78.2 % (47.0-73.0); PLATELET COUNT AUTOMATED 219 10*3/uL (130-400); RED BLOOD COUNT 4.32 10*6/uL (4.50-5.90); RED CELL DISTRI WIDTH 14.8 % (0-14.5); WHITE BLOOD COUNT 14.1 10*3/uL (4.8-10.8)
[2019-10-26 06:46] LABS: CHLORIDE 104 mmol/L (98-107); POTASSIUM 3.8 mmol/L (3.5-5.1); SODIUM 137 mmol/L (136-145)
[2019-10-26 06:55] LABS: ALBUMIN 2.6 gm/dl (3.1-4.5); ALKALINE PHOSPHATASE 81 U/L (45-117); BUN 23 mg/dl (7-24); CHOLESTEROL 121 mg/dL (<200); CREATININE 1.31 mg/dL (0.70-1.30); FREE T4 1.24 ng/dl (0.76-1.46); HDL CHOLESTEROL 32 mg/dl (40-60); LDL CHOLESTEROL 68 mg/dL (9-159); SGOT/AST 11 IU/L (3-35); SGPT/ALT 25 U/L (12-78); TOTAL PROTEIN 7.9 gm/dL (6.4-8.2); TRIGLYCERIDES 107 mg/dl (<150); VLDL CHOLESTEROL 21 mg/dL (6-40)
[2019-10-26 07:21] LABS: THYROID STIM HORMONE (HS) 0.235 uIU/ml (0.358-4.75)
--- NOTE | 2019-10-26 07:29 | NUR ---
Nursing screen received and chart reviewed. Patient admitted from [facility] for chest pain. If patient has a decline in ADLs, transfers, or mobility, please send OT orders. Thank you. Su Hayes, OTR/L
[2019-10-26 08:00] VITALS: BP 120/52
--- NOTE | 2019-10-26 08:25 | NUR ---
PATIENT PRESENTS FROM [facility]. PATIENT CAN RETURN TO [facility] WHEN MEDICALLY STABLE.
--- NOTE | 2019-10-26 08:26 | NUR ---
PHYSICAL THERAPY Screen received pt admitted from [facility] with c/o chest pain please consult PT if pt has a decline in functional status below baseline, thank you. Bernadine Nettles PT
--- NOTE | 2019-10-26 09:00 | NUR ---
Hammer Driver in to talk to patient. Patient states lives at [facility] with residents. There are no steps in the home. Physician: nohelia doctor Pharmacy: per [facility] Home health services: none Patient's level of ADLs: MINIMAL ASSIST Patient has working utilities: all working DME: [employer] Follow-up physician's appointment after d/c: will be made by hospitalist nurse director upon discharge Does patient want to access PORTAL?: no Discharge plan discussed with patient, he stated he is skilled care at [facility] and would like to return when discharged, menu planner will contact [facility] and will see if patient is able to return. ASHLEY OLSON
--- NOTE | 2019-10-26 11:27 | NUR ---
Patient comes in from [facility] short term. As long as patient stays in oberservation status he will not require a precert to return. Patient will require a covid test prior to return, but pending results are ok.
[2019-10-26 12:00] VITALS: BP 122/66
[2019-10-26 16:00] VITALS: BP 110/58
[2019-10-26 20:00] VITALS: BP 98/56
[2019-10-27] VITALS: BP 105/51
--- NOTE | 2019-10-27 03:36 | NUR ---
24 HR chart check completed.
[2019-10-27 06:02] LABS: BASO % 0.3 % (0.0-1.0); EOS # 0.4 10*3/uL (0.0-0.4); EOS % 2.4 % (1.0-4.0); HEMATOCRIT 37.5 % (42.0-52.0); LYMPH # 2.1 10*3/uL (1.3-4.4); LYMPH % 13.9 % (27.0-41.0); MEAN CORPUSCULAR HGB 26.8 pg (27.0-31.0); MEAN CORPUSCULAR HGB CONC 31.2 g/dl (33.0-37.0); MEAN PLATELET VOLUME 11.1 fl (9.6-12.3); MONO % 6.8 % (3.0-9.0); NEUT # 11.2 10*3/uL (2.3-7.9); NEUT % 75.8 % (47.0-73.0); PLATELET COUNT AUTOMATED 201 10*3/uL (130-400); RED BLOOD COUNT 4.36 10*6/uL (4.50-5.90); WHITE BLOOD COUNT 14.8 10*3/uL (4.8-10.8)
[2019-10-27 06:35] LABS: BUN 24 mg/dl (7-24); CHLORIDE 103 mmol/L (98-107); CREATININE 1.23 mg/dL (0.70-1.30); POTASSIUM 3.8 mmol/L (3.5-5.1); SODIUM 137 mmol/L (136-145)
[2019-10-27 08:00] VITALS: BP 141/64
--- NOTE | 2019-10-27 08:00 | NUR ---
Alert and oriented x3. Pleasant and cooperative. Denies chest pain this am. Flat affect. No complaints.
[2019-10-27 12:00] VITALS: BP 97/54
[2019-10-27] MEDS ORDERED: ZITHROMAX TRI-500 M1 PO (14:10)
[2019-10-27] MEDS ORDERED: MUCUS RELIEF600 MG PO (14:11)
--- NOTE | 2019-10-27 14:30 | NUR ---
IV and monitor removed. Pt just walked back from the rest room without O2 pox was 97%.
--- NOTE | 2019-10-27 15:10 | NUR ---
Pt dc in care of [facility] to [facility]. Spoke with nurse from [facility] and nurse to nurse report given.
== END 2019-10-27 15:05 | disposition home or self-care (01) ==
LOC: ED 11:25 → EDHOLD 13:03 → 4E 13:03
PROVIDERS: Family Medicine; Internal Medicine; ADMIT Student in an Organized Health Care Education/Training Program; ATTEND Student in an Organized Health Care Education/Training Program
DX: R07.89 Other chest pain (principal); I25.10 Atherosclerotic heart disease of native coronary artery without angina pectoris; M10.9 Gout, unspecified; K21.9 Gastro-esophageal reflux disease without esophagitis; I13.0 Hypertensive heart and chronic kidney disease with heart failure and stage 1 through stage 4 chronic kidney disease, or unspecified chronic kidney disease; I50.32 Chronic diastolic (congestive) heart failure; N18.3 Chronic kidney disease, stage 3 (moderate); E78.2 Mixed hyperlipidemia; F31.9 Bipolar disorder, unspecified; E03.9 Hypothyroidism, unspecified; J44.9 Chronic obstructive pulmonary disease, unspecified; D72.829 Elevated white blood cell count, unspecified; D64.9 Anemia, unspecified; J18.9 Pneumonia, unspecified organism; Z20.828 Contact with and (suspected) exposure to other viral communicable diseases

== ENCOUNTER 2020-01-04 18:14 | Inpatient (IN) | payer MEDICARE ==
[~2020-01-04] VITALS: Ht 190.5 cm
[~2020-01-04 18:14] MED LIST changes: +MUCUS RELIEF600 MG PO; +ZITHROMAX TRI-500 M1 PO
[2020-01-04 18:52] VITALS: BP 131/59
[2020-01-04 19:15] LABS: BASO # 0.1 10*3/uL (0.0-0.1); BASO % 0.4 % (0.0-1.0); EOS # 0.2 10*3/uL (0.0-0.4); EOS % 1.4 % (1.0-4.0); HEMATOCRIT 38.1 % (42.0-52.0); LYMPH # 1.7 10*3/uL (1.3-4.4); LYMPH % 10.2 % (27.0-41.0); MEAN CELL VOLUME 85.2 fl (80.0-94.0); MEAN CORPUSCULAR HGB 26.6 pg (27.0-31.0); MEAN CORPUSCULAR HGB CONC 31.2 g/dl (33.0-37.0); MEAN PLATELET VOLUME 11.4 fl (9.6-12.3); MONO # 0.9 10*3/uL (0.1-1.0); MONO % 5.3 % (3.0-9.0); NEUT # 13.3 10*3/uL (2.3-7.9); NEUT % 82.1 % (47.0-73.0); PLATELET COUNT AUTOMATED 228 10*3/uL (130-400); RED BLOOD COUNT 4.47 10*6/uL (4.50-5.90); RED CELL DISTRI WIDTH 15.7 % (0-14.5); WHITE BLOOD COUNT 16.2 10*3/uL (4.8-10.8)
[2020-01-04 19:21] LABS: BILIRUBIN Negative (Negative); BLOOD Negative (Negative); CLARITY Clear (Clear); COLOR Yellow (Yellow); GLUCOSE Negative (Negative); KETONE Negative (Negative); LEUKO ESTERASE Negative (Negative); NITRITE Negative (Negative); SPECIFIC GRAVITY 1.015 (1.001-1.030); UROBILINOGEN 0.2 E.U./dl (0.0-1.0)
[2020-01-04 19:29] LABS: ACT PARTIAL THROMBO TIME 28.5 SECONDS (20.0-32.1); INTERNATIONAL NORM RATIO 1.1 (2.0-3.5)
[2020-01-04 19:31] LABS: URINE AMPHETAMINES < 1000 (1000ng/ml); URINE BARBITURATES < 200 (200ng/ml); URINE BENZODIAZEPINES < 200 (200ng/ml); URINE CANNABINOIDS (THC) < 50 (50ng/ml); URINE COCAINE < 300 (300ng/ml); URINE METHADONE < 300 (300ng/ml); URINE OPIATES < 300 (300ng/ml)
[2020-01-04 19:33] LABS: BACTERIA TRACE; RBC 0-2 rbc/hpf (0-2)
[2020-01-04 19:34] LABS: ALBUMIN 2.8 gm/dl (3.1-4.5); BUN 24 mg/dl (7-24); CHLORIDE 100 mmol/L (98-107); CREATININE 1.52 mg/dL (0.70-1.30); POTASSIUM 4.1 mmol/L (3.5-5.1); SGOT/AST 14 IU/L (3-35); SGPT/ALT 25 U/L (12-78); SODIUM 132 mmol/L (136-145); TOTAL PROTEIN 8.1 gm/dL (6.4-8.2)
[2020-01-04 19:37] LABS: ALKALINE PHOSPHATASE 89 U/L (45-117)
[2020-01-04 19:38] LABS: URINE PHENCYCLIDINE < 25 (25ng/ml)
[2020-01-04 19:40] LABS: TROPONIN I < 0.015 ng/ml (<0.045)
[2020-01-04 23:30] VITALS: BP 148/90
[2020-01-05 03:45] VITALS: BP 139/86
[2020-01-05 12:59] VITALS: BP 127/80
[2020-01-05 20:00] VITALS: BP 98/45
[2020-01-06] VITALS: BP 106/44
[2020-01-06 12:00] VITALS: BP 126/64
[2020-01-06 16:00] VITALS: BP 115/58
[2020-01-06 20:00] VITALS: BP 133/57
[2020-01-07] VITALS: BP 134/63
[2020-01-07 06:10] LABS: HEMATOCRIT 37.9 % (42.0-52.0); MEAN CELL VOLUME 85.2 fl (80.0-94.0); MEAN CORPUSCULAR HGB 26.1 pg (27.0-31.0); MEAN CORPUSCULAR HGB CONC 30.6 g/dl (33.0-37.0); MEAN PLATELET VOLUME 11.6 fl (9.6-12.3); PLATELET COUNT AUTOMATED 227 10*3/uL (130-400); RED BLOOD COUNT 4.45 10*6/uL (4.50-5.90); RED CELL DISTRI WIDTH 15.3 % (0-14.5); WHITE BLOOD COUNT 18.7 10*3/uL (4.8-10.8)
[2020-01-07 06:28] LABS: BUN 27 mg/dl (7-24); CHLORIDE 101 mmol/L (98-107); CREATININE 1.38 mg/dL (0.70-1.30); POTASSIUM 4.6 mmol/L (3.5-5.1); SODIUM 133 mmol/L (136-145)
[2020-01-07 08:00] VITALS: BP 126/72
[2020-01-07] MEDS ORDERED: CEFUROXIME AXE250 MG PO ×2 (08:06)
[2020-01-07] MEDS ORDERED: GLUCOPHAGE500 MG PO (08:06)
[2020-01-07] MEDS ORDERED: PREDNISONE5 MG PO ×2 (08:06)
[2020-01-07 08:25] LABS: PLATELET SUFFICIENCY NORMAL (NORMAL); ROULEAUX MODERATE; TOTAL CELLS COUNTED 100 #CELLS
== END 2020-01-07 14:26 | disposition home or self-care (01) | DRG 191 ==
LOC: ED 18:14 → EDHOLD 20:44 → 5E 01-05 14:42
PROVIDERS: Emergency Medicine; Internal Medicine; ADMIT Internal Medicine; ATTEND Internal Medicine
DX: J44.1 Chronic obstructive pulmonary disease with (acute) exacerbation (principal); E87.1 Hypo-osmolality and hyponatremia; Z68.42 Body mass index [BMI] 45.0-49.9, adult; J96.10 Chronic respiratory failure, unspecified whether with hypoxia or hypercapnia; N18.31 Chronic kidney disease, stage 3a; E66.01 Morbid (severe) obesity due to excess calories; I12.9 Hypertensive chronic kidney disease with stage 1 through stage 4 chronic kidney disease, or unspecified chronic kidney disease; E11.22 Type 2 diabetes mellitus with diabetic chronic kidney disease; T38.0X5A Adverse effect of glucocorticoids and synthetic analogues, initial encounter; E78.2 Mixed hyperlipidemia; F31.9 Bipolar disorder, unspecified; D64.9 Anemia, unspecified; L92.9 Granulomatous disorder of the skin and subcutaneous tissue, unspecified; M1A.9XX0 Chronic gout, unspecified, without tophus (tophi); E11.65 Type 2 diabetes mellitus with hyperglycemia; M19.90 Unspecified osteoarthritis, unspecified site; K21.9 Gastro-esophageal reflux disease without esophagitis; I25.10 Atherosclerotic heart disease of native coronary artery without angina pectoris; E89.0 Postprocedural hypothyroidism; Z79.899 Other long term (current) drug therapy; Z87.891 Personal history of nicotine dependence; Y92.89 Other specified places as the place of occurrence of the external cause; Z82.49 Family history of ischemic heart disease and other diseases of the circulatory system

== ENCOUNTER 2020-02-06 12:56 | Emergency (ER) | payer MEDICARE ==
[~2020-02-06 12:56] MED LIST changes: +CEFUROXIME AXE250 MG PO; +GLUCOPHAGE500 MG PO; +PREDNISONE5 MG PO
[2020-02-06 13:18] LABS: BASO # 0.1 10*3/uL (0.0-0.1); BASO % 0.4 % (0.0-1.0); EOS # 0.2 10*3/uL (0.0-0.4); EOS % 1.4 % (1.0-4.0); HEMATOCRIT 38.5 % (42.0-52.0); LYMPH # 1.7 10*3/uL (1.3-4.4); LYMPH % 12.1 % (27.0-41.0); MEAN CELL VOLUME 85.4 fl (80.0-94.0); MEAN CORPUSCULAR HGB 26.2 pg (27.0-31.0); MEAN CORPUSCULAR HGB CONC 30.6 g/dl (33.0-37.0); MEAN PLATELET VOLUME 11.4 fl (9.6-12.3); MONO # 0.9 10*3/uL (0.1-1.0); MONO % 6.5 % (3.0-9.0); NEUT # 11.3 10*3/uL (2.3-7.9); NEUT % 79.2 % (47.0-73.0); PLATELET COUNT AUTOMATED 246 10*3/uL (130-400); RED BLOOD COUNT 4.51 10*6/uL (4.50-5.90); RED CELL DISTRI WIDTH 15.9 % (0-14.5); WHITE BLOOD COUNT 14.2 10*3/uL (4.8-10.8)
[2020-02-06 13:30] LABS: ACT PARTIAL THROMBO TIME 27.3 SECONDS (20.0-32.1)
[2020-02-06 13:40] LABS: ALBUMIN 2.9 gm/dl (3.1-4.5); ALKALINE PHOSPHATASE 120 U/L (45-117); BUN 24 mg/dl (7-24); CHLORIDE 102 mmol/L (98-107); POTASSIUM 4.3 mmol/L (3.5-5.1); SGOT/AST 20 IU/L (3-35); SGPT/ALT 44 U/L (12-78); SODIUM 136 mmol/L (136-145); TOTAL PROTEIN 8.1 gm/dL (6.4-8.2)
[2020-02-06 13:41] LABS: TROPONIN I < 0.015 ng/ml (<0.045)
[2020-02-06] MEDS ORDERED: PREDNISONE50 MG PO (16:25)
[2020-02-06] MEDS ORDERED: OMNICEF300 MG PO (16:25)
[2020-02-06] MEDS ORDERED: AVPAK AZITHROM250 M1 PO (16:25)
== END 2020-02-06 17:07 ==
LOC: ED 12:56
PROVIDERS: Internal Medicine
DX: J44.1 Chronic obstructive pulmonary disease with (acute) exacerbation (principal); R07.9 Chest pain, unspecified; L03.116 Cellulitis of left lower limb; Z79.899 Other long term (current) drug therapy

== ENCOUNTER 2020-02-28 18:50 | Observation (INO) | payer MEDICARE ==
[~2020-02-28] VITALS: Ht 188 cm; Wt 45.4 kg
[~2020-02-28 18:50] MED LIST changes: +PREDNISONE50 MG PO
[2020-02-28 18:55] VITALS: BP 124/71
[2020-02-28] MEDS ORDERED: ARIPIPRAZOLE10 MG PO (19:09)
[2020-02-28] MEDS ORDERED: BUPROPION XL300 MG PO (19:10)
[2020-02-28] MEDS ORDERED: FEROSUL325 M1 PO (19:10)
[2020-02-28] MEDS ORDERED: FUROSEMIDE40 MG PO (19:11)
[2020-02-28] MEDS ORDERED: LEVOTHYROXINE150 MCG PO (19:12)
[2020-02-28] MEDS ORDERED: ANORO ELLIPTA1 EACH PO (19:16)
[2020-02-28] MEDS ORDERED: NATURE'S BLEND F1 MG PO (19:17)
[2020-02-28] MEDS ORDERED: ISOSORBIDE30 MG PO (19:18)
[2020-02-28] MEDS ORDERED: METFORMIN HYD1000 MG PO (19:19)
[2020-02-28] MEDS ORDERED: POTASSIUM CHLO20 ME4 PO (19:21)
[2020-02-28] MEDS ORDERED: PRAVASTATIN SOD20 MG PO (19:22)
[2020-02-28] MEDS ORDERED: ISO D3 2,000 U1 EACH PO (19:23)
[2020-02-28] MEDS ORDERED: ACETAMINOPHEN500 M4 PO (19:24)
[2020-02-28] MEDS ORDERED: [UNRECOGNIZED DRUG - OTHER] MC (19:25)
[2020-02-28] MEDS ORDERED: ONETOUCH VERIO1 EACH MC (19:25)
[2020-02-28] MEDS ORDERED: ONETOUCH LANCE1 EACH MC (19:25)
[2020-02-28] MEDS ORDERED: VENT7GM INH ×2 (19:26→19:32)
[2020-02-28] MEDS ORDERED: FLEET ENEMA 13133 ML R (19:27)
[2020-02-28] MEDS ORDERED: LOPERAMIDE HCL2 MG PO (19:29)
[2020-02-28] MEDS ORDERED: MILK OF MA400 MG/51 PO (19:30)
[2020-02-28] MEDS ORDERED: NITROSTAT0.4 MG SL (19:31)
[2020-02-28 19:50] LABS: BASO # 0.1 10*3/uL (0.0-0.1); BASO % 0.4 % (0.0-1.0); EOS # 0.2 10*3/uL (0.0-0.4); EOS % 1.5 % (1.0-4.0); HEMATOCRIT 38.9 % (42.0-52.0); LYMPH # 1.3 10*3/uL (1.3-4.4); LYMPH % 8.7 % (27.0-41.0); MEAN CORPUSCULAR HGB 26.6 pg (27.0-31.0); MEAN CORPUSCULAR HGB CONC 30.6 g/dl (33.0-37.0); MEAN PLATELET VOLUME 11.1 fl (9.6-12.3); MONO # 0.8 10*3/uL (0.1-1.0); MONO % 5.6 % (3.0-9.0); NEUT % 83.2 % (47.0-73.0); PLATELET COUNT AUTOMATED 206 10*3/uL (130-400); RED BLOOD COUNT 4.47 10*6/uL (4.50-5.90); RED CELL DISTRI WIDTH 16.1 % (0-14.5); WHITE BLOOD COUNT 14.5 10*3/uL (4.8-10.8)
[2020-02-28 20:14] LABS: BILIRUBIN Negative (Negative); BLOOD Negative (Negative); CLARITY Clear (Clear); COLOR Yellow (Yellow); GLUCOSE Negative (Negative); KETONE Negative (Negative); LEUKO ESTERASE Negative (Negative); NITRITE Negative (Negative); SPECIFIC GRAVITY 1.015 (1.001-1.030); UROBILINOGEN 0.2 E.U./dl (0.0-1.0)
[2020-02-28 20:14] LABS: ALBUMIN 2.9 gm/dl (3.1-4.5); BUN 25 mg/dl (7-24); CHLORIDE 105 mmol/L (98-107); POTASSIUM 4.1 mmol/L (3.5-5.1); SGOT/AST 16 IU/L (3-35); SGPT/ALT 29 U/L (12-78); SODIUM 139 mmol/L (136-145); TOTAL PROTEIN 7.8 gm/dL (6.4-8.2)
[2020-02-28 20:17] LABS: ALKALINE PHOSPHATASE 90 U/L (45-117)
[2020-02-28 20:22] LABS: TROPONIN I < 0.015 ng/ml (<0.045)
[2020-02-28 20:37] LABS: BACTERIA TRACE; WBC 0-2 wbc/hpf (0-5)
[2020-02-29 02:26] VITALS: BP 100/39
[2020-02-29 04:29] VITALS: BP 98/46
[2020-02-29 05:40] LABS: BUN 26 mg/dl (7-24); CHLORIDE 107 mmol/L (98-107); CREATININE 1.29 mg/dL (0.70-1.30); POTASSIUM 4.1 mmol/L (3.5-5.1); SODIUM 139 mmol/L (136-145)
[2020-02-29 06:14] LABS: BASO # 0.1 10*3/uL (0.0-0.1); BASO % 0.4 % (0.0-1.0); EOS # 0.3 10*3/uL (0.0-0.4); EOS % 2.2 % (1.0-4.0); HEMATOCRIT 36.8 % (42.0-52.0); LYMPH # 1.7 10*3/uL (1.3-4.4); LYMPH % 14.8 % (27.0-41.0); MEAN CELL VOLUME 85.6 fl (80.0-94.0); MEAN CORPUSCULAR HGB 26.3 pg (27.0-31.0); MEAN CORPUSCULAR HGB CONC 30.7 g/dl (33.0-37.0); MEAN PLATELET VOLUME 11.9 fl (9.6-12.3); MONO # 0.6 10*3/uL (0.1-1.0); MONO % 5.2 % (3.0-9.0); NEUT # 8.8 10*3/uL (2.3-7.9); PLATELET COUNT AUTOMATED 184 10*3/uL (130-400); RED CELL DISTRI WIDTH 16.1 % (0-14.5); WHITE BLOOD COUNT 11.5 10*3/uL (4.8-10.8)
[2020-02-29 11:40] VITALS: BP 116/61
[2020-02-29 16:00] VITALS: BP 111/57
[2020-02-29 20:00] VITALS: BP 115/67
[2020-03-01] VITALS: BP 135/61
[2020-03-01 06:28] LABS: BASO % 0.3 % (0.0-1.0); EOS # 0.3 10*3/uL (0.0-0.4); EOS % 2.2 % (1.0-4.0); HEMATOCRIT 36.8 % (42.0-52.0); LYMPH # 1.5 10*3/uL (1.3-4.4); LYMPH % 12.8 % (27.0-41.0); MEAN CELL VOLUME 85.4 fl (80.0-94.0); MEAN CORPUSCULAR HGB 26.5 pg (27.0-31.0); MEAN PLATELET VOLUME 11.8 fl (9.6-12.3); MONO # 0.6 10*3/uL (0.1-1.0); MONO % 5.4 % (3.0-9.0); NEUT # 9.3 10*3/uL (2.3-7.9); NEUT % 78.8 % (47.0-73.0); PLATELET COUNT AUTOMATED 196 10*3/uL (130-400); RED BLOOD COUNT 4.31 10*6/uL (4.50-5.90); RED CELL DISTRI WIDTH 15.9 % (0-14.5); WHITE BLOOD COUNT 11.8 10*3/uL (4.8-10.8)
[2020-03-01 08:00] VITALS: BP 113/65
[2020-03-01 12:00] VITALS: BP 123/70
[2020-03-01 16:00] VITALS: BP 119/55
[2020-03-01 20:00] VITALS: BP 119/66
[2020-03-02] VITALS: BP 112/63
[2020-03-02 07:36] LABS: BASO # 0.1 10*3/uL (0.0-0.1); BASO % 0.4 % (0.0-1.0); EOS # 0.3 10*3/uL (0.0-0.4); HEMATOCRIT 36.9 % (42.0-52.0); LYMPH # 1.7 10*3/uL (1.3-4.4); LYMPH % 14.8 % (27.0-41.0); MEAN CELL VOLUME 84.1 fl (80.0-94.0); MEAN CORPUSCULAR HGB 26.9 pg (27.0-31.0); MEAN PLATELET VOLUME 11.1 fl (9.6-12.3); MONO # 0.7 10*3/uL (0.1-1.0); MONO % 6.4 % (3.0-9.0); NEUT # 8.5 10*3/uL (2.3-7.9); PLATELET COUNT AUTOMATED 197 10*3/uL (130-400); RED BLOOD COUNT 4.39 10*6/uL (4.50-5.90); RED CELL DISTRI WIDTH 16.1 % (0-14.5); WHITE BLOOD COUNT 11.3 10*3/uL (4.8-10.8)
[2020-03-02 08:00] VITALS: BP 113/70
[2020-03-02 12:00] VITALS: BP 138/53
[2020-03-02 20:00] VITALS: BP 126/50
[2020-03-03] VITALS: BP 136/60
[2020-03-03 06:46] LABS: BASO # 0.1 10*3/uL (0.0-0.1); BASO % 0.4 % (0.0-1.0); EOS # 0.4 10*3/uL (0.0-0.4); EOS % 3.4 % (1.0-4.0); HEMATOCRIT 36.4 % (42.0-52.0); LYMPH # 1.6 10*3/uL (1.3-4.4); LYMPH % 13.5 % (27.0-41.0); MEAN CELL VOLUME 86.5 fl (80.0-94.0); MEAN CORPUSCULAR HGB 26.6 pg (27.0-31.0); MEAN CORPUSCULAR HGB CONC 30.8 g/dl (33.0-37.0); MEAN PLATELET VOLUME 11.6 fl (9.6-12.3); MONO # 0.7 10*3/uL (0.1-1.0); MONO % 6.3 % (3.0-9.0); NEUT # 8.8 10*3/uL (2.3-7.9); NEUT % 75.9 % (47.0-73.0); PLATELET COUNT AUTOMATED 169 10*3/uL (130-400); RED BLOOD COUNT 4.21 10*6/uL (4.50-5.90); RED CELL DISTRI WIDTH 16.1 % (0-14.5); WHITE BLOOD COUNT 11.6 10*3/uL (4.8-10.8)
[2020-03-03 07:04] LABS: ALBUMIN 2.5 gm/dl (3.1-4.5); ALKALINE PHOSPHATASE 83 U/L (45-117); BUN 11 mg/dl (7-24); CHLORIDE 106 mmol/L (98-107); CREATININE 0.81 mg/dL (0.70-1.30); SGOT/AST 18 IU/L (3-35); SGPT/ALT 29 U/L (12-78); SODIUM 140 mmol/L (136-145); TOTAL PROTEIN 6.9 gm/dL (6.4-8.2)
[2020-03-03 08:00] VITALS: BP 116/56
== END 2020-03-03 12:12 | disposition other institution (70) ==
LOC: ED 18:50 → EDHOLD 22:33 → 5E 22:33 → EDHOLD 22:33 → 5E 22:33 → EDHOLD 02-29 09:58 → 5E 02-29 10:45
PROVIDERS: Emergency Medicine; Internal Medicine; ADMIT Internal Medicine; ATTEND Internal Medicine
DX: R42 Dizziness and giddiness (principal); N17.0 Acute kidney failure with tubular necrosis; I95.9 Hypotension, unspecified; R62.7 Adult failure to thrive; I25.10 Atherosclerotic heart disease of native coronary artery without angina pectoris; E03.9 Hypothyroidism, unspecified; G47.00 Insomnia, unspecified; F32.9 Major depressive disorder, single episode, unspecified; I12.9 Hypertensive chronic kidney disease with stage 1 through stage 4 chronic kidney disease, or unspecified chronic kidney disease; N18.30 Chronic kidney disease, stage 3 unspecified; E11.22 Type 2 diabetes mellitus with diabetic chronic kidney disease; J44.9 Chronic obstructive pulmonary disease, unspecified; F31.9 Bipolar disorder, unspecified; Z20.828 Contact with and (suspected) exposure to other viral communicable diseases

== ENCOUNTER 2020-06-16 17:24 | Observation (INO) | payer MEDICARE ==
[~2020-06-16] VITALS: Ht 190.5 cm; Wt 166.2 kg
[~2020-06-16 17:24] MED LIST changes: +ACETAMINOPHEN500 M4 PO; +ANORO ELLIPTA1 EACH PO; +ARIPIPRAZOLE10 MG PO; +BUPROPION XL300 MG PO; +FEROSUL325 M1 PO; +FLEET ENEMA 13133 ML R; +ISO D3 2,000 U1 EACH PO; +ISOSORBIDE30 MG PO; +LEVOTHYROXINE150 MCG PO; +LOPERAMIDE HCL2 MG PO; +METFORMIN HYD1000 MG PO; +MILK OF MA400 MG/51 PO; +ONETOUCH LANCE1 EACH MC; +ONETOUCH VERIO1 EACH MC; +POTASSIUM CHLO20 ME4 PO; +VENT7GM INH; +[UNRECOGNIZED DRUG - OTHER] MC
[2020-06-16 17:36] VITALS: BP 153/90
[2020-06-16 17:55] LABS: BASO # 0.1 10*3/uL (0.0-0.1); BASO % 0.4 % (0.0-1.0); EOS # 0.2 10*3/uL (0.0-0.4); EOS % 1.3 % (1.0-4.0); HEMATOCRIT 35.6 % (42.0-52.0); LYMPH # 1.7 10*3/uL (1.3-4.4); LYMPH % 12.3 % (27.0-41.0); MEAN CELL VOLUME 83.6 fl (80.0-94.0); MEAN CORPUSCULAR HGB 26.3 pg (27.0-31.0); MEAN CORPUSCULAR HGB CONC 31.5 g/dl (33.0-37.0); MEAN PLATELET VOLUME 10.9 fl (9.6-12.3); MONO # 0.7 10*3/uL (0.1-1.0); MONO % 5.1 % (3.0-9.0); NEUT % 80.6 % (47.0-73.0); PLATELET COUNT AUTOMATED 232 10*3/uL (130-400); RED BLOOD COUNT 4.26 10*6/uL (4.50-5.90); RED CELL DISTRI WIDTH 15.2 % (0-14.5); WHITE BLOOD COUNT 13.6 10*3/uL (4.8-10.8)
[2020-06-16 18:04] LABS: ACT PARTIAL THROMBO TIME 27.3 SECONDS (20.0-32.1)
[2020-06-16 18:12] LABS: ALBUMIN 2.6 gm/dl (3.1-4.5); ALKALINE PHOSPHATASE 112 U/L (45-117); BUN 10 mg/dl (7-24); CHLORIDE 102 mmol/L (98-107); CREATININE 0.95 mg/dL (0.70-1.30); POTASSIUM 3.9 mmol/L (3.5-5.1); SGOT/AST 12 IU/L (3-35); SGPT/ALT 22 U/L (12-78); SODIUM 135 mmol/L (136-145); TOTAL PROTEIN 7.2 gm/dL (6.4-8.2)
[2020-06-16 18:13] LABS: TROPONIN I < 0.015 ng/ml (<0.045)
[2020-06-16 21:10] VITALS: BP 123/61
[2020-06-16 21:20] VITALS: BP 131/69
[2020-06-16] MEDS ORDERED: LIPITOR40 MG PO (22:17)
[2020-06-16] MEDS ORDERED: LISINOPRIL5 MG PO (22:18)
[2020-06-16] MEDS ORDERED: REMERON30 M1 PO (22:20)
[2020-06-16] MEDS ORDERED: NYSTATIN1 EAC3 MC (22:20)
[2020-06-16] MEDS ORDERED: ZOLOFT100 MG PO (22:24)
[2020-06-16] MEDS ORDERED: PANTOPRAZOLE SO40 MG PO (22:24)
[2020-06-16] MEDS ORDERED: VITAMIN D350 MC2 PO (22:25)
[2020-06-16] MEDS ORDERED: VISTARIL50 MG PO (22:30)
[2020-06-17] VITALS: BP 132/70
[2020-06-17 06:45] LABS: BASO # 0.1 10*3/uL (0.0-0.1); BASO % 0.4 % (0.0-1.0); EOS # 0.3 10*3/uL (0.0-0.4); EOS % 2.2 % (1.0-4.0); HEMATOCRIT 36.1 % (42.0-52.0); LYMPH # 1.7 10*3/uL (1.3-4.4); LYMPH % 14.1 % (27.0-41.0); MEAN CELL VOLUME 83.2 fl (80.0-94.0); MEAN CORPUSCULAR HGB CONC 31.3 g/dl (33.0-37.0); MEAN PLATELET VOLUME 10.7 fl (9.6-12.3); MONO # 0.7 10*3/uL (0.1-1.0); MONO % 5.5 % (3.0-9.0); NEUT # 9.1 10*3/uL (2.3-7.9); NEUT % 77.4 % (47.0-73.0); PLATELET COUNT AUTOMATED 209 10*3/uL (130-400); RED BLOOD COUNT 4.34 10*6/uL (4.50-5.90); RED CELL DISTRI WIDTH 15.1 % (0-14.5); WHITE BLOOD COUNT 11.8 10*3/uL (4.8-10.8)
[2020-06-17 07:00] LABS: BUN 10 mg/dl (7-24); CHLORIDE 102 mmol/L (98-107); CREATININE 0.92 mg/dL (0.70-1.30); POTASSIUM 3.8 mmol/L (3.5-5.1); SODIUM 138 mmol/L (136-145)
[2020-06-17 08:27] VITALS: BP 131/76
[2020-06-17 12:46] VITALS: BP 141/75
[2020-06-17 16:37] VITALS: BP 113/54
== END 2020-06-17 17:54 ==
LOC: ED 17:24 → EDHOLD 19:06 → 5E 20:08
PROVIDERS: Emergency Medicine; ADMIT Internal Medicine; ATTEND Internal Medicine
DX: R07.89 Other chest pain (principal); I25.10 Atherosclerotic heart disease of native coronary artery without angina pectoris; R73.9 Hyperglycemia, unspecified; I13.0 Hypertensive heart and chronic kidney disease with heart failure and stage 1 through stage 4 chronic kidney disease, or unspecified chronic kidney disease; N18.30 Chronic kidney disease, stage 3 unspecified; I50.9 Heart failure, unspecified; J43.9 Emphysema, unspecified; E87.6 Hypokalemia; K21.9 Gastro-esophageal reflux disease without esophagitis; E03.9 Hypothyroidism, unspecified; M19.90 Unspecified osteoarthritis, unspecified site; E66.01 Morbid (severe) obesity due to excess calories; E55.9 Vitamin D deficiency, unspecified; F32.9 Major depressive disorder, single episode, unspecified; E43 Unspecified severe protein-calorie malnutrition; Z98.890 Other specified postprocedural states; Z87.891 Personal history of nicotine dependence; Z86.73 Personal history of transient ischemic attack (TIA), and cerebral infarction without residual deficits; Z90.49 Acquired absence of other specified parts of digestive tract

== ENCOUNTER 2020-07-11 19:22 | Inpatient (IN) | payer MEDICARE ==
[~2020-07-11] VITALS: Ht 188 cm; Wt 167.6 kg
[~2020-07-11 19:22] MED LIST changes: +LIPITOR40 MG PO; +NYSTATIN1 EAC3 MC; +VISTARIL50 MG PO; +ZOLOFT100 MG PO
[2020-07-11 19:26] VITALS: BP 117/56
[2020-07-11 19:54] LABS: BASO # 0.1 10*3/uL (0.0-0.1); BASO % 0.7 % (0.0-1.0); EOS # 0.2 10*3/uL (0.0-0.4); EOS % 1.4 % (1.0-4.0); HEMATOCRIT 34.8 % (42.0-52.0); LYMPH # 1.9 10*3/uL (1.3-4.4); MEAN CELL VOLUME 82.1 fl (80.0-94.0); MEAN CORPUSCULAR HGB 25.9 pg (27.0-31.0); MEAN CORPUSCULAR HGB CONC 31.6 g/dl (33.0-37.0); MONO # 0.8 10*3/uL (0.1-1.0); MONO % 4.9 % (3.0-9.0); NEUT % 80.3 % (47.0-73.0); PLATELET COUNT AUTOMATED 256 10*3/uL (130-400); RED BLOOD COUNT 4.24 10*6/uL (4.50-5.90); RED CELL DISTRI WIDTH 15.9 % (0-14.5); WHITE BLOOD COUNT 16.2 10*3/uL (4.8-10.8)
[2020-07-11 20:06] LABS: ACT PARTIAL THROMBO TIME 28.5 SECONDS (20.0-32.1)
[2020-07-11 20:11] LABS: ALBUMIN 2.5 gm/dl (3.1-4.5); ALKALINE PHOSPHATASE 131 U/L (45-117); BUN 12 mg/dl (7-24); CHLORIDE 99 mmol/L (98-107); CREATININE 1.05 mg/dL (0.70-1.30); POTASSIUM 4.1 mmol/L (3.5-5.1); SGOT/AST 9 IU/L (3-35); SGPT/ALT 27 U/L (12-78); SODIUM 133 mmol/L (136-145); TOTAL PROTEIN 7.5 gm/dL (6.4-8.2)
[2020-07-11 20:12] LABS: TROPONIN I < 0.015 ng/ml (<0.045)
[2020-07-11 20:20] VITALS: BP 123/61
[2020-07-11 21:33] VITALS: BP 106/56
[2020-07-11 22:26] VITALS: BP 120/59
[2020-07-12 00:45] VITALS: BP 142/90
[2020-07-12] MEDS ORDERED: ANORO ELLIPTA1 EACH INH (01:07)
[2020-07-12] MEDS ORDERED: KETOCONAZOLE 1120 ML T (01:09)
[2020-07-12] MEDS ORDERED: PAIN RELIEVER650 MG PO (01:15)
[2020-07-12] MEDS ORDERED: Accuneb 0.1.25 MG/3 INH (01:16)
[2020-07-12] MEDS ORDERED: DULCOLAX10 M1 R (01:18)
[2020-07-12] MEDS ORDERED: VISTARIL50 MG PO (01:20)
[2020-07-12] MEDS ORDERED: FLEET ENEMA 13133 ML R (01:20)
[2020-07-12] MEDS ORDERED: LOPERAMIDE HCL2 MG PO (01:22)
[2020-07-12] MEDS ORDERED: LOPERAMIDE HCL2 M1 PO (01:23)
[2020-07-12] MEDS ORDERED: PROVENTIL HFA6.7 GM INH (01:25)
[2020-07-12 08:00] VITALS: BP 115/85; BP 116/58
[2020-07-12 12:00] VITALS: BP 127/89
[2020-07-12 16:00] VITALS: BP 101/50
[2020-07-12 20:00] VITALS: BP 103/54
[2020-07-13 00:04] VITALS: BP 146/87
[2020-07-13 08:00] VITALS: BP 140/80
[2020-07-13 12:00] VITALS: BP 131/69
== END 2020-07-13 17:45 | DRG 313 ==
LOC: ED 19:22 → 5E 22:15 → EDHOLD 22:15 → 5E 07-12 00:12
PROVIDERS: Emergency Medicine; ADMIT Internal Medicine; ATTEND Internal Medicine
DX: R07.89 Other chest pain (principal); F33.0 Major depressive disorder, recurrent, mild; J96.10 Chronic respiratory failure, unspecified whether with hypoxia or hypercapnia; Z68.42 Body mass index [BMI] 45.0-49.9, adult; I25.10 Atherosclerotic heart disease of native coronary artery without angina pectoris; E66.01 Morbid (severe) obesity due to excess calories; J43.2 Centrilobular emphysema; I10 Essential (primary) hypertension; E03.9 Hypothyroidism, unspecified; E78.2 Mixed hyperlipidemia; K21.00 Gastro-esophageal reflux disease with esophagitis, without bleeding; F51.04 Psychophysiologic insomnia

== ENCOUNTER 2020-07-19 22:17 | Emergency (ER) | payer MEDICARE ==
[~2020-07-19] VITALS: Ht 190.5 cm; Wt 176.4 kg
[~2020-07-19 22:17] MED LIST changes: +Accuneb 0.1.25 MG/3 INH; +DULCOLAX10 M1 R; +KETOCONAZOLE 1120 ML T; +LOPERAMIDE HCL2 M1 PO; +PAIN RELIEVER650 MG PO; +PROVENTIL HFA6.7 GM INH
[2020-07-19 22:53] LABS: BASO # 0.1 10*3/uL (0.0-0.1); BASO % 0.4 % (0.0-1.0); EOS # 0.2 10*3/uL (0.0-0.4); EOS % 1.5 % (1.0-4.0); HEMATOCRIT 35.2 % (42.0-52.0); LYMPH # 1.6 10*3/uL (1.3-4.4); LYMPH % 10.4 % (27.0-41.0); MEAN CELL VOLUME 81.5 fl (80.0-94.0); MEAN CORPUSCULAR HGB 25.9 pg (27.0-31.0); MEAN CORPUSCULAR HGB CONC 31.8 g/dl (33.0-37.0); MEAN PLATELET VOLUME 11.1 fl (9.6-12.3); MONO # 0.6 10*3/uL (0.1-1.0); MONO % 3.9 % (3.0-9.0); NEUT % 83.3 % (47.0-73.0); PLATELET COUNT AUTOMATED 233 10*3/uL (130-400); RED BLOOD COUNT 4.32 10*6/uL (4.50-5.90); RED CELL DISTRI WIDTH 16.3 % (0-14.5); WHITE BLOOD COUNT 15.7 10*3/uL (4.8-10.8)
[2020-07-19 23:12] LABS: ALBUMIN 2.5 gm/dl (3.1-4.5); ALKALINE PHOSPHATASE 118 U/L (45-117); BUN 14 mg/dl (7-24); CHLORIDE 105 mmol/L (98-107); CREATININE 1.04 mg/dL (0.70-1.30); POTASSIUM 3.9 mmol/L (3.5-5.1); SGOT/AST 18 IU/L (3-35); SGPT/ALT 28 U/L (12-78); SODIUM 134 mmol/L (136-145); TOTAL PROTEIN 7.3 gm/dL (6.4-8.2)
[2020-07-19] MEDS ORDERED: LEVOFLOXACIN750 M2 PO (23:49)
== END 2020-07-19 23:59 | disposition home or self-care (01) ==
LOC: ED 22:17
PROVIDERS: Internal Medicine
DX: J90 Pleural effusion, not elsewhere classified (principal); E88.09 Other disorders of plasma-protein metabolism, not elsewhere classified; R06.00 Dyspnea, unspecified; D72.829 Elevated white blood cell count, unspecified; D64.9 Anemia, unspecified; Z79.899 Other long term (current) drug therapy; Z79.84 Long term (current) use of oral hypoglycemic drugs; Z79.2 Long term (current) use of antibiotics; Z98.890 Other specified postprocedural states

== ENCOUNTER 2020-08-03 05:37 | Emergency (ER) | payer MEDICARE ==
[~2020-08-03 05:37] MED LIST changes: +LEVOFLOXACIN750 M2 PO
[2020-08-03 06:01] LABS: BASO # 0.1 10*3/uL (0.0-0.1); BASO % 0.6 % (0.0-1.0); EOS # 0.7 10*3/uL (0.0-0.4); EOS % 4.6 % (1.0-4.0); LYMPH # 1.9 10*3/uL (1.3-4.4); LYMPH % 11.6 % (27.0-41.0); MEAN CELL VOLUME 81.4 fl (80.0-94.0); MEAN CORPUSCULAR HGB 25.8 pg (27.0-31.0); MEAN CORPUSCULAR HGB CONC 31.7 g/dl (33.0-37.0); MEAN PLATELET VOLUME 10.8 fl (9.6-12.3); MONO # 0.9 10*3/uL (0.1-1.0); MONO % 5.6 % (3.0-9.0); NEUT # 12.3 10*3/uL (2.3-7.9); PLATELET COUNT AUTOMATED 229 10*3/uL (130-400); RED CELL DISTRI WIDTH 16.4 % (0-14.5)
[2020-08-03 06:16] LABS: ALBUMIN 2.8 gm/dl (3.1-4.5); ALKALINE PHOSPHATASE 118 U/L (45-117); BUN 15 mg/dl (7-24); CHLORIDE 101 mmol/L (98-107); CREATININE 0.95 mg/dL (0.70-1.30); POTASSIUM 4.1 mmol/L (3.5-5.1); SGOT/AST 14 IU/L (3-35); SGPT/ALT 24 U/L (12-78); SODIUM 134 mmol/L (136-145); TOTAL PROTEIN 7.5 gm/dL (6.4-8.2)
[2020-08-03 06:24] LABS: TROPONIN I < 0.015 ng/ml (<0.045)
== END 2020-08-03 12:15 | disposition home or self-care (01) ==
LOC: ED 05:37
PROVIDERS: Emergency Medicine
DX: R07.89 Other chest pain (principal); R06.02 Shortness of breath; R42 Dizziness and giddiness; I25.10 Atherosclerotic heart disease of native coronary artery without angina pectoris; R11.0 Nausea; E11.22 Type 2 diabetes mellitus with diabetic chronic kidney disease; I13.0 Hypertensive heart and chronic kidney disease with heart failure and stage 1 through stage 4 chronic kidney disease, or unspecified chronic kidney disease; N18.31 Chronic kidney disease, stage 3a; I50.32 Chronic diastolic (congestive) heart failure; F31.9 Bipolar disorder, unspecified; K21.9 Gastro-esophageal reflux disease without esophagitis; E03.9 Hypothyroidism, unspecified; M19.90 Unspecified osteoarthritis, unspecified site; I25.2 Old myocardial infarction; E78.2 Mixed hyperlipidemia; Z79.2 Long term (current) use of antibiotics; Z79.899 Other long term (current) drug therapy; Z86.73 Personal history of transient ischemic attack (TIA), and cerebral infarction without residual deficits; Z98.890 Other specified postprocedural states; Z87.891 Personal history of nicotine dependence

== ENCOUNTER 2020-09-06 21:43 | Emergency (ER) | payer MEDICARE ==
[~2020-09-06] VITALS: Ht 187.9 cm; Wt 172.9 kg
[~2020-09-06 21:43] MED LIST changes: -Accuneb 0.1.25 MG/3 INH; -DULCOLAX10 M1 R; -MILK OF MA400 MG/51 PO
[2020-10-02] MEDS ORDERED: NATURE'S BLEND F1 MG PO (02:01)
[2020-10-02] MEDS ORDERED: NYSTATIN15 GM T (02:07)
[2020-10-02] MEDS ORDERED: VISTARIL50 MG PO (02:11)
[2020-10-02] MEDS ORDERED: KETOCONAZOLE 1120 ML T (02:12)
[2020-10-02] MEDS ORDERED: ONDANSETRON HYDR8 MG PO (02:14)
== END 2020-09-07 03:11 | disposition home or self-care (01) ==
LOC: ED 21:43
DX: S09.90XA Unspecified injury of head, initial encounter (principal); M51.9 Unspecified thoracic, thoracolumbar and lumbosacral intervertebral disc disorder; E11.22 Type 2 diabetes mellitus with diabetic chronic kidney disease; I13.0 Hypertensive heart and chronic kidney disease with heart failure and stage 1 through stage 4 chronic kidney disease, or unspecified chronic kidney disease; N18.31 Chronic kidney disease, stage 3a; I50.32 Chronic diastolic (congestive) heart failure; J44.9 Chronic obstructive pulmonary disease, unspecified; F31.9 Bipolar disorder, unspecified; I25.10 Atherosclerotic heart disease of native coronary artery without angina pectoris; K21.9 Gastro-esophageal reflux disease without esophagitis; E78.2 Mixed hyperlipidemia; E66.01 Morbid (severe) obesity due to excess calories; Z79.2 Long term (current) use of antibiotics; Z79.899 Other long term (current) drug therapy; Z86.73 Personal history of transient ischemic attack (TIA), and cerebral infarction without residual deficits; Z90.89 Acquired absence of other organs; Z98.890 Other specified postprocedural states; Z87.891 Personal history of nicotine dependence; W17.89XA Other fall from one level to another, initial encounter; Y93.01 Activity, walking, marching and hiking; Y92.89 Other specified places as the place of occurrence of the external cause; Y99.8 Other external cause status

== ENCOUNTER 2020-10-04 10:14 | Inpatient (IN) | payer MEDICARE ==
[~2020-10-04] VITALS: Ht 187.9 cm; Wt 160.6 kg
[2020-10-04 10:14] VITALS: BP 145/71
[~2020-10-04 10:14] MED LIST changes: +NYSTATIN15 GM T; +ONDANSETRON HYDR8 MG PO
[2020-10-04 10:34] LABS: BASO % 0.3 % (0.0-1.0); EOS # 0.1 10*3/uL (0.0-0.4); EOS % 1.6 % (1.0-4.0); HEMATOCRIT 39.3 % (42.0-52.0); LYMPH # 0.5 10*3/uL (1.3-4.4); LYMPH % 7.6 % (27.0-41.0); MEAN CELL VOLUME 78.8 fl (80.0-94.0); MEAN CORPUSCULAR HGB 25.7 pg (27.0-31.0); MEAN CORPUSCULAR HGB CONC 32.6 g/dl (33.0-37.0); MEAN PLATELET VOLUME 10.3 fl (9.6-12.3); MONO # 0.7 10*3/uL (0.1-1.0); MONO % 11.3 % (3.0-9.0); NEUT % 78.6 % (47.0-73.0); PLATELET COUNT AUTOMATED 143 10*3/uL (130-400); RED BLOOD COUNT 4.99 10*6/uL (4.50-5.90); RED CELL DISTRI WIDTH 14.9 % (0-14.5); WHITE BLOOD COUNT 6.4 10*3/uL (4.8-10.8)
[2020-10-04 10:50] LABS: ALBUMIN 2.9 gm/dl (3.1-4.5); ALKALINE PHOSPHATASE 140 U/L (45-117); BUN 14 mg/dl (7-24); CHLORIDE 99 mmol/L (98-107); CREATININE 0.84 mg/dL (0.70-1.30); POTASSIUM 3.8 mmol/L (3.5-5.1); SGOT/AST 146 IU/L (3-35); SGPT/ALT 142 U/L (12-78); SODIUM 133 mmol/L (136-145); TOTAL PROTEIN 8.1 gm/dL (6.4-8.2)
[2020-10-04 10:51] LABS: TROPONIN I < 0.015 ng/ml (<0.045)
[2020-10-04 17:10] VITALS: BP 131/68
[2020-10-04 20:23] VITALS: BP 153/68
[2020-10-05 00:13] VITALS: BP 159/74
[2020-10-05 08:00] VITALS: BP 164/76
[2020-10-05 12:00] VITALS: BP 154/93
[2020-10-05 16:13] LABS: LIPASE 1083 U/L (73-393)
[2020-10-05 16:16] VITALS: BP 168/72
[2020-10-05 20:00] VITALS: BP 156/82
[2020-10-06] VITALS: BP 173/78
[2020-10-06 08:00] VITALS: BP 164/80
[2020-10-06 12:00] VITALS: BP 160/78
[2020-10-06 16:00] VITALS: BP 146/72
[2020-10-06 20:00] VITALS: BP 132/66
[2020-10-07] VITALS (8 sets, daily range): BP systolic 89–155; BP diastolic 53–70
[2020-10-08] VITALS: BP 126/68
[2020-10-08 06:35] LABS: HEMATOCRIT 39.2 % (42.0-52.0); MEAN CELL VOLUME 79.2 fl (80.0-94.0); MEAN CORPUSCULAR HGB 25.5 pg (27.0-31.0); MEAN CORPUSCULAR HGB CONC 32.1 g/dl (33.0-37.0); MEAN PLATELET VOLUME 11.2 fl (9.6-12.3); PLATELET COUNT AUTOMATED 142 10*3/uL (130-400); RED BLOOD COUNT 4.95 10*6/uL (4.50-5.90); RED CELL DISTRI WIDTH 15.4 % (0-14.5); WHITE BLOOD COUNT 6.9 10*3/uL (4.8-10.8)
[2020-10-08 06:37] LABS: LIPASE 745 U/L (73-393)
[2020-10-08 06:38] LABS: ALBUMIN 2.5 gm/dl (3.1-4.5); BUN 25 mg/dl (7-24); CHLORIDE 104 mmol/L (98-107); CREATININE 1.25 mg/dL (0.70-1.30); POTASSIUM 4.7 mmol/L (3.5-5.1); SGOT/AST 144 IU/L (3-35); SGPT/ALT 171 U/L (12-78); SODIUM 135 mmol/L (136-145); TOTAL PROTEIN 7.3 gm/dL (6.4-8.2)
[2020-10-08 06:39] LABS: ALKALINE PHOSPHATASE 293 U/L (45-117)
[2020-10-08 07:11] LABS: ATYPICAL LYMPHS 2 % (0-0); PLATELET SUFFICIENCY NORMAL (NORMAL); TOTAL CELLS COUNTED 100 #CELLS
[2020-10-08 07:12] LABS: MICROCYTOSIS SLIGHT
[2020-10-08 08:00] VITALS: BP 130/82
[2020-10-08 12:00] VITALS: BP 124/76
[2020-10-08 16:00] VITALS: BP 115/89
[2020-10-08 20:00] VITALS: BP 131/60
[2020-10-09] VITALS: BP 143/61
[2020-10-09 08:00] VITALS: BP 139/73
[2020-10-09 08:01] LABS: LIPASE 436 U/L (73-393)
[2020-10-09 12:00] VITALS: BP 135/85
[2020-10-09 16:00] VITALS: BP 125/56
[2020-10-09 20:00] VITALS: BP 122/46
[2020-10-10] VITALS: BP 116/42
[2020-10-10 06:31] LABS: LIPASE 443 U/L (73-393)
[2020-10-10 06:36] LABS: ALBUMIN 2.5 gm/dl (3.1-4.5); BUN 16 mg/dl (7-24); CHLORIDE 110 mmol/L (98-107); POTASSIUM 4.1 mmol/L (3.5-5.1); SODIUM 140 mmol/L (136-145)
[2020-10-10 06:40] LABS: ALKALINE PHOSPHATASE 233 U/L (45-117); CREATININE 0.99 mg/dL (0.70-1.30); SGOT/AST 86 IU/L (3-35); SGPT/ALT 132 U/L (12-78); TOTAL PROTEIN 7.5 gm/dL (6.4-8.2)
[2020-10-10 08:00] VITALS: BP 144/78
[2020-10-10 09:01] VITALS: BP 158/80
[2020-10-10] MEDS ORDERED: DOXYCYCLINE MO100 M1 PO (10:19)
[2020-10-10 12:00] VITALS: BP 124/69
== END 2020-10-10 16:45 | DRG 377 ==
LOC: ED 10:14 → EDHOLD 13:47 → 4E 13:47
PROVIDERS: Student in an Organized Health Care Education/Training Program; ADMIT Internal Medicine; ATTEND Internal Medicine
PROC: 0DB78ZX Excision of Stomach, Pylorus, Via Natural or Artificial Opening Endoscopic, Diagnostic (ICD-10-PCS; principal; 2020-10-07)
DX: K29.71 Gastritis, unspecified, with bleeding (principal); K85.90 Acute pancreatitis without necrosis or infection, unspecified; F33.9 Major depressive disorder, recurrent, unspecified; Z68.42 Body mass index [BMI] 45.0-49.9, adult; K25.4 Chronic or unspecified gastric ulcer with hemorrhage; I10 Essential (primary) hypertension; I25.10 Atherosclerotic heart disease of native coronary artery without angina pectoris; E78.2 Mixed hyperlipidemia; E89.0 Postprocedural hypothyroidism; E11.9 Type 2 diabetes mellitus without complications; J44.9 Chronic obstructive pulmonary disease, unspecified; E66.01 Morbid (severe) obesity due to excess calories; S31.104A Unspecified open wound of abdominal wall, left lower quadrant without penetration into peritoneal cavity, initial encounter; S31.103A Unspecified open wound of abdominal wall, right lower quadrant without penetration into peritoneal cavity, initial encounter; Z82.49 Family history of ischemic heart disease and other diseases of the circulatory system; X58.XXXA Exposure to other specified factors, initial encounter; Y93.89 Activity, other specified; Y92.89 Other specified places as the place of occurrence of the external cause; Y99.8 Other external cause status

== ENCOUNTER 2020-10-21 19:56 | Observation (INO) | payer MEDICARE ==
[~2020-10-21] VITALS: Ht 187.9 cm; Wt 157.1 kg
[~2020-10-21 19:56] MED LIST changes: +DOXYCYCLINE MO100 M1 PO
[2020-10-21 20:03] VITALS: BP 92/58
[2020-10-21 20:43] LABS: BASO # 0.1 10*3/uL (0.0-0.1); BASO % 0.6 % (0.0-1.0); EOS # 0.3 10*3/uL (0.0-0.4); EOS % 2.5 % (1.0-4.0); HEMATOCRIT 37.6 % (42.0-52.0); LYMPH # 1.5 10*3/uL (1.3-4.4); LYMPH % 13.5 % (27.0-41.0); MEAN CELL VOLUME 81.6 fl (80.0-94.0); MEAN CORPUSCULAR HGB 25.4 pg (27.0-31.0); MEAN CORPUSCULAR HGB CONC 31.1 g/dl (33.0-37.0); MEAN PLATELET VOLUME 10.8 fl (9.6-12.3); MONO # 0.8 10*3/uL (0.1-1.0); MONO % 6.7 % (3.0-9.0); NEUT # 8.6 10*3/uL (2.3-7.9); NEUT % 76.3 % (47.0-73.0); PLATELET COUNT AUTOMATED 187 10*3/uL (130-400); RED BLOOD COUNT 4.61 10*6/uL (4.50-5.90); RED CELL DISTRI WIDTH 15.8 % (0-14.5); WHITE BLOOD COUNT 11.3 10*3/uL (4.8-10.8)
[2020-10-21 20:59] LABS: ALBUMIN 2.7 gm/dl (3.1-4.5); ALKALINE PHOSPHATASE 205 U/L (45-117); BUN 16 mg/dl (7-24); CHLORIDE 104 mmol/L (98-107); CREATININE 1.33 mg/dL (0.70-1.30); LIPASE 498 U/L (73-393); SGOT/AST 42 IU/L (3-35); SGPT/ALT 61 U/L (12-78); SODIUM 137 mmol/L (136-145); TOTAL PROTEIN 8.2 gm/dL (6.4-8.2)
[2020-10-21 21:04] LABS: TROPONIN I < 0.015 ng/ml (<0.045)
[2020-10-21 21:37] VITALS: BP 98/62
[2020-10-22] VITALS (7 sets, daily range): BP systolic 105–128; BP diastolic 58–72
[2020-10-22 00:40] LABS: BILIRUBIN 2+ (Negative); BLOOD Negative (Negative); CLARITY Cloudy (Clear); COLOR Dark Yellow (Yellow); GLUCOSE Negative (Negative); KETONE 1+ (Negative); LEUKO ESTERASE 1+ (Negative); NITRITE Negative (Negative); SPECIFIC GRAVITY 1.025 (1.001-1.030)
[2020-10-22 00:51] LABS: BACTERIA 1+
[2020-10-22] MEDS ORDERED: LOPERAMIDE HCL2 MG PO (05:31)
[2020-10-22] MEDS ORDERED: MILK OF MA400 MG/51 PO (05:31)
[2020-10-22] MEDS ORDERED: FLEET ENEMA 13133 ML R (05:31)
[2020-10-22] MEDS ORDERED: DULCOLAX10 M1 R (05:31)
[2020-10-22] MEDS ORDERED: VISTARIL50 MG PO (05:31)
[2020-10-22] MEDS ORDERED: Accuneb 0.1.25 MG/3 INH (05:31)
[2020-10-22] MEDS ORDERED: NITROSTAT0.4 MG SL (05:31)
[2020-10-23] VITALS: BP 143/58
[2020-10-23 06:28] LABS: BASO # 0.1 10*3/uL (0.0-0.1); BASO % 1.2 % (0.0-1.0); EOS # 0.3 10*3/uL (0.0-0.4); EOS % 4.5 % (1.0-4.0); HEMATOCRIT 35.8 % (42.0-52.0); LYMPH # 1.2 10*3/uL (1.3-4.4); LYMPH % 16.6 % (27.0-41.0); MEAN CELL VOLUME 83.6 fl (80.0-94.0); MEAN CORPUSCULAR HGB 25.5 pg (27.0-31.0); MEAN CORPUSCULAR HGB CONC 30.4 g/dl (33.0-37.0); MEAN PLATELET VOLUME 11.5 fl (9.6-12.3); MONO # 0.5 10*3/uL (0.1-1.0); MONO % 7.1 % (3.0-9.0); NEUT # 5.1 10*3/uL (2.3-7.9); NEUT % 70.3 % (47.0-73.0); PLATELET COUNT AUTOMATED 163 10*3/uL (130-400); RED BLOOD COUNT 4.28 10*6/uL (4.50-5.90); RED CELL DISTRI WIDTH 15.8 % (0-14.5); WHITE BLOOD COUNT 7.3 10*3/uL (4.8-10.8)
[2020-10-23 07:34] LABS: ALBUMIN 2.3 gm/dl (3.1-4.5); ALKALINE PHOSPHATASE 174 U/L (45-117); BUN 13 mg/dl (7-24); CHLORIDE 106 mmol/L (98-107); CREATININE 1.03 mg/dL (0.70-1.30); LIPASE 313 U/L (73-393); POTASSIUM 3.9 mmol/L (3.5-5.1); SGOT/AST 37 IU/L (3-35); SGPT/ALT 51 U/L (12-78); SODIUM 137 mmol/L (136-145); TOTAL PROTEIN 7.7 gm/dL (6.4-8.2)
[2020-10-23 08:00] VITALS: BP 140/62
[2020-10-23] MEDS ORDERED: MIRALAX POWDER17 G1 PO (08:49)
[2020-10-23] MEDS ORDERED: COLACE100 MG PO (08:49)
[2020-10-23 12:00] VITALS: BP 122/73
[2020-10-23 12:34] LABS: THYROXINE (T4) TOTAL 6.7 ug/dl (4.5-12.1)
[2020-10-23 12:41] LABS: FREE T4 1.02 ng/dl (0.76-1.46); THYROID STIM HORMONE (HS) 0.723 uIU/ml (0.358-4.75)
[2020-10-23 13:01] LABS: VITAMIN D, 25-HYDROXY 48.7 ng/mL (30-100)
[2020-10-24 01:06] LABS: RBC, FOLATE HEMATOCRIT 35.9 % (37.5-51.0)
== END 2020-10-23 13:40 ==
LOC: ED 19:56 → 5E 10-22 02:04 → EDHOLD 10-22 02:04 → 5E 10-22 17:02
PROVIDERS: Counselor Professional; Emergency Medicine; ADMIT Internal Medicine; ATTEND Internal Medicine
DX: R10.31 Right lower quadrant pain (principal); R74.8 Abnormal levels of other serum enzymes; F31.9 Bipolar disorder, unspecified; J44.9 Chronic obstructive pulmonary disease, unspecified; K21.9 Gastro-esophageal reflux disease without esophagitis; I10 Essential (primary) hypertension; E66.01 Morbid (severe) obesity due to excess calories; Z68.42 Body mass index [BMI] 45.0-49.9, adult; E03.9 Hypothyroidism, unspecified; G89.4 Chronic pain syndrome; Z79.899 Other long term (current) drug therapy

== ENCOUNTER 2021-06-03 09:04 | Inpatient (IN) | payer MEDICARE ==
[~2021-06-03] VITALS: Ht 190.5 cm; Wt 159.7 kg
[~2021-06-03 09:04] MED LIST changes: +AUGMENTIN 875-875 MG PO; +AZITHROMYCIN500 M2 PO; +Accuneb 0.1.25 MG/3 INH; +BENZTROPINE ME0.5 MG PO; +COLACE100 MG PO; +DULCOLAX10 M1 R; +MILK OF MA400 MG/51 PO; +MIRALAX POWDER17 G1 PO
[2021-06-03 09:07] VITALS: BP 114/66
[2021-06-03] MEDS ORDERED: LIPITOR40 MG PO (09:34)
[2021-06-03] MEDS ORDERED: ANORO ELLIPTA1 EACH INH (09:34)
[2021-06-03] MEDS ORDERED: ABILIFY15 MG PO (09:34)
[2021-06-03] MEDS ORDERED: IRON325 M1 PO (09:35)
[2021-06-03] MEDS ORDERED: COGENTIN0.5 MG PO (09:35)
[2021-06-03] MEDS ORDERED: DOCUSATE SOD100 MG PO (09:35)
[2021-06-03] MEDS ORDERED: ATARAX,VISTARIL50 MG PO (09:36)
[2021-06-03] MEDS ORDERED: NATURE'S BLEND F1 MG PO (09:36)
[2021-06-03] MEDS ORDERED: IMDUR SA30 MG PO (09:41)
[2021-06-03] MEDS ORDERED: LEVOXYL150 MCG PO (09:42)
[2021-06-03] MEDS ORDERED: LISINOPRIL5 MG PO (09:42)
[2021-06-03] MEDS ORDERED: METFORMIN HYDR500 MG PO (09:43)
[2021-06-03] MEDS ORDERED: METOPROLOL SUCC25 M2 PO (09:43)
[2021-06-03] MEDS ORDERED: MIRTAZAPINE30 M1 PO (09:44)
[2021-06-03] MEDS ORDERED: TRILEPTAL300 MG PO (09:45)
[2021-06-03] MEDS ORDERED: PANTOPRAZOLE SO40 MG PO (09:45)
[2021-06-03] MEDS ORDERED: ASPIRIN81 M1 PO (09:45)
[2021-06-03] MEDS ORDERED: ALDACTONE25 MG PO (09:46)
[2021-06-03] MEDS ORDERED: ZOLOFT100 MG PO (09:46)
[2021-06-03] MEDS ORDERED: VITAMIN D350 MCG PO (09:47)
[2021-06-03] MEDS ORDERED: PROAIR HFA8.5 GM INH (09:48)
[2021-06-03 09:53] LABS: BASO # 0.1 10*3/uL (0.0-0.1); BASO % 0.6 % (0.0-1.0); EOS # 0.2 10*3/uL (0.0-0.4); EOS % 1.7 % (1.0-4.0); LYMPH % 15.9 % (27.0-41.0); MEAN CELL VOLUME 81.3 fl (80.0-94.0); MEAN CORPUSCULAR HGB 26.6 pg (27.0-31.0); MEAN CORPUSCULAR HGB CONC 32.7 g/dl (33.0-37.0); MEAN PLATELET VOLUME 10.9 fl (9.6-12.3); MONO # 0.8 10*3/uL (0.1-1.0); MONO % 6.5 % (3.0-9.0); NEUT # 9.5 10*3/uL (2.3-7.9); NEUT % 74.7 % (47.0-73.0); PLATELET COUNT AUTOMATED 250 10*3/uL (130-400); RED BLOOD COUNT 4.55 10*6/uL (4.50-5.90); RED CELL DISTRI WIDTH 14.2 % (0-14.5); WHITE BLOOD COUNT 12.7 10*3/uL (4.8-10.8)
[2021-06-03 10:03] LABS: ACT PARTIAL THROMBO TIME 28.1 SECONDS (20.0-32.1)
[2021-06-03 10:13] LABS: ALKALINE PHOSPHATASE 153 U/L (45-117); BUN 16 mg/dl (7-24); CHLORIDE 104 mmol/L (98-107); CREATININE 0.96 mg/dL (0.70-1.30); LIPASE 214 U/L (73-393); POTASSIUM 4.3 mmol/L (3.5-5.1); SGOT/AST 18 IU/L (3-35); SGPT/ALT 31 U/L (12-78); SODIUM 134 mmol/L (136-145); TOTAL PROTEIN 7.8 gm/dL (6.4-8.2)
[2021-06-03 13:01] VITALS: BP 118/67
[2021-06-03 13:36] LABS: BILIRUBIN Negative (Negative); BLOOD Negative (Negative); CLARITY Clear (Clear); COLOR Yellow (Yellow); GLUCOSE Negative (Negative); KETONE Negative (Negative); LEUKO ESTERASE Negative (Negative); NITRITE Negative (Negative); PH 5.5 (4.5-8.0); SPECIFIC GRAVITY 1.025 (1.001-1.030); UROBILINOGEN 0.2 E.U./dl (0.0-1.0)
[2021-06-03 13:45] LABS: RBC 0-2 rbc/hpf (0-2)
[2021-06-03 20:00] VITALS: BP 135/84
[2021-06-04] VITALS: BP 146/86
[2021-06-04 06:36] LABS: BUN 12 mg/dl (7-24); CHLORIDE 104 mmol/L (98-107); CREATININE 0.94 mg/dL (0.70-1.30); POTASSIUM 4.4 mmol/L (3.5-5.1); SODIUM 135 mmol/L (136-145)
[2021-06-04 06:57] LABS: BASO # 0.1 10*3/uL (0.0-0.1); BASO % 0.5 % (0.0-1.0); EOS # 0.3 10*3/uL (0.0-0.4); EOS % 2.7 % (1.0-4.0); LYMPH # 1.5 10*3/uL (1.3-4.4); LYMPH % 13.4 % (27.0-41.0); MEAN CELL VOLUME 81.9 fl (80.0-94.0); MEAN CORPUSCULAR HGB 26.8 pg (27.0-31.0); MEAN CORPUSCULAR HGB CONC 32.7 g/dl (33.0-37.0); MEAN PLATELET VOLUME 11.1 fl (9.6-12.3); MONO # 0.7 10*3/uL (0.1-1.0); NEUT # 8.5 10*3/uL (2.3-7.9); NEUT % 76.9 % (47.0-73.0); PLATELET COUNT AUTOMATED 200 10*3/uL (130-400); RED BLOOD COUNT 4.52 10*6/uL (4.50-5.90); WHITE BLOOD COUNT 11.1 10*3/uL (4.8-10.8)
[2021-06-04 08:00] VITALS: BP 144/66
[2021-06-04 12:00] VITALS: BP 128/68
[2021-06-04 20:00] VITALS: BP 143/60
[2021-06-05] VITALS: BP 143/62
[2021-06-05 08:00] VITALS: BP 130/68
[2021-06-05 12:00] VITALS: BP 159/77
[2021-06-05 20:00] VITALS: BP 151/82
[2021-06-06] VITALS: BP 154/78
[2021-06-06] MEDS ORDERED: LEVOTHYROXINE150 MCG PO (00:45)
[2021-06-06] MEDS ORDERED: PEPTO-BISM262 MG/11 PO (00:47)
[2021-06-06] MEDS ORDERED: MIRALAX17 GM PO (00:47)
[2021-06-06] MEDS ORDERED: ONDANSETRON HYDR8 MG PO (00:49)
[2021-06-06] MEDS ORDERED: NITROSTAT0.4 MG SL (00:50)
[2021-06-06] MEDS ORDERED: MILK OF MA400 MG/52 PO (00:50)
[2021-06-06] MEDS ORDERED: FLEET ENEMA EX230 M1 R (00:52)
[2021-06-06 08:00] VITALS: BP 140/72
[2021-06-06 12:00] VITALS: BP 130/68
[2021-06-06 16:02] VITALS: BP 134/70
[2021-06-06 20:00] VITALS: BP 147/68
[2021-06-07] VITALS: BP 162/73
[2021-06-07 06:24] LABS: BASO # 0.1 10*3/uL (0.0-0.1); BASO % 0.6 % (0.0-1.0); EOS # 0.2 10*3/uL (0.0-0.4); EOS % 1.9 % (1.0-4.0); HEMATOCRIT 36.7 % (42.0-52.0); LYMPH # 1.5 10*3/uL (1.3-4.4); LYMPH % 14.9 % (27.0-41.0); MEAN CELL VOLUME 78.4 fl (80.0-94.0); MEAN CORPUSCULAR HGB 26.3 pg (27.0-31.0); MEAN CORPUSCULAR HGB CONC 33.5 g/dl (33.0-37.0); MEAN PLATELET VOLUME 10.7 fl (9.6-12.3); MONO # 0.7 10*3/uL (0.1-1.0); MONO % 6.4 % (3.0-9.0); NEUT # 7.9 10*3/uL (2.3-7.9); NEUT % 75.8 % (47.0-73.0); PLATELET COUNT AUTOMATED 224 10*3/uL (130-400); RED BLOOD COUNT 4.68 10*6/uL (4.50-5.90); RED CELL DISTRI WIDTH 13.4 % (0-14.5); WHITE BLOOD COUNT 10.4 10*3/uL (4.8-10.8)
[2021-06-07 06:25] LABS: BUN 4 mg/dl (7-24); CHLORIDE 95 mmol/L (98-107); CREATININE 0.85 mg/dL (0.70-1.30); SODIUM 129 mmol/L (136-145)
[2021-06-07 08:00] VITALS: BP 154/79
== END 2021-06-07 12:23 | DRG 389 ==
LOC: ED 09:04 → EDHOLD 12:57 → 5E 12:57
PROVIDERS: Emergency Medicine; ADMIT Internal Medicine; ATTEND Internal Medicine
DX: K56.699 Other intestinal obstruction unspecified as to partial versus complete obstruction (principal); E87.1 Hypo-osmolality and hyponatremia; F33.1 Major depressive disorder, recurrent, moderate; Z20.822 Contact with and (suspected) exposure to COVID-19; I10 Essential (primary) hypertension; E03.9 Hypothyroidism, unspecified; I25.10 Atherosclerotic heart disease of native coronary artery without angina pectoris; K21.00 Gastro-esophageal reflux disease with esophagitis, without bleeding; Z82.49 Family history of ischemic heart disease and other diseases of the circulatory system; J44.9 Chronic obstructive pulmonary disease, unspecified

== ENCOUNTER 2021-07-23 19:45 | Emergency (ER) | payer MEDICARE ==
[~2021-07-23] VITALS: Ht 190.5 cm; Wt 179.6 kg
[~2021-07-23 19:45] MED LIST changes: +ABILIFY15 MG PO; +ASPIRIN81 M1 PO; +ATARAX,VISTARIL50 MG PO; +COGENTIN0.5 MG PO; +IRON325 M1 PO; +LEVOXYL150 MCG PO; +METFORMIN HYDR500 MG PO; +MILK OF MA400 MG/52 PO; +MIRALAX17 GM PO; +MIRTAZAPINE30 M1 PO; +PEPTO-BISM262 MG/11 PO; +PROAIR HFA8.5 GM INH; +TRILEPTAL300 MG PO; +VITAMIN D350 MCG PO
[2021-07-23 20:11] LABS: BASO # 0.1 10*3/uL (0.0-0.1); BASO % 0.6 % (0.0-1.0); EOS # 0.3 10*3/uL (0.0-0.4); EOS % 2.7 % (1.0-4.0); HEMATOCRIT 37.9 % (42.0-52.0); LYMPH # 1.9 10*3/uL (1.3-4.4); LYMPH % 15.6 % (27.0-41.0); MEAN CELL VOLUME 81.3 fl (80.0-94.0); MEAN CORPUSCULAR HGB 26.2 pg (27.0-31.0); MEAN CORPUSCULAR HGB CONC 32.2 g/dl (33.0-37.0); MEAN PLATELET VOLUME 10.9 fl (9.6-12.3); MONO # 0.8 10*3/uL (0.1-1.0); MONO % 7.1 % (3.0-9.0); NEUT # 8.7 10*3/uL (2.3-7.9); NEUT % 73.6 % (47.0-73.0); PLATELET COUNT AUTOMATED 209 10*3/uL (130-400); RED BLOOD COUNT 4.66 10*6/uL (4.50-5.90); RED CELL DISTRI WIDTH 14.4 % (0-14.5); WHITE BLOOD COUNT 11.9 10*3/uL (4.8-10.8)
[2021-07-23] MEDS ORDERED: TYLENOL325 M1 PO (20:13)
[2021-07-23 20:22] LABS: ACT PARTIAL THROMBO TIME 23.1 SECONDS (20.0-32.1); INTERNATIONAL NORM RATIO 0.9 (2.0-3.5)
[2021-07-23 20:27] LABS: ALKALINE PHOSPHATASE 140 U/L (45-117); BUN 18 mg/dl (7-24); CHLORIDE 104 mmol/L (98-107); CREATININE 0.93 mg/dL (0.70-1.30); POTASSIUM 4.6 mmol/L (3.5-5.1); SGOT/AST 15 IU/L (3-35); SGPT/ALT 34 U/L (12-78); SODIUM 135 mmol/L (136-145); TOTAL PROTEIN 7.5 gm/dL (6.4-8.2)
== END 2021-07-24 01:14 | disposition home or self-care (01) ==
LOC: ED 19:45
PROVIDERS: Emergency Medicine
DX: R07.89 Other chest pain (principal); I25.10 Atherosclerotic heart disease of native coronary artery without angina pectoris; K21.9 Gastro-esophageal reflux disease without esophagitis; M10.9 Gout, unspecified; I13.0 Hypertensive heart and chronic kidney disease with heart failure and stage 1 through stage 4 chronic kidney disease, or unspecified chronic kidney disease; N18.30 Chronic kidney disease, stage 3 unspecified; I50.9 Heart failure, unspecified; Z86.73 Personal history of transient ischemic attack (TIA), and cerebral infarction without residual deficits; Z79.899 Other long term (current) drug therapy

== ENCOUNTER → 2021-10-10 | Outpatient (CLI) | payer MEDICARE | END | disposition home or self-care (01) | LOC: RAD 09:34 | PROVIDERS: ATTEND Chiropractor Orthopedic | DX: M51.16 Intervertebral disc disorders with radiculopathy, lumbar region (principal) ==

== ENCOUNTER → 2022-02-02 | Day surgery (SDC) | payer MEDICARE ==
[~2022-02-02] VITALS: Ht 190.5 cm; Wt 163.3 kg
[2022-02-02 09:37] VITALS: BP 120/67
[2022-02-02 10:25] VITALS: BP 112/64
[2022-02-02 10:40] VITALS: BP 112/62
[2022-02-02 10:55] VITALS: BP 126/73
== END | disposition home or self-care (01) ==
LOC: SDC 01-29 13:15
PROVIDERS: ATTEND Surgery
DX: R19.5 Other fecal abnormalities (principal); K57.30 Diverticulosis of large intestine without perforation or abscess without bleeding; F41.9 Anxiety disorder, unspecified; M19.90 Unspecified osteoarthritis, unspecified site; J44.9 Chronic obstructive pulmonary disease, unspecified; G62.9 Polyneuropathy, unspecified; Z86.73 Personal history of transient ischemic attack (TIA), and cerebral infarction without residual deficits; E78.5 Hyperlipidemia, unspecified; F31.9 Bipolar disorder, unspecified; I13.0 Hypertensive heart and chronic kidney disease with heart failure and stage 1 through stage 4 chronic kidney disease, or unspecified chronic kidney disease; N18.30 Chronic kidney disease, stage 3 unspecified; I50.9 Heart failure, unspecified; K21.9 Gastro-esophageal reflux disease without esophagitis; Z79.899 Other long term (current) drug therapy